=== PATIENT | male | born 1970 | race Caucasian/White ===

== ENCOUNTER 2016-07-02 20:17 | Inpatient (IN) ==
[2016-07-02] MEDS ORDERED: MORPHINE 2 MG/1 ML SYRINGE IV STA ×2 (20:48→21:45)
[2016-07-02] MEDS ORDERED: METOPROLOL TARTRATE 25 MG TABLET PO STA (20:48)
[2016-07-02] MEDS ORDERED: ONDANSETRON 4 MG/2 ML VIAL IV STA (20:48)
[2016-07-02] MEDS ORDERED: ASPIRIN 325 MG TABLET PO STA (20:48)
[2016-07-02] MEDS ORDERED: NITROGLYCERIN 2% OINT 1 INCH/GM PACK TOP STA (20:48)
[2016-07-02] MEDS ORDERED: METOPROLOL TARTRATE 5 MG/5 ML VIAL IV STA (20:50)
[2016-07-02 20:55] LABS: Basophils # 0.1 10*3/uL (0.0-0.2); Basophils % 0.8 % (0.0-0.8); Eosinophils # 0.4 10*3/uL (0.0-0.87); Eosinophils % 2.6 % (0.00-10.9); Hematocrit 45.7 VOL% (42.0-52.0); Hemoglobin 15.7 GM/DL (14.0-18.0); Immature Granulocytes % 0.9 %; Immature Granulocytes Absolute 0.13 #; Lymphocytes % 27.9 % (21.2-54.2); Mean Corpuscular HGB Conc 34.4 GM/DL (32-36); Mean Corpuscular Hemoglobin 31 PG (27-34); Mean Corpuscular Volume 89.6 FL (87-102); Mean Platelet Volume 9.1 FL (9.6-12.0); Monocytes # 1.3 10*3/uL (0.11-0.8); Monocytes % 8.8 % (1.7-12.7); Neutrophils # 8.5 10*3/uL (1.4-7.4); Platelet Count 307 10*3/uL (130-400); Red Cell Distribution Width 12.7 % (9.3-17.3); White Blood Count 14.5 10*3/uL (4.5-13.71)
[2016-07-02] MEDS ORDERED: NITROGLYCERIN 2% OINT 1 INCH/GM PACK TOP ONE (20:59)
[2016-07-02] MEDS ORDERED: ONDANSETRON 4 MG/2 ML VIAL ONE (20:59)
[2016-07-02] MEDS ORDERED: MORPHINE 2 MG/1 ML SYRINGE ONE ×2 (20:59→21:47)
[2016-07-02] MEDS ORDERED: ASPIRIN 325 MG TABLET ONE (20:59)
[2016-07-02] MEDS ORDERED: METOPROLOL TARTRATE 5 MG/5 ML VIAL IV ONE (20:59)
--- NOTE | 2016-07-02 21:00 | Emergency Department Note ---
ICher Kasabria, am scribing for, and in the presence of, Pierre López MD 20:54. Rene Denson Charles R, MD, personally performed the services described in this documentation, ascribed by Leon Kwon in my presence, and it is both accurate and complete . Arrival - Arrival Chief Complaint: Chest Pain Stated Complaint: CHEST PAIN/NITRO X3 ED Nursing Triage Note: PATIENT COMPLAINS OF LEFT SIDED CHEST PAIN THAT RADIATES DOWN LEFT ARM AND UP LEFT SIDE OF NECK. STATES THAT PAIN BEGAN AFTER JUDAISM THIS EVENING. PATIENT STATES THAT HE IS NAUSEATED UPON TRIAGE. HX OF 3 AR WITH 5 STENTS PLACED. LAST STENT PLACED IN March BY DR. ARNOLD. 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 Mode of Arrival: Wheelchair Limitations: No Limitations Source: Patient Time Seen by Provider: 07/02/16 20:40 - History of Present Illness HPI Narrative: This is a 45 y/o white male presenting to the ED with c/o left sided chest pain that radiates into his neck and down his left arm that onset 2 hours ago while at [employer] [facility]. He states he has had 3 AR within the past few years and his EKG is normal but his Troponin levels are always elevated when the chest pain onset. Pt takes Plavix and ASA daily. He had five stents placed in March [address] Arnold and his educational specialist is Dr. Simon. Pt states his pain level is 5/5. He is nauseated, diaphoretic, and mildly SOB but denies fever, chills, vomiting, diarrhea, abdominal pain, and cough. Pt has a PMHx of CAD, HTN , and AR. Onset (ago): hour(s) (3) Consistency: constant Severity: moderate Allergies/Adverse Reactions: Allergies Allergy/AdvReac Type Severity Reaction Status Date / Time No Known Allergies Allergy Verified 01/12/15 19:53 Home Medications: Home Medications Medication Instructions Recorded Confirmed Type Aspirin EC Tab 81 mg PO DAILY tablet 10/25/14 04/22/16 Rx Nitroglycerin Sl Tab [Nitrostat] 0.4 mg SL Q5M PRN #20 tablet 10/25/14 04/22/16 Rx Rosuvastatin Calcium [Crestor] 40 mg PO BEDTIME 03/24/16 04/22/16 History Valsartan/Hydrochlorothiazide 1 each PO QAM 03/25/16 04/22/16 History [Valsartan-Hctz 160-25 mg Tab] Clopidogrel [Plavix] 75 mg PO DAILY #30 tablet 03/26/16 04/22/16 Rx Albuterol Sulfate [Ventolin HFA] 2 puff INH Q6H PRN 04/22/16 04/22/16 History Pantoprazole Tab [Protonix Tab] 40 mg PO BEDTIME 04/22/16 04/22/16 History Clorazepate [Tranxene] 7.5 mg PO BID PRN #60 tablet 04/27/16 Rx Ibuprofen 400 mg PO Q6-8H PRN #30 tablet 04/27/16 Rx Isosorbide Mononitrate [Imdur] 60 mg PO BEDTIME #30 tablet 04/27/16 Rx Polyethylene Glycol Powder 17 gm PO DAILY powder 04/27/16 Rx [Miralax] amLODIPine [Norvasc] 5 mg PO DAILY #30 tablet 04/27/16 Rx Review of System - Review of System 12 point system: reviewed and no additional remarkable complaints except as stated - Review of System Constitutional: Present: diaphoresis. Absent: chills, fever Eyes: Absent: vision change Head/Ears/Nose/Throat: Absent: earache Respiratory: Absent: cough, respiratory distress, wheezing Cardiovascular: Present: chest pain (left sided ), dyspnea on exertion. Absent : syncope Gastrointestinal: Present: nausea. Absent: abdominal pain, vomiting, diarrhea Genitourinary male: Absent: dysuria Musculoskeletal: Present: arm pain (radiating left arm pain from chest pain ). Absent: back pain, leg pain, neck pain Skin: Absent: rash Neurological: Absent: headache, weakness, numbness, confusion, abnormal gait, vertigo Psychiatric: Absent: anxiety Endocrine: Absent: fatigue Hematological/Lymphatic: Absent: easy bleeding Allergic/Immunologic: Absent: facial swelling Medical,Surgical,& Family Hx - Medical History Cardio: History of: CAD, Hypertension, AR Neurology: No history of: Seizures Endocrine: History of: Dyslipidemia Musculoskeletal: History of: Musculoskeletal Problems (right and left shoulder problems) - Surgical History Cardiac Surgeries: Sugical HX of: Cardiac Catheterization (with stents APR 05 X5) Patient Denies: Carotid Endarterectomy Thoracic Surgeries: Patient denies;: Lobectomy HEENT Surgeries: Patient denies: Carotid Endarterectomy, Eye Surgery, Tonsilectomy & Adenoidectomy Orthopedic Surgeries: Surgical HX of;: Orthopedic Surgery (bilateral shoulder surgery. His left shoulder surgery now with) - Family History Family History: Reports;: Family Heart Disease (father at age 69 and had coronary stents) - Social History Smoking Status: Current every day smoker Frequency of Alcohol Use: None Type of Drug Use: None Exam Vital Signs: Vital Signs Temperature 98.3 F 07/02/16 20:26 Pulse Rate 118 H 07/02/16 20:26 Respiratory Rate 22 07/02/16 20:26 Blood Pressure 141/107 07/02/16 20:26 O2 Sat by Pulse Oximetry 94 L 07/02/16 20:26 - General General appearance: alert, in no apparent distress - Head Head exam: Present: atraumatic, normocephalic, normal inspection - Eye Eye exam: Present: normal appearance, PERRL, EOMI - ENT ENT exam: Present: normal exam, normal oropharynx, mucous membranes moist, TM's normal bilaterally, normal external ear exam - Neck Neck exam: Present: normal inspection, full ROM, trachea midline. Absent: tenderness - Chest Chest inspection: Present: symmetric chest wall rise, tenderness (left sided chest pain ) - Respiratory Respiratory exam: Present: normal lung sounds bilaterally, accessory muscle use , prolonged expiratory phase - Cardiovascular Cardiovascular exam: Present: normal rhythm, tachycardia, normal heart sounds. Absent: regular rate - Abdominal Exam Abdominal exam: Present: soft, normal bowel sounds. Absent: distention, tenderness, guarding - Extremities Exam Extremities exam: Present: normal inspection, full ROM, normal capillary refill. Absent: tenderness, pedal edema, calf tenderness - Back Exam Back exam: Present: normal inspection, full ROM. Absent: tenderness - Neurological Exam Neurological exam: Present: alert, oriented X3, CN II-XII intact, normal gait, reflexes normal - Psychiatric Psychiatric exam: Present: normal affect, normal mood - Skin Skin exam: Present: warm, intact, normal color, diaphoresis. Absent: dry Course - Consultations Consultation #1: Dr Harris will admit pt Time: 22:05 Results - Labs CBC & BMP: 07/02/16 20:41 07/02/16 20:52 Lab Results: I have reviewed the patients labs Disposition Clinical Impression: Unstable angina pectoris, CAD (coronary artery disease), Chest pain, Acute chest pain, Dyslipidemia, Hypertension Case discussed with: patient, patient's family Disposition: Still a Patient Condition: Stable Time of Disposition: 22:06
[2016-07-02 21:07] LABS: D-Dimer <= 0.5 MG/L FEU; PT Patient Result 10.2 SECS
--- NOTE | 2016-07-02 21:17 | XRay Report ---
XR chest 1V portable Indication: Chest pain Comparison: Chest x-ray dated April 22, 2016 Technique: Single frontal view of the chest Findings: Continued mild cardiomegaly. Chronic changes of the lungs without focal consolidation, pleural effusion, or pneumothorax. Osseous and surrounding soft tissue structures appear grossly unchanged. IMPRESSION: Mild cardiomegaly without elizabeth pulmonary edema. PROCEDURE INTERPRETED AT [facility] DEPARTMENT OF RADIOLOGY Final Report Signed by: Dr Dylan Reno
[2016-07-02 21:45] LABS: Alanine Aminotransferase 20 U/L (16-61); Albumin 3.9 G/DL (3.4-5.0); Alkaline Phosphatase 114 U/L (45-117); Aspartate Amino Transferase 17 U/L (0-37); Bilirubin,Total < 0.39 MG/DL (0.2-1.0); Blood Urea Nitrogen 10 MG/DL (7-18); Glucose 111 MG/DL (74-106); Magnesium 2.2 MG/DL (1.8-2.4); Osmolality,Calculated 278.4 MOS/KG (273-304); Potassium 3.7 MMOL/L (3.5-5.1); Sodium 140 MMOL/L (136-145); Total Protein 7.7 G/DL (6.4-8.3)
[2016-07-02] MEDS ORDERED: ENOXAPARIN 100 MG/ML SYRINGE SUBCUT STA (22:01)
[2016-07-02] MEDS ORDERED: ENOXAPARIN 100 MG/ML SYRINGE SUBCUT ONE (22:14)
[2016-07-02] MEDS ORDERED: MAGNESIUM SULF RIDER 2 GM in PREMIX 1 EACH IV PRN (22:59)
[2016-07-02] MEDS ORDERED: ONDANSETRON 4 MG/2 ML VIAL IV PRN (22:59)
[2016-07-02] MEDS ORDERED: MAGNESIUM SULF RIDER 4 GM in PREMIX 1 EACH IV PRN (22:59)
[2016-07-02] MEDS ORDERED: ALBUTEROL 2.5 MG/3 ML NEB RESP TX PRN (22:59)
[2016-07-02] MEDS ORDERED: SODIUM CHLORIDE 0.9% 1,000 ML IV SCH (22:59)
[2016-07-02] MEDS ORDERED: POTASSIUM CHLORIDE 20 MEQ TABLET PO PRN (22:59)
[2016-07-02] MEDS: CLORAZEPATE 7.5 MG TABLET PO PRN (23:13)
[2016-07-02] MEDS: NITROGLYCERIN SL 0.4 MG TABLET SL PRN ×3 (23:15→23:40)
[2016-07-02] MEDS: MORPHINE 2 MG/1 ML SYRINGE IV PRN (23:20)
[2016-07-02] MEDS: ENOXAPARIN 100 MG/ML SYRINGE SUBCUT SCH (23:30)
[2016-07-02] MEDS ORDERED: HYDROmorphone 2 MG/1 ML VIAL IV PRN (23:48)
[2016-07-02] MEDS ORDERED: HYDROmorphone 2 MG/1 ML VIAL ONE (23:50)
[2016-07-03] MEDS ORDERED: PANTOPRAZOLE 40 MG VIAL IV ONE (00:05)
[2016-07-03] MEDS ORDERED: ALUMINUM/MAGNES/SIMETH MAX STR 30 ML UDCUP PO PRN (00:08)
[2016-07-03] MEDS: NITROGLYCERIN DRIP 50 MG/250 ML BOTTLE IV SCH ×2 (00:11→22:54)
[2016-07-03] MEDS: NITROGLYCERIN 2% OINT 1 INCH/GM PACK TOP SCH ×4 (00:11→18:25)
[2016-07-03] MEDS ORDERED: MIDAZOLAM 2 MG/2 ML VIAL IV PRN (00:24)
[2016-07-03] MEDS: CLORAZEPATE 7.5 MG TABLET PO PRN ×2 (00:35→18:39)
[2016-07-03] MEDS: METOPROLOL TARTRATE 25 MG TABLET PO SCH ×2 (00:35→09:17)
[2016-07-03] MEDS: MIDAZOLAM 2 MG/2 ML VIAL IV PRN (01:35)
[2016-07-03] MEDS: MORPHINE 2 MG/1 ML SYRINGE IV PRN ×4 (03:08→20:23)
[2016-07-03 06:06] LABS: Basophils # 0.1 10*3/uL (0.0-0.2); Basophils % 0.8 % (0.0-0.8); Eosinophils # 0.4 10*3/uL (0.0-0.87); Eosinophils % 2.9 % (0.00-10.9); Hematocrit 42.3 VOL% (42.0-52.0); Hemoglobin 14.2 GM/DL (14.0-18.0); Immature Granulocytes % 0.9 %; Immature Granulocytes Absolute 0.13 #; Lymphocytes # 4.6 10*3/uL (1.4-4.0); Lymphocytes % 32.2 % (21.2-54.2); Mean Corpuscular HGB Conc 33.6 GM/DL (32-36); Mean Corpuscular Hemoglobin 31 PG (27-34); Mean Corpuscular Volume 91.8 FL (87-102); Mean Platelet Volume 9.6 FL (9.6-12.0); Monocytes # 1.1 10*3/uL (0.11-0.8); Monocytes % 7.7 % (1.7-12.7); Neutrophils # 7.9 10*3/uL (1.4-7.4); Neutrophils % 55.5 % (38.7-73.9); Platelet Count 322 10*3/uL (130-400); Red Blood Count 4.61 10*6/uL (3.8-5.5); Red Cell Distribution Width 12.8 % (9.3-17.3); White Blood Count 14.2 10*3/uL (4.5-13.71)
--- NOTE | 2016-07-03 06:29 | EKG Report ---
Stationary ECG Study [facility] Test Date: 07/02/2016 11:24:45 PM Pat Name: STEPHAN DIALLO Department: Room: 129 Gender: M Pilot: : 1970 Requested by: Raleigh Harris Order Number: [id number] Reading MD: JOAN PAEZ Intervals [place] Rate: 98 P: 48 NV: 162 QRS: 64 QRSD: 77 T: 62 QT: 325 QTc: 381 Interpretive Statements SINUS RHYTHM "HEART ALERT" Electronically Signed On 07-03-16 07:38:24 CONVENTIONAL UNDERWRITER by JOAN PAEZ [email or web address]
[2016-07-03 06:35] LABS: Albumin 3.5 G/DL (3.4-5.0); Bilirubin,Total 0.6 MG/DL (0.2-1.0); Calcium 8.3 MG/DL (8.5-10.1); Magnesium 2.2 MG/DL (1.8-2.4); Osmolality,Calculated 281.1 MOS/KG (273-304); Potassium 4.1 MMOL/L (3.5-5.1); Risk Ratio 3.88; Total Protein 6.8 G/DL (6.4-8.3); VLDL CHOLESTEROL 91.6 MG/DL
--- NOTE | 2016-07-03 07:32 | EKG Report ---
Stationary ECG Study [facility] Test Date: 07/03/2016 7:30:39 AM Pat Name: STEPHAN DIALLO Department: Room: 129 Gender: M Lettuce Cutter: DAVID : 1970 Requested by: Raleigh Harris Order Number: [id number] Reading MD: JOAN PAEZ Intervals [place] Rate: 68 P: 31 FL: 153 QRS: 55 QRSD: 85 T: 62 QT: 364 QTc: 382 Interpretive Statements SINUS RHYTHM Electronically Signed On 07-03-16 07:47:38 INSTITUTIONAL RESEARCH DIRECTOR by JOAN PAEZ [email or web address]
--- NOTE | 2016-07-03 07:41 | XRay Report ---
Exam: XR chest 1V Date: 07/02/2016 11:38 PM Comparison: 07/02/2016 Indication: Chest pain Technique: Portable sitting chest Findings: The heart remains minimally enlarged. No significant change in the appearance of the lungs with chronic scarring. Stable mediastinum and osseous structures. Impression: No acute cardiopulmonary pathology identified. PROCEDURE INTERPRETED AT [facility] DEPARTMENT OF RADIOLOGY Final Report Signed by: Dr. Dana Maya
--- NOTE | 2016-07-03 07:51 | XRay Report ---
Portable chest Date 07/03/2016] Clinical history: Shortness of breath Comparison: 07/02/2016 Technique: Portable AP sitting chest Findings: The heart is borderline in size. Progressive parenchymal findings in the right lower lung zone with very small right pleural effusion. The left lung is more stable appearance. Stable mediastinum and osseous structures. Impression: Progressive atelectasis/infiltration/the right lung base with very small right pleural effusion. PROCEDURE INTERPRETED AT [facility] DEPARTMENT OF RADIOLOGY Final Report Signed by: Dr. Dana Maya
--- NOTE | 2016-07-03 08:07 | Cardiology History & Physical ---
Assessment and Plan (1) Unstable angina Status: Acute Current Visit: Yes (2) CAD (coronary artery disease) Status: Chronic Assessment and plan: 45-year-old male, presenting with unstable angina, suspicious for Prinzmetal's. CAD, status post prior LAD and RCA PCI, smoking, depression/anxiety, smoking, FA PSA post cath. He is still in pain despite medical management. So far, presentation does not suggest extracardiac pain or PE. WBC elevated, without obvious signs of sepsis. -Discussed pathology, prognosis, risks and benefits of management. We will proceed with cardiac catheterization. -Continue aspirin and Plavix, was an early age. -Continue metoprolol. Start Cardizem 30 mg 3 times a day. If he has no significant epicardial disease, and this is truly Prinzmetal's, we'll discontinue the metoprolol and increase the Cardizem to the maximum tolerated dose. -Continue nitroglycerin. -Continue high-dose statin. -Cardiac rehabilitation consult, again discussed the importance of smoking cessation is to control his symptoms. -Keep the ICU. Current Visit: Yes (3) Dyslipidemia Status: Chronic Current Visit: Yes (4) Hypertension Status: Chronic Current Visit: Yes (5) Nausea & vomiting Status: Acute Current Visit: No (6) Depression Status: Chronic Current Visit: No (7) Tobacco abuse Status: Chronic Current Visit: No History of Present Illness Chief complaint: CP History of present illness: Mr. King is a 45 year old male with history of CAD, status post stenting of the LAD and RCA in 2014. He had recurrent chest pain since, and underwent redo cardiac catheterization, which showed stable CAD. Unfortunately, he keeps smoking. He also has lots of anxiety issues. 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 Last night, while he was at rest, developed retrosternal severe chest pain which lasted for hours and he came to the emergency room for evaluation. Nitroglycerin an GI cocktail provided only minimal relief and he was admitted to the ICU. He was started on heparin, aspirin and Plavix was continued, and NTG drip was started, which provided moderate relief. Initial EKG was normal and cardiac biomarkers are normal. Repeat EKG shows borderline ST elevation in inferior and apical leads. He is to having chest discomfort. Blood pressure and heart rate is well controlled. He denies leg swelling shortness of breath but has lots of anxiety issues. He had PSA due to a prior catheterization, which required thrombin injection. Home Medications Medication Instructions Recorded Confirmed Type Aspirin EC Tab 81 mg PO DAILY tablet 10/25/14 07/03/16 Rx Nitroglycerin Sl Tab [Nitrostat] 0.4 mg SL Q5M PRN #20 tablet 10/25/14 07/03/16 Rx Rosuvastatin Calcium [Crestor] 40 mg PO BEDTIME 03/24/16 07/03/16 History Valsartan/Hydrochlorothiazide 1 each PO QAM 03/25/16 07/03/16 History [Valsartan-Hctz 160-25 mg Tab] Clopidogrel [Plavix] 75 mg PO DAILY #30 tablet 03/26/16 07/03/16 Rx Pantoprazole Tab [Protonix Tab] 40 mg PO BEDTIME 04/22/16 07/03/16 History Clorazepate [Tranxene] 7.5 mg PO BID PRN #60 tablet 04/27/16 07/03/16 Rx Ibuprofen 400 mg PO Q6-8H PRN #30 tablet 04/27/16 07/03/16 Rx Isosorbide Mononitrate [Imdur] 60 mg PO BEDTIME #30 tablet 04/27/16 07/03/16 Rx amLODIPine [Norvasc] 5 mg PO DAILY #30 tablet 04/27/16 07/03/16 Rx Amitriptyline HCl 75 mg PO BEDTIME 07/03/16 07/03/16 History Citalopram [CeleXA] 20 mg PO DAILY 07/03/16 07/03/16 History Allergies Allergy/AdvReac Type Severity Reaction Status Date / Time No Known Allergies Allergy Verified 01/12/15 19:53 12 point system: reviewed and no additional remarkable complaints except as stated Medical,Surgical,& Family Hx - Medical History Cardio: History of: CAD, Hypertension, NM (x3) Neurology: No history of: Seizures Endocrine: History of: Dyslipidemia Musculoskeletal: History of: Musculoskeletal Problems (right and left shoulder problems) - Surgical History Cardiac Surgeries: Sugical HX of: Cardiac Catheterization (with stents APR 05. X5) Patient Denies: Carotid Endarterectomy Thoracic Surgeries: Patient denies;: Lobectomy HEENT Surgeries: Patient denies: Carotid Endarterectomy, Eye Surgery, Tonsilectomy & Adenoidectomy Orthopedic Surgeries: Surgical HX of;: Orthopedic Surgery (bilateral shoulder surgery. His left shoulder surgery now with) - Family History Family History: Reports;: Family Heart Disease (father at age 69 and had coronary stents) - Social History Smoking Status: Current every day smoker Frequency of Alcohol Use: None Type of Drug Use: None Cardiology Physical Exam - Constitutional Vitals: Vital Signs Temp Pulse Resp BP Pulse Ox 98.7 F 71 18 109/66 92 L 07/03/16 03:59 07/03/16 06:45 07/03/16 06:45 07/03/16 06:45 07/03/16 06:45 Intake and Output 07/02/16 07/03/16 07/03/16 23:59 07:59 15:59 Intake Total 10.5 / 10.5 Balance 10.5 / 10.5 Intake: IV 10.5 / 10.5 Nitroglycerin Drip 50 mg/ 10.5 / 10.5 250 ml50 mg In 250 ml @ 5 MCG/MIN 1.5 mls/hr IV TITRATE HUGO Rx#: [id number] Oral 0 / 0 Other: Weight 103.963 kg 103.873 kg Patient Weight 07/03/16 23:59 Weight 103.873 kg General appearance: mild distress, over weight - Head Head exam: Present: normal inspection - Eye Eye exam: Absent: conjunctival injection Pupils: Absent: constricted - ENT ENT exam: Present: normal exam - Neck Neck exam: Present: normal inspection - Respiratory Respiratory exam: Present: clear to auscultation bilaterally - Cardiovascular Cardiovascular exam: Present: regular rate and rhythm - GI/Abdominal GI/Abdominal exam: Present: normal bowel sounds - Extremities Exam Extremities exam: Present: normal inspection, normal capillary refill. Absent: edema - Back Exam Back exam: Present: normal inspection - Neurological Exam Neurological exam: Present: alert, oriented X3 - Psychiatric Psychiatric exam: Present: anxious - Skin Skin exam: Present: normal color, warm. Absent: cyanosis Result/EKG - Labs CBC & BMP: 07/03/16 04:07 07/03/16 04:07 Lab Results: I have reviewed the past 24 hour labs Labs: Laboratory Results - last 24 hr 07/02/16 07/03/16 07/03/16 23:25 04:07 04:07 WBC 14.2 H RBC 4.61 Hgb 14.2 Hct 42.3 MCV 91.8 MCH 31 MCHC 33.6 RDW 12.8 Plt Count 322 MPV 9.6 Neut % (Auto) 55.5 Lymph % (Auto) 32.2 [place] % (Auto) 7.7 Eos % (Auto) 2.9 Baso % (Auto) 0.8 Neut # (Auto) 7.9 H Lymph # (Auto) 4.6 H [place] # (Auto) 1.1 H Eos # (Auto) 0.4 Baso # (Auto) 0.1 Immature Gran % 0.9 Nucleated RBC % 0.0 Immature Gran # 0.13 Nucleated RBCs # 0.00 Sodium 142 Potassium 4.1 Chloride 106 Carbon Dioxide 27 Anion Gap 13.1 BUN 10 Creatinine 0.90 GFR Calculation 128 BUN/Creatinine Ratio 11.00 Glucose 90 Calculated Osmolality 281.1 Calcium 8.3 L Magnesium 2.2 Total Bilirubin 0.60 AST 18 ALT 21 Alkaline Phosphatase 105 Troponin I < 0.015 B-Natriuretic Peptide Total Protein 6.8 Albumin 3.5 Globulin 3.3 Albumin/Globulin Ratio 1.0 L Triglycerides 458 H Cholesterol 128 LDL Cholesterol 57.0 VLDL Cholesterol 91.6 HDL Cholesterol 33 L Heart Disease Risk Ratio 3.88 07/03/16 04:07 WBC RBC Hgb Hct MCV MCH MCHC RDW Plt Count MPV Neut % (Auto) Lymph % (Auto) [place] % (Auto) Eos % (Auto) Baso % (Auto) Neut # (Auto) Lymph # (Auto) [place] # (Auto) Eos # (Auto) Baso # (Auto) Immature Gran % Nucleated RBC % Immature Gran # Nucleated RBCs # Sodium Potassium Chloride Carbon Dioxide Anion Gap BUN Creatinine GFR Calculation BUN/Creatinine Ratio Glucose Calculated Osmolality Calcium Magnesium Total Bilirubin AST ALT Alkaline Phosphatase Troponin I B-Natriuretic Peptide 3 Total Protein Albumin Globulin Albumin/Globulin Ratio Triglycerides Cholesterol LDL Cholesterol VLDL Cholesterol HDL Cholesterol Heart Disease Risk Ratio - EKG EKG results: interpreted by me
[2016-07-03] MEDS ORDERED: LIDOCAINE 1% 20 ML VIAL ONE (08:40)
[2016-07-03] MEDS ORDERED: HEPARIN/NACL 0.9% 2 UNITS/ML 1,000 ML IV ONE (08:40)
--- NOTE | 2016-07-03 08:55 | Event Note ---
The patient presented with symptoms consistent with angina. I agree with Dr. Harris the cardiac catheterization would be the best way to assess him. I discussed the risks/alternatives/benefits with the patient who understands and wishes to proceed.
[2016-07-03] MEDS ORDERED: DIAZEPAM 10 MG/2 ML SYRINGE IV ONE (08:56)
[2016-07-03] MEDS ORDERED: diphenhydrAMINE 50 MG/1 ML VIAL IV ONE (08:57)
[2016-07-03] MEDS ORDERED: DILTIAZEM 30 MG TABLET PO SCH (09:00)
[2016-07-03] MEDS ORDERED: PANTOPRAZOLE 40 MG TABLET PO SCH (09:00)
[2016-07-03] MEDS ORDERED: amLODIPine 5 MG TABLET PO SCH (09:00)
[2016-07-03] MEDS: CITALOPRAM 20 MG TABLET PO SCH (09:17)
[2016-07-03] MEDS: CLOPIDOGREL 75 MG TABLET PO SCH (09:17)
[2016-07-03] MEDS: ASPIRIN EC 81 MG TABLET PO SCH (09:18)
[2016-07-03] MEDS: POLYETHYLENE GLYCOL POWDER 17 GM PACK PO SCH (09:18)
--- NOTE | 2016-07-03 09:19 | EKG Report ---
Stationary ECG Study [facility] Test Date: 07/02/2016 8:25:45 PM Pat Name: STEPHAN DIALLO Department: Room: 129 Gender: M Financial Services Agent: Artem : 1970 Requested by: Pierre Perez Order Number: [id number] Reading MD: MAVIS CONTEH Intervals [place] Rate: 112 P: 64 CT: 146 QRS: 71 QRSD: 90 T: 67 QT: 309 QTc: 375 Interpretive Statements SINUS TACHYCARDIA ABNORMAL RHYTHM ECG Electronically Signed On 07-03-16 12:13:42 SLATE ROOFER by MAVIS CONTEH [id number]
[2016-07-03] MEDS ORDERED: NITROGLYCERIN DRIP 50 MG/250 ML BOTTLE IV ONE (09:45)
[2016-07-03] MEDS ORDERED: VERAPAMIL 5 MG/2 ML VIAL ONE (09:45)
[2016-07-03] MEDS ORDERED: MIDAZOLAM 2 MG/2 ML VIAL ONE (09:49)
[2016-07-03] MEDS ORDERED: HYDROmorphone 2 MG/1 ML VIAL ONE (09:49)
[2016-07-03] MEDS ORDERED: ENOXAPARIN 60 MG/0.6 ML SYRINGE ONE (10:06)
[2016-07-03] MEDS ORDERED: SODIUM CHLORIDE 0.9% 1,000 ML IV SCH (10:30)
--- NOTE | 2016-07-03 10:31 | Cardiac Catheterization ---
Date of Procedure:: 07/03/16 Procedure: CLINICAL HISTORY: Please see the scanned history and physical. The patient has a known history of coronary artery disease with previous stenting and presented with symptoms concerning for angina. He is undergoing cardiac catheterization at this time for definitive coronary artery assessment and possible revascularization. PROCEDURES PERFORMED: 1. Right radial percutaneous arteriotomy 2. Left heart catheterization 3. Resting hemodynamics 4. Left ventriculography. 5. Coronary arteriography 6. Hemoband placement DESCRIPTION OF PROCEDURE: After obtaining informed consent, the patient was taken to the labor relations or personnel negotiator, prepped and draped in the usual sterile manner. We accessed the right radial artery using modified Seldinger technique in the usual fashion. We placed a 6-[place] slim sheath without difficulty. We then used a Tig catheter to engage the right coronary and left main coronary arteries to perform angiography in multiple orthogonal views. There were no problems or complications during the procedure. We then used an angled pigtail catheter to perform a left heart catheterization with left ventriculogram and pressure measurement in the usual fashion. After removing the catheter, we placed a HemoBand and removed the sheath without difficulty. There were no problems during the case. HEMODYNAMICS: Please see the accompanying data sheet. CORONARIES: The left main coronary artery is a moderate size vessel which bifurcates into the left anterior descending and left circumflex coronary arteries. The left main coronary artery is angiographically free of significant obstructive disease. The left circumflex coronary artery is a moderate size vessel which gives off 2 small to moderate sized obtuse marginal branches and a small to moderate size posterolateral branch. There are mild luminal irregularities in the circumflex system but no significant focal obstructive disease is seen. The left anterior descending is a moderate size vessel which courses over the anterolateral wall and just reaches the apex. It gives off a moderate to large diagonal branch in its mid segment. There are stents in the LAD which are widely patent. There are mild luminal irregularities in the left anterior descending coronary artery system but no focal obstructive disease is seen. There is some moderate disease in what appears to be septal branch. The right coronary artery is a large-caliber vessel which gives off the posterior descending artery and a posterolateral system. There are stents in the right coronary artery which are widely patent. There are mild to moderate diffuse luminal irregularities of up to 30-40% but no significant obstructive disease is seen. LEFT VENTRICULOGRAPHY: Left ventriculogram shows left ventricular ejection fraction of approximately 60-65% with normal regional wall motion. IMPRESSION: 1. I see no new/significant obstructive disease in the coronary arteries at this time. Previously placed stents are widely patent in the left anterior descending and right coronary arteries. 2. Normal left ventricular systolic function. PLAN: The patient was transferred back to the CCU for postprocedure monitoring and management. We will continue medical management and risk factor modification. Smoking cessation is going to be critical for his improvement. Anesthesia: minimal conscious sedation Surgeon / Physician: Rai Barreto Estimated blood loss: minimal Condition: stable Disposition: ICU/CCU - Medications / Follow-up
[2016-07-03] MEDS: VALSARTAN/HCTZ 80-12.5 MG TABLET PO SCH (11:26)
[2016-07-03] MEDS: DILTIAZEM 90 MG TABLET PO SCH ×2 (15:21→20:24)
[2016-07-03] MEDS ORDERED: ISOSORBIDE MONONITRATE 60 MG TABLET PO SCH ×2 (21:00)
[2016-07-03] MEDS ORDERED: AMITRIPTYLINE 75 MG TABLET PO SCH (21:00)
[2016-07-03] MEDS ORDERED: ROSUVASTATIN 20 MG TABLET PO SCH (21:00)
[2016-07-03] MEDS: ENOXAPARIN 100 MG/ML SYRINGE SUBCUT SCH (22:54)
[2016-07-04] MEDS: NITROGLYCERIN 2% OINT 1 INCH/GM PACK TOP SCH ×3 (01:13→12:15)
[2016-07-04 05:22] LABS: Basophils # 0.1 10*3/uL (0.0-0.2); Basophils % 0.8 % (0.0-0.8); Eosinophils # 0.3 10*3/uL (0.0-0.87); Eosinophils % 2.7 % (0.00-10.9); Hematocrit 43.9 VOL% (42.0-52.0); Hemoglobin 14.6 GM/DL (14.0-18.0); Immature Granulocytes % 0.9 %; Immature Granulocytes Absolute 0.09 #; Lymphocytes # 2.9 10*3/uL (1.4-4.0); Lymphocytes % 28.8 % (21.2-54.2); Mean Corpuscular HGB Conc 33.3 GM/DL (32-36); Mean Corpuscular Hemoglobin 31 PG (27-34); Mean Platelet Volume 9.1 FL (9.6-12.0); Monocytes # 0.9 10*3/uL (0.11-0.8); Monocytes % 9.1 % (1.7-12.7); Neutrophils # 5.9 10*3/uL (1.4-7.4); Neutrophils % 57.7 % (38.7-73.9); Platelet Count 300 10*3/uL (130-400); Red Blood Count 4.72 10*6/uL (3.8-5.5); Red Cell Distribution Width 12.6 % (9.3-17.3); White Blood Count 10.2 10*3/uL (4.5-13.71)
[2016-07-04 05:57] LABS: Calcium 8.8 MG/DL (8.5-10.1); Magnesium 2.3 MG/DL (1.8-2.4); Osmolality,Calculated 278.4 MOS/KG (273-304); Potassium 4.1 MMOL/L (3.5-5.1)
[2016-07-04] MEDS: CITALOPRAM 20 MG TABLET PO SCH (09:33)
[2016-07-04] MEDS: ASPIRIN EC 81 MG TABLET PO SCH (09:33)
[2016-07-04] MEDS: CLOPIDOGREL 75 MG TABLET PO SCH (09:33)
[2016-07-04] MEDS: VALSARTAN/HCTZ 80-12.5 MG TABLET PO SCH (09:33)
[2016-07-04] MEDS: MORPHINE 2 MG/1 ML SYRINGE IV PRN ×2 (09:34→13:51)
[2016-07-04] MEDS: DILTIAZEM 90 MG TABLET PO SCH ×2 (09:41→15:07)
[2016-07-04] MEDS: CLORAZEPATE 7.5 MG TABLET PO PRN (09:41)
[2016-07-04] MEDS: POLYETHYLENE GLYCOL POWDER 17 GM PACK PO SCH (09:41)
[2016-07-04] MEDS: MIDAZOLAM 2 MG/2 ML VIAL IV PRN (10:47)
--- NOTE | 2016-07-04 14:29 | Discharge Summary ---
Hospital Course - Hospital Course Hospital Course: Mr. King is a 45 year old male with history of CAD, status post stenting of the LAD and RCA in 2014. As into to the emergency Department [facility] anywhere 2016 after having recurrent chest pain concerning for angina. 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 He was taken to the cardiac catheterization where Dr. Barreto performed LHC with the following impression noted: IMPRESSION: 1. I see no new/significant obstructive disease in the coronary arteries at this time. Previously placed stents are widely patent in the left anterior descending and right coronary arteries. 2. Normal left ventricular systolic function. PLAN: The patient was transferred back to the CCU for postprocedure monitoring and management. We will continue medical management and risk factor modification. Smoking cessation is going to be critical for his improvement and this was thoroughly discussed on numerous occasions Betablockers discontinued in order to better treat his Prinzmetal angina. We will maximize anti-anginals and CCB. Will add magnesium as well. Consider Ranexa. I believe this was tried in the past and he could not afford to take. He will be given a one week F/U with Dr. Simon. - Time spent with patient Time with patient DS: Greater than 30 minutes Diagnosis - Discharge Diagnosis (1) Chest pain Status: Resolved (2) CAD (coronary artery disease) Status: Chronic (3) Dyslipidemia Status: Chronic (4) Hypertension Status: Chronic (5) Anxiety Status: Chronic (6) Depression Status: Chronic (7) Tobacco abuse Status: Chronic Specialty Discharge - Follow Up or Referrals Follow up with: Cyn Simon MD [Physician] - (1-2 weeks) Discharge Plan - Discharge Data Disposition: Disch To Home/Self Care Condition at Discharge: Stable Discharge Diet: heart healthy Activity: other (Post cath expectations) Hygiene: no restrictions Weight Bearing at Discharge: other (Post cath expectations) Driving: other (Post cath expectations) Contact your physician if you experience:: fever over 101, Difficulty voiding, Redness or swelling, Nausea/Vomiting, Shortness of breath, Bleeding, pain uncontrolled by pain medications - Discharge Medications New Diltiazem Tab [Cardizem Tab] 90 mg PO TID #90 tablet Isosorbide Mononitrate [Imdur] 120 mg PO BEDTIME #30 tablet Magnesium Oxide 400 mg PO BID #60 tablet Continue Aspirin EC Tab 81 mg PO DAILY tablet Nitroglycerin Sl Tab [Nitrostat] 0.4 mg SL Q5M PRN #20 tablet PRN Reason: Chest Pain Rosuvastatin Calcium [Crestor] 40 mg PO BEDTIME Valsartan/Hydrochlorothiazide [Valsartan-Hctz 160-25 mg Tab] 1 each PO QAM Clopidogrel [Plavix] 75 mg PO DAILY #30 tablet Pantoprazole Tab [Protonix Tab] 40 mg PO BEDTIME Clorazepate [Tranxene] 7.5 mg PO BID PRN #60 tablet PRN Reason: Anxiety Amitriptyline HCl 75 mg PO BEDTIME Citalopram [CeleXA] 20 mg PO DAILY Discontinued Ibuprofen 400 mg PO Q6-8H PRN #30 tablet PRN Reason: Pain Isosorbide Mononitrate [Imdur] 60 mg PO BEDTIME #30 tablet amLODIPine [Norvasc] 5 mg PO DAILY #30 tablet - Follow Up or Referral Follow Up: Cyn Simon MD [Physician] - (1-2 weeks) - Forms/Instructions Instructions: Coronary Artery Disease (GEN), Left Heart Catheterization (DC), Heart Healthy Diet (GEN), Cigarette Smoking and Your Health (GEN) Exam - Constitutional Vitals: Period Temp Pulse Resp BP Sys/Zhong Pulse Ox Last 24 Hr 97.4 F-98.7 F 65-90 13-25 88-144/44-90 90-96 Exam: General: Appears well with no apparent distress. Pleasant and cooperative. Appears comfortable. HEENT: PERRL, normocephalic, atraumatic. Mucous membranes moist. No jaundice noted. Conjunctiva moist and clear, sclerae anicteric Neck: No JVD/HJR, no thyromegaly or lymphadenopathy noted. No carotid bruit appreciated Cardiac: Regular rate and rhythm. No murmur rub or gallop. Lungs: Clear to auscultation without accessory muscle use to assist the respiratory pattern. Oxygen and use via nasal cannula Abdomen: Soft, bowel sounds normoactive. Nontender and nondistended. No abdominal bruit or thrill noted. No masses noted. Musculoskeletal: No fluid collection. Decreased range of motion is noted. Extremities: Right radial free of hematoma. No clubbing, cyanosis noted. No edema noted. Upper extremity pulses 2+. Lower extremity pulses 2+. Capillary refill less than 3 seconds. Skin: No unusual lesions or rashes. No skin breakdown appreciated. Neuro: Awake, alert and oriented 3. Moves all extremities well without hemiparesis or paralysis. No essential tremor is appreciated. Discharge Results Procedures and tests throughout hospitalization: Pending Orders 07/05/16 04:00 BMP w/ Mg [Basic Metabolic Panel w/Mg] IN AM CBC [Comp Blood Count Auto Diff] IN AM 07/06/16 04:00 BMP w/ Mg [Basic Metabolic Panel w/Mg] IN AM CBC [Comp Blood Count Auto Diff] IN AM Labs on day of discharge: Labs from last 24 hours 07/04/16 07/04/16 04:43 04:43 WBC 10.2 RBC 4.72 Hgb 14.6 Hct 43.9 MCV 93.0 MCH 31 MCHC 33.3 RDW 12.6 Plt Count 300 MPV 9.1 L Neut % (Auto) 57.7 Lymph % (Auto) 28.8 [place] % (Auto) 9.1 Eos % (Auto) 2.7 Baso % (Auto) 0.8 Neut # (Auto) 5.9 Lymph # (Auto) 2.9 [place] # (Auto) 0.9 H Eos # (Auto) 0.3 Baso # (Auto) 0.1 Immature Gran % 0.9 Nucleated RBC % 0.0 Immature Gran # 0.09 Nucleated RBCs # 0.00 Sodium 140 Potassium 4.1 Chloride 105 Carbon Dioxide 26 Anion Gap 13.1 BUN 12 Creatinine 0.90 GFR Calculation 128 BUN/Creatinine Ratio 13.00 Glucose 100 Calculated Osmolality 278.4 Calcium 8.8 Magnesium 2.3 - Imaging and Cardiology Cardiology Procedure: report reviewed by me Procedure: Chest x-ray: report reviewed by ga DS: Provider Date of admission: 07/02/16 22:09 Primary care physician: Charis Elmore MD Attending physician on admission: Raleigh Harris MD Consults: 07/03/16 08:12 Consult to Cardiac Rehabilitation [CONS] Routine Reason for Cardiac Rehabilitation: Risk Factor Modification Discharging clinician: Shelley Guerin NP Expected date of discharge: 07/04/16
[2016-07-04] MEDS ORDERED: PANTOPRAZOLE 40 MG TABLET PO SCH (14:30)
[2016-07-04] MEDS ORDERED: MAGNESIUM OXIDE 400 MG TABLET PO SCH (15:07)
[2016-07-04 15:08] VITALS: BP 117/78
== END 2016-07-04 16:38 | disposition home or self-care (01) | DRG 287 ==
LOC: N.ED 20:17 → N.EDINP 20:49 → N.TELEN 22:56 → N.CC 07-03 00:03
PROVIDERS: ADMIT Internal Medicine Clinical Cardiac Electrophysiology; ATTEND Internal Medicine Clinical Cardiac Electrophysiology
PROC: CLCCHCL (ICD-10-PCS; 2016-07-03 09:45)

== ENCOUNTER 2016-08-18 13:37 | Observation (INO) ==
[2016-08-18] MEDS ORDERED: NITROGLYCERIN 2% OINT 1 INCH/GM PACK TOP STA ×2 (14:52→20:51)
[2016-08-18] MEDS ORDERED: HYDROmorphone 2 MG/1 ML VIAL IV STA (14:52)
[2016-08-18] MEDS ORDERED: ASPIRIN 325 MG TABLET PO STA (14:52)
--- NOTE | 2016-08-18 15:16 | XRay Report ---
Portable chest Date: 08/18/2016 Clinical history: Chest pain Comparison: 07/03/2016 Technique: Portable AP sitting chest Findings: The heart is borderline in size. Reduced parenchymal and pleural findings at the right lung base. Stable mediastinum and osseous structures. Impression: Interval resolution of the pleural and parenchymal findings at the right lung base. No acute cardiopulmonary pathology identified. PROCEDURE INTERPRETED AT [facility] DEPARTMENT OF RADIOLOGY Final Report Signed by: Dr. Dana Maya
[2016-08-18] MEDS ORDERED: NITROGLYCERIN 2% OINT 1 INCH/GM PACK TOP ONE (15:21)
[2016-08-18] MEDS ORDERED: HYDROmorphone 2 MG/1 ML VIAL ONE (15:22)
[2016-08-18] MEDS ORDERED: ASPIRIN 325 MG TABLET ONE (15:22)
[2016-08-18] MEDS ORDERED: ONDANSETRON 4 MG/2 ML VIAL ONE (15:31)
[2016-08-18] MEDS ORDERED: ONDANSETRON 4 MG/2 ML VIAL IV STA (15:34)
[2016-08-18 15:41] LABS: Basophils # 0.1 10*3/uL (0.0-0.2); Basophils % 0.7 % (0.0-0.8); Eosinophils # 0.3 10*3/uL (0.0-0.87); Eosinophils % 1.5 % (0.00-10.9); Hematocrit 45.4 VOL% (42.0-52.0); Hemoglobin 15.8 GM/DL (14.0-18.0); Immature Granulocytes % 0.6 %; Immature Granulocytes Absolute 0.11 #; Lymphocytes # 4.2 10*3/uL (1.4-4.0); Lymphocytes % 23.1 % (21.2-54.2); Mean Corpuscular HGB Conc 34.8 GM/DL (32-36); Mean Corpuscular Hemoglobin 32 PG (27-34); Mean Corpuscular Volume 90.4 FL (87-102); Mean Platelet Volume 9.3 FL (9.6-12.0); Monocytes # 1.2 10*3/uL (0.11-0.8); Monocytes % 6.7 % (1.7-12.7); Neutrophils # 12.2 10*3/uL (1.4-7.4); Neutrophils % 67.4 % (38.7-73.9); Platelet Count 305 T/CUMM (130-400); Red Blood Count 5.02 MC/CUMM (3.8-5.5); Red Cell Distribution Width 12.9 % (9.3-17.3); White Blood Count 18.1 T/CUMM (4-12)
[2016-08-18 15:52] LABS: PT Patient Result 10.6 SECS; Partial Thromboplastin Time 33.8 SECS (0-40)
[2016-08-18 16:00] LABS: Calcium 8.8 MG/DL (8.5-10.1); Osmolality,Calculated 275.5 MOS/KG (273-304); Potassium 3.6 MMOL/L (3.5-5.1)
[2016-08-18] MEDS ORDERED: MORPHINE 2 MG/1 ML SYRINGE IV STA (16:56)
[2016-08-18] MEDS ORDERED: MORPHINE 2 MG/1 ML SYRINGE ONE (17:04)
[2016-08-18] MEDS ORDERED: MAGNESIUM SULF RIDER 4 GM in PREMIX 1 EACH IV PRN (20:51)
[2016-08-18] MEDS ORDERED: ONDANSETRON 4 MG/2 ML VIAL IV PRN (20:51)
[2016-08-18] MEDS ORDERED: MAGNESIUM SULF RIDER 2 GM in PREMIX 1 EACH IV PRN (20:51)
--- NOTE | 2016-08-18 20:55 | EKG Report ---
Stationary ECG Study [facility] ER Test Date: 08/18/2016 8:54:26 PM Pat Name: STEPHAN DIALLO Department: Room: Gender: M Agricultural Sciences Professor: TRACEY Sanabria : 1970 Requested by: Hiwot Johansen Order Number: [id number] Reading MD: LUIS SNYDER Intervals [place] Rate: 68 P: 36 DE: 160 QRS: 51 QRSD: 89 T: 59 QT: 383 QTc: 400 Interpretive Statements SINUS RHYTHM MINOR NON-SPECIFIC ST-T ABNORMALITIES Electronically Signed On 08-18-16 23:13:42 ROSS CARRIER DRIVER by LUIS SNYDER [email or web address]
[2016-08-18] MEDS: MORPHINE 2 MG/1 ML SYRINGE IV PRN (21:07)
[2016-08-19] MEDS: MORPHINE 2 MG/1 ML SYRINGE IV PRN ×2 (03:40→08:15)
--- NOTE | 2016-08-19 07:46 | EKG Report ---
Stationary ECG Study [facility] ER Test Date: 08/18/2016 1:45:16 PM Pat Name: STEPHAN DIALLO Department: Room: 266 Gender: M Medical Billing Coordinator: : 1970 Requested by: Hiwot Johansen Order Number: [id number] Reading MD: AILEEN CHA Intervals [place] Rate: 92 P: 70 [place]: 162 QRS: 72 QRSD: 84 T: 85 QT: 339 QTc: 388 Interpretive Statements SINUS RHYTHM Electronically Signed On 08-19-16 12:54:25 REGIONAL FACILITIES SPECIALIST by AILEEN CHA [email or web address]
[2016-08-19] MEDS: PANTOPRAZOLE 40 MG TABLET PO SCH (08:14)
[2016-08-19] MEDS ORDERED: NITROGLYCERIN SL 0.4 MG TABLET SL PRN (08:16)
--- NOTE | 2016-08-19 08:23 | EKG Report ---
Stationary ECG Study [facility] Test Date: 08/19/2016 8:23:08 AM Pat Name: STEHPAN DIALLO Department: Room: 266 Gender: M Color Artist: : 1970 Requested by: Castillo Rosen Order Number: [id number] Reading MD: AILEEN CHA Intervals [place] Rate: 74 P: 48 IN: 153 QRS: 56 QRSD: 85 T: 51 QT: 366 QTc: 393 Interpretive Statements SINUS RHYTHM Electronically Signed On 08-19-16 13:09:29 DRAWING TRACER by AILEEN CHA [email or web address]
--- NOTE | 2016-08-19 10:01 | Event Note ---
Patient attempted GXT portion of stress test. During stage II, at 7.1 METs, and heart rate of 1 22 bpm, patient stops treadmill due to shortness of breath. No chest pain noted. No arrhythmia noted. No ST changes noted. He was transitioned to Lexiscan protocol. He tolerated without complaints of chest pain, heaviness or tightness. Again, he was mildly short of breath. No EKG changes noted. Now, he is being sent to nuclear medicine for completion of final scan. Dr. Rosen to read, interpret and advised.
[2016-08-19] MEDS: VALSARTAN/HCTZ 80-12.5 MG TABLET PO SCH (11:02)
[2016-08-19] MEDS: CITALOPRAM 20 MG TABLET PO SCH (11:02)
[2016-08-19] MEDS: VERAPAMIL SR 240 MG TABLET PO SCH (11:02)
--- NOTE | 2016-08-19 11:02 | Cardiology History & Physical ---
I, Roro Obrien, SANJU, am scribing for, and in the presence of, Castillo Rosen MD 11:01. Assessment and Plan - Time spent with patient Time spent with patient: Greater than 30 minutes (1) Chest pain Status: Acute Assessment and plan: SEE PLAN OF CARE LISTED IN HPI. Current Visit: Yes (2) CAD (coronary artery disease) Status: Chronic Assessment and plan: SEE PLAN OF CARE LISTED IN HPI. He has a history of intracoronary stents with no objective evidence of any issue related to coronary ischemia. He's undergone stress testing which demonstrates no evidence of significant perfusion abnormality by nuclear study. I think is reasonable that the patient be discharged home to follow up with Dr. Simon as an outpatient. He recently had cardiac catheterization roughly 6 weeks ago which was negative for evidence of occlusive CAD.. Current Visit: No (3) Anxiety Status: Chronic Assessment and plan: SEE PLAN OF CARE LISTED IN HPI. Current Visit: No (4) Depression Status: Chronic Assessment and plan: SEE PLAN OF CARE LISTED IN HPI. Current Visit: No (5) Dyslipidemia Status: Chronic Assessment and plan: SEE PLAN OF CARE LISTED IN HPI. Current Visit: No (6) Hypertension Status: Chronic Assessment and plan: SEE PLAN OF CARE LISTED IN HPI. Current Visit: No (7) Tobacco abuse Status: Chronic Assessment and plan: SEE PLAN OF CARE LISTED IN HPI. Current Visit: No (8) Leukocytosis, unspecified Status: Acute Assessment and plan: This apparently has been evaluated in the past and follow-up will be confirmed as an outpatient. Current Visit: No History of Present Illness Chief complaint: chest pain History of present illness: Mr. King is a 45 year old male who is routinely followed by Dr. Simon. He has a history of coronary artery disease, status post stenting of the LAD and RCA in 2015. He has had recurrent chest pain since and has had 3 subsequent catheterizations since his stent placement which have revealed no new obstructive disease with widely patent stents. He also has a history of hyperlipidemia, hypertension, depression and anxiety. He continues to smoke half pack per day. He denies alcohol or drug use. He used to work in the [employer] industry. Yesterday afternoon while at rest he began to experience some left-sided chest wall pain which radiated into his left arm and shoulder. He reports this pain felt like a squeezing at first and then a sharp pain. He reports he also had a left sided neck pain, left jaw pain, and pain that felt like it ran up the side of his head. He reports this pain was a 10 out of 10 but then tells me it's not as bad as some pain he has previously had. This pain was accompanied by some shortness of breath and nausea. It is nonreproducible. He can identify no aggravating or alleviating factors. He tells me he took a nitroglycerin and about 20 minutes later had some relief of his pain but then the pain returned. He tells me he took for sublingual nitroglycerin prior to arrival to the emergency department. He states each time he took a nitroglycerin and the pain was relieved, he felt like it returned even worse than before. He reports his pain felt much better after receiving Dilaudid and morphine in the emergency room. His white blood cell counts on arrival is elevated at 18.1. He has no obvious signs of sepsis. He denies recent fever or chills, vomiting, diarrhea, constipation, melena, hematochezia, painful inspiration, palpitations, dizziness , lightheadedness, syncope, headaches, blurry vision. He reports prior to yesterday he has not had any episodes of chest pain or shortness of breath since his discharge on 07/04/2016. 3 sets of troponins have been drawn and are negative. His EKG is benign. He denies missing any dosages of medications. Assessment/Plan: 1. CHEST PAIN - Will keep NPO and plan for nuclear stress testing this morning. Pain is typical for angina, but he has undergone recent LHC which revealed no new disease and widely patent stents. 2. CORONARY ARTERY DISEASE - Stents placed to LAD and RCA in 2014. Continue Plavix, ASA, ARB, CCB, and nitrates. Beta blockers discontinued in the past in order to better treat his Prinzmetal angina. Ranexa has been considered in the past, but he has no insurance and cannot afford to take. 3. ANXIETY - Continue anti-anxiety medication. 4. DEPRESSION - Continue antidepressant. 5. HYPERLIPIDEMIA - Continue statin. 6. HYPERTENSION - Currently well controlled. Continue current medications and adjust as needed. 7. TOBACCO ABUSE - Discussed need for tobacco cessation. Patient reports he has cut back. Reiterated need for complete cessation. He states "I'm trying." Home Medications Medication Instructions Recorded Confirmed Type Aspirin EC Tab 81 mg PO DAILY tablet 10/25/14 08/18/16 Rx Nitroglycerin Sl Tab [Nitrostat] 0.4 mg SL Q5M PRN #20 tablet 10/25/14 08/18/16 Rx Rosuvastatin Calcium [Crestor] 40 mg PO BEDTIME 03/24/16 08/18/16 History Valsartan/Hydrochlorothiazide 1 each PO QAM 03/25/16 08/18/16 History [Valsartan-Hctz 160-25 mg Tab] Clopidogrel [Plavix] 75 mg PO DAILY #30 tablet 03/26/16 08/18/16 Rx Pantoprazole Tab [Protonix Tab] 40 mg PO BEDTIME 04/22/16 08/18/16 History Amitriptyline HCl 75 mg PO BEDTIME 07/03/16 08/18/16 History Citalopram [CeleXA] 20 mg PO QAM 07/03/16 08/18/16 History Isosorbide Mononitrate [Imdur] 120 mg PO BEDTIME #30 tablet 07/04/16 08/18/16 Rx Clorazepate [Tranxene] 7.5 mg PO BID 08/18/16 08/18/16 History Verapamil HCl [Verapamil ER Cap] 240 mg PO DAILY 08/18/16 08/18/16 History fluPHENAZine [Prolixin] 1 mg PO QOTHER DAY PRN 08/18/16 08/18/16 History Allergies Allergy/AdvReac Type Severity Reaction Status Date / Time No Known Allergies Allergy Verified 01/12/15 19:53 12 point system: reviewed and no additional remarkable complaints except as stated Medical,Surgical,& Family Hx - Medical History Cardio: History of: CAD, Hypertension, MD (x3) Neurology: No history of: Seizures Endocrine: History of: Diabetes Mellitus (NIDDM), Dyslipidemia Musculoskeletal: History of: Musculoskeletal Problems (right and left shoulder problems) - Surgical History Cardiac Surgeries: Sugical HX of: Cardiac Catheterization (with stents APR 05. X5) Patient Denies: Carotid Endarterectomy Thoracic Surgeries: Patient denies;: Lobectomy HEENT Surgeries: Patient denies: Carotid Endarterectomy, Eye Surgery, Tonsilectomy & Adenoidectomy Orthopedic Surgeries: Surgical HX of;: Orthopedic Surgery (bilateral shoulder surgery. His left shoulder surgery now with) - Family History Family History: Reports;: Family Heart Disease (father at age 69 and had coronary stents) - Social History Smoking Status: Current every day smoker Frequency of Alcohol Use: None Type of Drug Use: None Cardiology Physical Exam - Constitutional Vitals: Vital Signs Temp Pulse Resp BP Pulse Ox 98.5 F 77 18 111/55 94 L 08/19/16 04:00 08/19/16 04:00 08/19/16 04:00 08/19/16 04:00 08/19/16 04:00 Intake and Output 08/18/16 08/19/16 08/19/16 22:59 06:59 14:59 Intake Total 0 / 0 Output Total 425 / 425 Balance -425 / -425 Intake: Oral 0 / 0 Output: Urine 425 / 425 Other: Weight 226 lb 9 oz General appearance: no acute distress, over weight - Head Head exam: Present: normal inspection, normocephalic - Eye Eye exam: Absent: conjunctival injection, scleral icterus Pupils: Present: SHANNAN. Absent: dilated - ENT ENT exam: Present: normal exam, normal external ear exam - Neck Neck exam: Present: normal inspection. Absent: tenderness - Respiratory Respiratory exam: Present: decreased breath sounds - Cardiovascular Cardiovascular exam: Present: regular rate and rhythm. Absent: carotid bruit, diastolic murmur, systolic murmur - GI/Abdominal GI/Abdominal exam: Present: normal bowel sounds, soft. Absent: mass, tenderness - Extremities Exam Extremities exam: Present: normal inspection, other (peripheral pulses present and palpable bilaterally). Absent: calf tenderness, edema - Back Exam Back exam: Present: normal inspection. Absent: vertebral tenderness - Neurological Exam Neurological exam: Present: alert, oriented X3, other (grossly intact, no resting or essential tremor) - Psychiatric Psychiatric exam: Present: normal affect, normal mood - Skin Skin exam: Present: warm, dry. Absent: cyanosis Result/EKG - Labs CBC & BMP: 08/18/16 15:30 08/18/16 15:30 Lab Results: I have reviewed the past 24 hour labs Labs: Laboratory Results - last 24 hr 08/18/16 21:03 Troponin I < 0.015 - EKG EKG results: interpreted by me, sinus rhythm I, Castillo Rosen MD, personally performed the services described in this documentation, ascribed by Roro Obrien RN in my presence, and it is both accurate and complete .
[2016-08-19] MEDS: ASPIRIN EC 81 MG TABLET PO SCH (11:03)
[2016-08-19] MEDS: CLORAZEPATE 7.5 MG TABLET PO SCH ×2 (11:03→20:58)
[2016-08-19] MEDS: CLOPIDOGREL 75 MG TABLET PO SCH (11:03)
--- NOTE | 2016-08-19 15:55 | Event Note ---
Discussed the results of his stress test with Mr. Crum and his . They were both happy to hear that the stress test looked good. Patient has a history of mediastinal adenopathy identified on previous CT chest. In the past, he has had a mild leukocytosis which has been persistent. In April 2016, Dr. Bryan was consulted and did several rheumatologic studies which were all negative. He recommended repeating CT of chest in July 2016. We will order CT chest this evening and consider referral her consultation to Dr. Bryan pending results. Also, patient described right upper quadrant abdominal pain. He tells me Dr. Simon had ordered a gallbladder ultrasound several weeks ago but he never had this performed. We will keep him nothing by mouth after midnight tonight for gallbladder ultrasound in the morning.
[2016-08-19 16:59] LABS: Apearance,Urine CLEAR (Clear); Bilirubin,Urine Negative (Negative); Blood, Urine Negative (Negative); Glucose,Urine (UA) Negative (Negative); Ketones,Urine Negative (Negative); Nitrite,Urine Negative (Negative); Protein,Urine Negative; RBC,Urine <1 /HPF (0-4); Urine Color Straw (Yellow); Urine Specific Gravity 1.008 (1.001-1.035); Urine Urobilinogen < 2.0 EU/DL (0.2-1.0)
--- NOTE | 2016-08-19 17:04 | CT Report ---
Referring physician: Cyn Simon EXAM: CT chest with contrast DATE: August 19, 2016 COMPARISON: CT chest PE study April 26, 2016 and August 10, 2015 REASON: Chest pain, history of mediastinal adenopathy TECHNIQUE: Axial images of the chest were obtained after administration of 80 cc of Omnipaque 350 IV contrast. Coronal and sagittal reformatted images were also provided. Total DLP is 499.1 mGy*cm. FINDINGS: Vasculature/Heart: The thoracic aorta is normal in size without evidence of dissection. There is mild scattered calcified plaque at the arteries. There is density at the LAD coronary artery, which may be related to calcified plaque or a stent. There is mild cardiomegaly. No pericardial effusion is seen. The pulmonary arteries appear patent as visualized. Lymph nodes: There are again several prominent mediastinal lymph nodes. A right paratracheal lymph node on image 40 measures 1.7 cm in short axis diameter. This is stable compared to August 10, 2015 when considering slight differences in measuring technique. There are also a few mildly prominent hilar lymph nodes bilaterally. These lymph nodes appear stable, favoring a benign process. Follow-up to confirm at least two-year stability could be performed. No suspicious axillary adenopathy is identified. Lower neck: Unremarkable. Lungs: There is moderate emphysema. This emphysema is most prominent at the upper lung zones and is mainly in a centrilobular distribution. There are mild opacities within both lungs, mainly at the dependent aspects. This likely represents atelectasis and fibrosis/scarring given the persistence of the findings. A 0.4 cm noncalcified nodule is seen adjacent to the left major fissure on image 61. It is stable compared to August 10, 2015, suggesting a benign process. There is mild bronchial wall thickening bilaterally which can be seen in bronchitis. Bones: No acute osseous process is identified. Chest wall: Unremarkable. Upper abdomen: No acute process is seen within the upper abdomen. IMPRESSION: 1. There are again several enlarged mediastinal lymph nodes and mildly prominent bilateral hilar lymph nodes. This is stable compared to August 10, 2015, suggesting a benign process. Follow-up could be performed to confirm two-year stability. 2. Moderate emphysema 3. Mild cardiomegaly. 4. There are again mild opacities within both lungs, mainly within the dependent aspects. This is most consistent with atelectasis and likely scarring/fibrosis given the persistence of these findings. The CT exam was performed using one or more of the following dose reduction techniques: Automated exposure control and adjustment of the mA and/or kV according to patient size. PROCEDURE INTERPRETED AT [facility] DEPARTMENT OF RADIOLOGY Final Report Signed by: Dr. Jennifer Brenner
[2016-08-19] MEDS ORDERED: ROSUVASTATIN 20 MG TABLET PO SCH (21:00)
[2016-08-19] MEDS ORDERED: AMITRIPTYLINE 25 MG TABLET PO SCH (21:00)
[2016-08-19] MEDS ORDERED: ISOSORBIDE MONONITRATE 60 MG TABLET PO SCH (21:00)
[2016-08-20 04:55] LABS: Basophils # 0.1 10*3/uL (0.0-0.2); Basophils % 0.8 % (0.0-0.8); Eosinophils # 0.2 10*3/uL (0.0-0.87); Eosinophils % 2.4 % (0.00-10.9); Hematocrit 44.3 VOL% (42.0-52.0); Hemoglobin 15.1 GM/DL (14.0-18.0); Immature Granulocytes % 0.5 %; Immature Granulocytes Absolute 0.05 #; Lymphocytes # 3.4 10*3/uL (1.4-4.0); Mean Corpuscular HGB Conc 34.1 GM/DL (32-36); Mean Corpuscular Hemoglobin 31 PG (27-34); Mean Platelet Volume 9.4 FL (9.6-12.0); Monocytes # 0.8 10*3/uL (0.11-0.8); Monocytes % 8.8 % (1.7-12.7); Neutrophils # 4.9 10*3/uL (1.4-7.4); Neutrophils % 51.5 % (38.7-73.9); Platelet Count 283 T/CUMM (130-400); Red Blood Count 4.92 MC/CUMM (3.8-5.5); Red Cell Distribution Width 12.8 % (9.3-17.3); White Blood Count 9.5 T/CUMM (4-12)
[2016-08-20] MEDS ORDERED: REGADENOSON 0.4 MG/5 ML SYRINGE IV ONE (06:10)
--- NOTE | 2016-08-20 07:03 | Ultrasound Report ---
Exam: US gallbladder Date:08/20/2016 633 AM Indication: Right upper quadrant pain Comparison: 04/22/2016 Findings: Liver: 16.6 cm. No focal abnormalities are present. Gallbladder: Normal size and configuration without stones CBD: 4 mm Pancreas: Partially visualized Kidneys Right kidney: 10.9 x 4.5 x 5.9 cm. No hydronephrosis or perinephric fluid collections or focal mass Left kidney: Not evaluated Aorta IVC: IVC is not well seen. No obvious aneurysm on the submitted image. Aorta is not well demonstrated Spleen: Not evaluated Impression: 1. 1. Normal right upper quadrant sonogram Ultrasound images were stored and captured PROCEDURE INTERPRETED AT [facility] DEPARTMENT OF RADIOLOGY Final Report Signed by: Dr. Carloz Summers
--- NOTE | 2016-08-20 08:09 | Discharge Summary ---
Hospital Course - Hospital Course Hospital Course: Mr. King is a 45 year old male who is routinely followed by Dr. Simon. History of coronary artery disease, status post stenting of the LAD and RCA in 2014. He has had recurrent chest pain since and has had 3 subsequent catheterizations since his stent placement which have revealed no new obstructive disease with widely patent stents. He also has a history of hyperlipidemia, hypertension, depression and anxiety. He continues to smoke half pack per day. He denies alcohol or drug use. 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 The day prior to admission, he began to experience some left-sided chest wall pain which radiated into his left arm and shoulder. He underwent nuclear stress test which revealed no evidence of reversible ischemia. He also underwent CT of chest for a prior history of abnormal CT chest. In the past, he had experienced mediastinal adenopathy and he was to undergo repeat CT chest in July 2016. For this reason, he stated additional night and underwent CT last evening. CT chest is unchanged. Recommended follow-up for repeat CT chest to years. He also had been scheduled for gallbladder ultrasound outpatient. He did not get the appointment, he did not call to arrange the appointment and therefore he missed the appointment. Therefore, he underwent gallbladder ultrasound this morning which revealed no evidence of abnormality. He is not taking a PPI. We will add Prilosec daily to his medication regimen. I stressed the importance of adhering to a medication regimen including Prilosec. He tells me he will be establishing himself with Dr. Flores for primary care needs. He does not know if this is Dr. Lloyd or Dr. James Flores. He currently has appointment to see Dr. Simon tomorrow. I will cancel this point and have him follow with her in approximately 6 weeks. Having felt he met maximal medical therapy, patient is being discharged home in stable condition. Avoiding beta blockers due to history of depression. - Time spent with patient Time with patient DS: Greater than 30 minutes Time spent discussing smoking cessation with patient: 3 to 10 minutes Diagnosis - Discharge Diagnosis (1) Hypertension Status: Chronic (2) Tobacco abuse Status: Chronic (3) Coronary artery disease Status: Chronic (4) Chest pain Status: Resolved (5) Dyslipidemia Status: Chronic (6) Depression Status: Chronic (7) Anxiety Status: Chronic Specialty Discharge - Follow Up or Referrals Follow up with: Cyn Simon MD [Physician] - (6-8 weeks.) Discharge Plan - Discharge Data Disposition: Disch To Home/Self Care Condition at Discharge: Stable Discharge Diet: heart healthy Activity: resume usual activities as tolerated Hygiene: no restrictions Weight Bearing at Discharge: full weight bearing Driving: no restrictions Contact your physician if you experience:: fever over 101, Difficulty voiding, Redness or swelling, Nausea/Vomiting, Shortness of breath, Bleeding, pain uncontrolled by pain medications - Discharge Medications Continue Aspirin EC Tab 81 mg PO DAILY tablet Nitroglycerin Sl Tab [Nitrostat] 0.4 mg SL Q5M PRN #20 tablet PRN Reason: Chest Pain Rosuvastatin Calcium [Crestor] 40 mg PO BEDTIME Valsartan/Hydrochlorothiazide [Valsartan-Hctz 160-25 mg Tab] 1 each PO QAM Clopidogrel [Plavix] 75 mg PO DAILY #30 tablet Amitriptyline HCl 75 mg PO BEDTIME Citalopram [CeleXA] 20 mg PO QAM Isosorbide Mononitrate [Imdur] 120 mg PO BEDTIME #30 tablet fluPHENAZine [Prolixin] 1 mg PO QOTHER DAY PRN PRN Reason: Anxiety Verapamil HCl [Verapamil ER Cap] 240 mg PO DAILY Pantoprazole Tab [Protonix Tab] 40 mg PO BEDTIME #30 caplet Clorazepate [Tranxene] 7.5 mg PO BID - Follow Up or Referral - Forms/Instructions Additional Discharge Instructions: Please cancel patient's appointment with Dr. Simon tomorrow. Please reschedule for 6 - 8 weeks. Exam - Constitutional Vitals: Period Temp Pulse Resp BP Sys/Zhong Pulse Ox Last 24 Hr 96.7 F-98.2 F 81-88 14-20 120-133/56-77 90-95 Exam: General: Appears well with no apparent distress. Pleasant and cooperative. Appears comfortable. HEENT: PERRL, normocephalic, atraumatic. Mucous membranes moist. No jaundice noted. Conjunctiva moist and clear, sclerae anicteric Neck: No JVD/HJR, no thyromegaly or lymphadenopathy noted. No carotid bruit appreciated Cardiac: Regular rate and rhythm. No murmur rub or gallop. Lungs: Clear to auscultation without accessory muscle use to assist the respiratory pattern. Not requiring oxygen. Abdomen: Soft, bowel sounds normoactive. Nontender and nondistended. No abdominal bruit or thrill noted. No masses noted. Musculoskeletal: No fluid collection. Decreased range of motion is noted. Extremities: No clubbing, cyanosis noted. No edema noted. Upper extremity pulses 2+. Lower extremity pulses 2+. Capillary refill less than 3 seconds. Skin: No unusual lesions or rashes. No skin breakdown appreciated. Neuro: Awake, alert and oriented 3. Moves all extremities well without hemiparesis or paralysis. No essential tremor is appreciated. Discharge Results Procedures and tests throughout hospitalization: Pending Orders 08/19/16 07:59 NM radha perf SPECT rest or str Routine 08/19/16 16:58 Blood Culture Routine Labs on day of discharge: Labs from last 24 hours 08/20/16 08/19/16 04:12 Unknown WBC 9.5 D RBC 4.92 Hgb 15.1 Hct 44.3 MCV 90.0 MCH 31 MCHC 34.1 RDW 12.8 Plt Count 283 MPV 9.4 L Neut % (Auto) 51.5 Lymph % (Auto) 36.0 Taylor % (Auto) 8.8 Eos % (Auto) 2.4 Baso % (Auto) 0.8 Neut # (Auto) 4.9 Lymph # (Auto) 3.4 Taylor # (Auto) 0.8 Eos # (Auto) 0.2 Baso # (Auto) 0.1 Immature Gran % 0.5 Nucleated RBC % 0.0 Immature Gran # 0.05 Nucleated RBCs # 0.00 Urine Color Straw Urine Appearance Clear Urine pH 7.0 Ur Specific [place] 1.008 Urine Protein Negative Urine Glucose (UA) Negative Urine Ketones Negative Urine Blood Negative Urine Nitrate Negative Urine Bilirubin Negative Urine Urobilinogen < 2.0 H Urine Leukocytes Negative Urine RBC <1 Ur Culture Indicated? Not indicated - Imaging and Cardiology Cardiology Procedure: report reviewed by me Procedure: Chest x-ray: report reviewed by me, CT - chest: report reviewed by me DS: Provider Date of admission: 08/18/16 17:54 Primary care physician: Charis Elmore MD Attending physician on admission: Cyn Simon, Discharging clinician: Shelley Guerin NP Expected date of discharge: 08/20/16
[2016-08-20 08:31] VITALS: BP 112/69
[2016-08-20] MEDS: CITALOPRAM 20 MG TABLET PO SCH (10:55)
[2016-08-20] MEDS: ASPIRIN EC 81 MG TABLET PO SCH (10:55)
[2016-08-20] MEDS: CLOPIDOGREL 75 MG TABLET PO SCH (10:55)
[2016-08-20] MEDS: CLORAZEPATE 7.5 MG TABLET PO SCH (10:55)
[2016-08-20] MEDS: VALSARTAN/HCTZ 80-12.5 MG TABLET PO SCH (10:55)
[2016-08-20] MEDS: PANTOPRAZOLE 40 MG TABLET PO SCH (10:55)
[2016-08-20] MEDS: VERAPAMIL SR 240 MG TABLET PO SCH (10:55)
--- NOTE | 2016-08-20 14:29 | Nuclear Medicine Report ---
DATE: 08/20/2016 PROCEDURE: Exercise Cardiolite scan which was transitioned to Lexiscan protocol. There were no EKG changes or symptoms consistent with ischemia noted during exercise. At peak exerc ise, the patient was given 30 mCi of technetium complex to Cardiolite. He underwent radionuclide sc anning and this was compared to a rest scan obtained prior to exercise after a 10 mCi dose of techne tium complex to Cardiolite. Comparing stress and rest imaging there appears to be homogenous uptake of radiotracer through all m yocardial segments. No good evidence to suggest significant ischemia or scar can be noted from this perfusion study. Wall motion study demonstrates normal left ventricular systolic wall motion. Gated ejection fractio n is in the 66% range. CONCLUSIONS: 1. GATED EJECTION FRACTION 66%. 2. PERFUSION STUDY WITHOUT GOOD EVIDENCE TO SUGGEST SIGNIFICANT ISCHEMIA OR SCAR. 3. WALL MOTION STUDY WITH NORMAL LEFT VENTRICULAR SYSTOLIC WALL MOTION. Procedure performed and interpreted at [facility] Department of Radiology.
--- NOTE | 2016-09-07 20:12 | Emergency Department Note ---
IColleen Brittany, am scribing for, and in the presence of, Hiwot Johansen MD 14:56. Eleno Denson Leanne, MD, personally performed the services described in this documentation, ascribed by Ellen Macias in my presence, and it is both accurate and complete 553 . Arrival <Carloz Burton - Last Filed: 08/18/16 17:51> - Arrival ED Nursing Triage Note: Pt states that he started having some chest pain with raditaion to left arm, jaw and neck. Pt states that that he had stents x 5 - last stent was 04/06. Pt states that he he is also having nausea and SOB Mode of Arrival: Ambulatory Limitations: No Limitations Source: Patient, Family - History of Present Illness Onset (ago): hour(s) (Started at 1300) Consistency: intermittent Severity: moderate, similar to previous episodes Severity scale (1-10): 10 Quality: stabbing <Hiwot Johansen - Last Filed: 09/07/16 20:12> - Arrival Chief Complaint: Chest Pain Stated Complaint: CHEST PAIN - History of Present Illness HPI Narrative: This is a 45 y/o white male,who presents to the ED with c/o CP which started at 1300 today. He describes the pain as a stabbing pain which comes and goes and will last 10 minutes. He states the pain goes up his neck, into his jaw and head , and down his left arm. He rates the pain as a 10 out of 10. He has had nausea and dyspnea with the chest pain. He denies any diaphoresis, GIBSON or dizziness. He states he has taken Nitro x4, which have not helped. He states the pain feels like it did before he had his heart cath. Pt has no other complaints/pain in the ED at this time. Pt has a PMHx of CAD, AK, HTN, NIDDM, dyslipidemia, and bilateral shoulder problems. Pt has had a cardiac cath with 5 stents and bilateral shoulder surgery. Pt has a family medical Hx of heart disease. Pt is a current every day smoker, but denies the use of alcohol and street drugs. ( Ellen Macias) This is a 45 y/o white male,who presents to the ED with c/o CP which started at 1300 today. He describes the pain as a stabbing pain which comes and goes and will last 10 minutes. He states the pain goes up his neck, into his jaw and head , and down his left arm. He rates the pain as a 10 out of 10. He has had nausea and dyspnea with the chest pain. He denies any diaphoresis, GIBSON or dizziness. He states he has taken Nitro x4, which have not helped. He states the pain feels like it did before he had his heart cath. Pt has no other complaints/pain in the ED at this time. Pt has a PMHx of CAD, AK, HTN, NIDDM, dyslipidemia, and bilateral shoulder problems. Pt has had a cardiac cath with 5 stents and bilateral shoulder surgery. Pt has a family medical Hx of heart disease. Pt is a current every day smoker, but denies the use of alcohol and street drugs. ( Hiwot Johansen) Allergies/Adverse Reactions: Allergies Allergy/AdvReac Type Severity Reaction Status Date / Time No Known Allergies Allergy Verified 08/31/16 20:21 Home Medications: Home Medications Medication Instructions Recorded Confirmed Type Aspirin EC Tab 81 mg PO DAILY tablet 10/25/14 08/31/16 Rx Nitroglycerin Sl Tab [Nitrostat] 0.4 mg SL Q5M PRN #20 tablet 10/25/14 08/31/16 Rx Rosuvastatin Calcium [Crestor] 40 mg PO BEDTIME 03/24/16 08/31/16 History Valsartan/Hydrochlorothiazide 1 each PO QAM 03/25/16 08/31/16 History [Valsartan-Hctz 160-25 mg Tab] Clopidogrel [Plavix] 75 mg PO DAILY #30 tablet 03/26/16 08/31/16 Rx Amitriptyline HCl 75 mg PO BEDTIME 07/03/16 08/31/16 History Citalopram [CeleXA] 20 mg PO QAM 07/03/16 08/31/16 History Isosorbide Mononitrate [Imdur] 120 mg PO BEDTIME #30 tablet 07/04/16 08/31/16 Rx Clorazepate [Tranxene] 7.5 mg PO BID 08/18/16 08/31/16 History Verapamil HCl [Verapamil ER Cap] 240 mg PO DAILY 08/18/16 08/31/16 History fluPHENAZine [Prolixin] 1 mg PO QOTHER DAY PRN 08/18/16 08/31/16 History Pantoprazole Tab [Protonix Tab] 40 mg PO BEDTIME #30 caplet 08/20/16 08/31/16 Rx metFORMIN [Glucophage] 500 mg PO DAILY 08/31/16 08/31/16 History Review of System - Review of System 12 point system: reviewed and no additional remarkable complaints except as stated - Review of System Constitutional: Absent: diaphoresis Cardiovascular: Present: chest pain (Chest pain goes into the neck, jaw, head, and down the left arm), dyspnea on exertion Gastrointestinal: Present: nausea. Absent: vomiting <EstelamerrillloriHiwot - Last Filed: 09/07/16 20:12> Medical,Surgical,& Family Hx - Medical History Cardio: History of: CAD, Hypertension, AK (x3) Neurology: No history of: Seizures Endocrine: History of: Diabetes Mellitus (NIDDM), Dyslipidemia Musculoskeletal: History of: Musculoskeletal Problems (right and left shoulder problems) - Surgical History Cardiac Surgeries: Sugical HX of: Cardiac Catheterization (with stents APR 05. X5) Patient Denies: Carotid Endarterectomy Thoracic Surgeries: Patient denies;: Lobectomy HEENT Surgeries: Patient denies: Carotid Endarterectomy, Eye Surgery, Tonsilectomy & Adenoidectomy Orthopedic Surgeries: Surgical HX of;: Orthopedic Surgery (bilateral shoulder surgery. His left shoulder surgery now with) - Family History Family History: Reports;: Family Heart Disease (father at age 69 and had coronary stents) - Social History Smoking Status: Current every day smoker Frequency of Alcohol Use: None Type of Drug Use: None <Hiwot Johansen - Last Filed: 09/07/16 20:12> Exam - General General appearance: alert, in no apparent distress - Head Head exam: Present: atraumatic, normocephalic, normal inspection - Eye Eye exam: Present: normal appearance, PERRL, EOMI. Absent: nystagmus - ENT ENT exam: Present: normal exam, normal oropharynx, mucous membranes moist - Neck Neck exam: Present: normal inspection, full ROM, trachea midline. Absent: tenderness, meningismus, lymphadenopathy, thyromegaly - Chest Chest inspection: Present: normal inspection, symmetric chest wall rise. Absent : tenderness, rash, abscess - Respiratory Respiratory exam: Present: normal lung sounds bilaterally. Absent: prolonged expiratory phase, rales, respiratory distress, rhonchi, stridor, wheezes - Cardiovascular Cardiovascular exam: Present: regular rate, normal rhythm, normal heart sounds. Absent: murmur, rubs, gallop, clicks - Abdominal Exam Abdominal exam: Present: soft, normal bowel sounds. Absent: distention, tenderness, guarding, rebound, rigidity - Extremities Exam Extremities exam: Present: normal inspection, full ROM, normal capillary refill. Absent: tenderness, pedal edema, joint swelling, calf tenderness - Back Exam Back exam: Present: normal inspection, full ROM. Absent: tenderness, muscle spasm, rashes - Neurological Exam Neurological exam: Present: alert, oriented X3, CN II-XII intact. Absent: motor sensory deficit - Psychiatric Psychiatric exam: Present: normal affect, normal mood. Absent: depressed, agitated, anxious, manic - Skin Skin exam: Present: warm, dry, intact, normal color. Absent: rash, cyanosis, diaphoresis, erythema, pallor, mottled <Hiwot Johansen - Last Filed: 09/07/16 20:12> Vital Signs: Vital Signs Temperature 97.4 F L 08/20/16 08:00 Pulse Rate 86 08/20/16 08:00 Respiratory Rate 18 08/20/16 08:00 Blood Pressure 112/69 08/20/16 08:00 O2 Sat by Pulse Oximetry 93 L 08/20/16 08:00 Course - Reevaluation(s) Time: 17:51 <Carloz Burton - Last Filed: 08/18/16 17:51> <Hiwot Johansen - Last Filed: 09/07/16 20:12> - Reevaluation(s) Reevaluation #1: Patient has remained stable in the ER. His pain was initially relieved with Dilaudid, however, and began to recur. I gave him 4 morphine and he has improved again. I have discussed the patient with Dr. Rosen and will admit him for serial enzymes and further evaluation. (Carloz Burton) Results - Labs CBC & BMP: 08/18/16 15:30 08/18/16 15:30 Lab Results: I have reviewed the patients labs - EKG EKG results: interpreted by ERMD, WNL, sinus rhythm, normal axis, normal QRS, normal ST/T <Carloz Burton - Last Filed: 08/18/16 17:51> - Labs CBC & BMP: 08/20/16 04:12 08/18/16 15:30 - EKG EKG results: interpreted by ERMD, sinus rhythm, no acute changes - Diagnostic Findings Procedure: Chest x-ray: report reviewed by me (Interval resolution of the pleural and parenchymal findings albert the right lung base. No acute cardiopulmonary pathology is identified. ) <Hiwot Johansen - Last Filed: 09/07/16 20:12> - Labs Labs: Laboratory Tests 08/18/16 08/18/16 08/18/16 15:30 15:30 15:30 INR 1.0 Magnesium 2.0 Troponin I B-Natriuretic Peptide 4 08/18/16 15:30 INR Magnesium Troponin I < 0.015 B-Natriuretic Peptide (Carloz Burton) Disposition Case discussed with: patient, patient's family Time of Disposition: 17:53 <Carloz Burton - Last Filed: 08/18/16 17:51> <Hiwot Johansen - Last Filed: 09/07/16 20:12> Clinical Impression: Chest pain Disposition: Still a Patient Condition: Stable New Prescriptions: Rx's Medication Instructions Recorded Pantoprazole Tab [Protonix Tab] 40 mg PO BEDTIME #30 caplet 08/20/16
== END 2016-08-20 11:20 | disposition home or self-care (01) ==
LOC: N.ED 13:37 → N.EDINP 13:37 → N.TELES 08-19 01:52
PROVIDERS: ADMIT Internal Medicine Cardiovascular Disease; ATTEND Internal Medicine Cardiovascular Disease

== ENCOUNTER 2016-09-11 17:49 | Inpatient (IN) ==
[2016-09-11] MEDS ORDERED: SODIUM CHLORIDE 0.9% 500 ML IV STA (18:12)
[2016-09-11] MEDS ORDERED: MORPHINE 2 MG/1 ML SYRINGE IV STA (18:12)
[2016-09-11] MEDS ORDERED: ASPIRIN 325 MG TABLET PO STA (18:12)
[2016-09-11] MEDS ORDERED: ONDANSETRON 4 MG/2 ML VIAL IV STA (18:12)
[2016-09-11] MEDS ORDERED: NITROGLYCERIN 2% OINT 1 INCH/GM PACK TOP STA (18:12)
[2016-09-11] MEDS ORDERED: ENOXAPARIN 100 MG/ML SYRINGE SUBCUT STA (18:12)
[2016-09-11] MEDS ORDERED: MORPHINE 2 MG/1 ML SYRINGE ONE (18:19)
[2016-09-11] MEDS ORDERED: ASPIRIN 325 MG TABLET ONE (18:19)
[2016-09-11] MEDS ORDERED: ONDANSETRON 4 MG/2 ML VIAL ONE (18:19)
[2016-09-11] MEDS ORDERED: ENOXAPARIN 120 MG/0.8 ML SYRINGE SUBCUT ONE (18:19)
[2016-09-11] MEDS ORDERED: NITROGLYCERIN 2% OINT 1 INCH/GM PACK TOP ONE (18:19)
--- NOTE | 2016-09-11 18:20 | Emergency Department Note ---
Ramon Denson Meredith, am scribing for, and in the presence of, Dany Sinha MD 18:06. Bharath Denson Robert M, MD, personally performed the services described in this documentation, ascribed by Claudette Navarro in my presence, and it is both accurate and complete 820 . Arrival - Arrival Chief Complaint: Chest Pain Stated Complaint: chest pains ED Nursing Triage Note: PT C/O MIDSTERNAL CHEST PAIN RADIATING UP LEFT SIDE OF NECK AND DOWN LEFT ARM. ONSET X2 HOURS AGO. PT SENT FROM DR SIMON'S OFFICE. PT WAS ADMITTED HERE FOR 23 HOUR OBS LAST WEEK WITH SERIEL TROPONINS. 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 Mode of Arrival: Ambulatory Limitations: No Limitations Source: Patient, Old Records Reviewed, RN Notes Reviewed Time Seen by Provider: 09/11/16 18:05 - History of Present Illness HPI Narrative: Pt is a 45 y/o white male reporting to the ED with c/o midsternal chest pain which radiates to the left side of his neck and down the left arm. His pain onset 3 hours ago. Pt was sent from Dr. Simon's oiffice. He was admitted here for 23 hours OBS last week with seriel troponins. He had 3 SL NTG prior to arrival. Pt has a history of CAD, HTN, LA, HLD, NIDDM, and COPD. He has has 5 stents placed. Onset (ago): hour(s) Consistency: constant Allergies/Adverse Reactions: Allergies Allergy/AdvReac Type Severity Reaction Status Date / Time No Known Allergies Allergy Verified 09/11/16 17:55 Home Medications: Home Medications Medication Instructions Recorded Confirmed Type Aspirin EC Tab 81 mg PO DAILY tablet 10/25/14 09/11/16 Rx Nitroglycerin Sl Tab [Nitrostat] 0.4 mg SL Q5M PRN #20 tablet 10/25/14 09/11/16 Rx Rosuvastatin Calcium [Crestor] 40 mg PO BEDTIME 03/24/16 09/11/16 History Valsartan/Hydrochlorothiazide 1 each PO QAM 03/25/16 09/11/16 History [Valsartan-Hctz 160-25 mg Tab] Clopidogrel [Plavix] 75 mg PO DAILY #30 tablet 03/26/16 09/11/16 Rx Amitriptyline HCl 75 mg PO BEDTIME 07/03/16 09/11/16 History Citalopram [CeleXA] 20 mg PO QAM 07/03/16 09/11/16 History Isosorbide Mononitrate [Imdur] 120 mg PO BEDTIME #30 tablet 07/04/16 09/11/16 Rx Clorazepate [Tranxene] 7.5 mg PO BID 08/18/16 09/11/16 History Verapamil HCl [Verapamil ER Cap] 240 mg PO DAILY 08/18/16 09/11/16 History fluPHENAZine [Prolixin] 1 mg PO BID 08/18/16 09/11/16 History Pantoprazole Tab [Protonix Tab] 40 mg PO BEDTIME #30 caplet 08/20/16 09/11/16 Rx metFORMIN [Glucophage] 500 mg PO DAILY 08/31/16 09/11/16 History Review of System - Review of System 12 point system: reviewed and no additional remarkable complaints except as stated - Review of System Cardiovascular: Present: as per HPI, chest pain Musculoskeletal: Present: as per HPI, arm pain (left arm radiating from chest), neck pain (left-sided radiating from chest) Medical,Surgical,& Family Hx - Medical History Cardio: History of: CAD, Hypertension, [place] (x3) Neurology: No history of: Seizures Endocrine: History of: Diabetes Mellitus (NIDDM), Dyslipidemia Respiratory: History of: COPD Musculoskeletal: History of: Musculoskeletal Problems (right and left shoulder problems) - Surgical History Cardiac Surgeries: Sugical HX of: Cardiac Catheterization (with stents APR 05. X5) Patient Denies: Carotid Endarterectomy Thoracic Surgeries: Patient denies;: Lobectomy HEENT Surgeries: Patient denies: Carotid Endarterectomy, Eye Surgery, Tonsilectomy & Adenoidectomy Orthopedic Surgeries: Surgical HX of;: Orthopedic Surgery (bilateral shoulder surgery. His left shoulder surgery now with) - Family History Family History: Reports;: Family Heart Disease (father at age 69 and had coronary stents) - Social History Smoking Status: Current every day smoker Frequency of Alcohol Use: None Type of Drug Use: None Exam Vital Signs: Vital Signs Temperature 98.6 F 09/11/16 17:50 Pulse Rate 93 H 09/11/16 18:45 Respiratory Rate 09/11/16 18:45 Blood Pressure 145/73 09/11/16 18:45 O2 Sat by Pulse Oximetry 96 09/11/16 18:45 - General General appearance: alert, anxious, obese - Head Head exam: Present: atraumatic, normocephalic - Eye Eye exam: Present: normal appearance, PERRL, EOMI - ENT ENT exam: Present: mucous membranes moist, normal external ear exam - Neck Neck exam: Present: full ROM, trachea midline. Absent: tenderness, meningismus , lymphadenopathy, thyromegaly - Chest Chest inspection: Present: symmetric chest wall rise. Absent: tenderness, rash - Respiratory Respiratory exam: Present: normal lung sounds bilaterally. Absent: respiratory distress - Cardiovascular Cardiovascular exam: Present: regular rate, normal rhythm, normal heart sounds. Absent: murmur, rubs, gallop - Abdominal Exam Abdominal exam: Present: soft, normal bowel sounds. Absent: distention, tenderness - Extremities Exam Extremities exam: Present: full ROM, normal capillary refill. Absent: tenderness, pedal edema - Back Exam Back exam: Present: full ROM. Absent: tenderness - Neurological Exam Neurological exam: Present: alert, oriented X3, CN II-XII intact. Absent: motor sensory deficit - Psychiatric Psychiatric exam: Present: anxious - Skin Skin exam: Present: warm, intact Course - Consultations Consultation #1: Dr. Beckie Nye will evaluate and admit the patient. We both agree that this is likely not cardiac. He requests GI consult. Time: 19:15 Results - Labs CBC & BMP: 09/11/16 18:05 09/11/16 18:05 Lab Results: I have reviewed the patients labs Labs: Laboratory Tests 09/11/16 18:05 WBC 16.9 H RBC 4.94 Hgb 15.6 Hct 44.7 Plt Count 300 MPV 9.3 L Neut # (Auto) 10.4 H Lymph # (Auto) 4.6 H Coos # (Auto) 1.3 H Lab Results WBC 16.9 T/CUMM (4-12) H 09/11/16 18:05 RBC 4.94 MC/CUMM (3.8-5.5) 09/11/16 18:05 Hgb 15.6 GM/DL (14.0-18.0) 09/11/16 18:05 Hct 44.7 VOL% (42.0-52.0) 09/11/16 18:05 MCV 90.5 FL (87-102) 09/11/16 18:05 MCH 32 PG (27-34) 09/11/16 18:05 MCHC 34.9 GM/DL (32-36) 09/11/16 18:05 RDW 13.2 % (9.3-17.3) 09/11/16 18:05 Plt Count 300 T/CUMM (130-400) 09/11/16 18:05 MPV 9.3 FL (9.6-12.0) L 09/11/16 18:05 Neut % (Auto) 61.7 % (38.7-73.9) 09/11/16 18:05 Lymph % (Auto) 27.1 % (21.2-54.2) 09/11/16 18:05 Coos % (Auto) 7.7 % (1.7-12.7) 09/11/16 18:05 Eos % (Auto) 2.2 % (0.00-10.9) 09/11/16 18:05 Baso % (Auto) 0.7 % (0.0-0.8) 09/11/16 18:05 Neut # (Auto) 10.4 10*3/uL (1.4-7.4) H 09/11/16 18:05 Lymph # (Auto) 4.6 10*3/uL (1.4-4.0) H 09/11/16 18:05 [place] # (Auto) 1.3 10*3/uL (0.11-0.8) H 09/11/16 18:05 Eos # (Auto) 0.4 10*3/uL (0.0-0.87) 09/11/16 18:05 Baso # (Auto) 0.1 10*3/uL (0.0-0.2) 09/11/16 18:05 Immature Gran % 0.6 % 09/11/16 18:05 Nucleated RBC % 0.0 /100WBC 09/11/16 18:05 Immature Gran # 0.10 # 09/11/16 18:05 Nucleated RBCs # 0.00 10*3/uL 09/11/16 18:05 Sodium 139 MMOL/L (136-145) 09/11/16 18:05 Potassium 3.9 MMOL/L (3.5-5.1) 09/11/16 18:05 Chloride 102 MMOL/L (98-107) 09/11/16 18:05 Carbon Dioxide 26 MMOL/L (21-32) 09/11/16 18:05 Anion Gap 14.9 MMOL/L (5.0-15.0) 09/11/16 18:05 BUN 11 MG/DL (7-18) 09/11/16 18:05 Creatinine 1.00 MG/DL (0.70-1.30) 09/11/16 18:05 GFR Calculation 116 ML/MIN 09/11/16 18:05 BUN/Creatinine Ratio 11.00 RATIO (6.00-20.00) 09/11/16 18:05 Glucose 107 MG/DL (74-106) H 09/11/16 18:05 Calculated Osmolality 275.5 MOS/KG (273-304) 09/11/16 18:05 Calcium 8.7 MG/DL (8.5-10.1) 09/11/16 18:05 Magnesium 2.1 MG/DL (1.8-2.4) 09/11/16 18:05 Total Bilirubin 0.40 MG/DL (0.2-1.0) 09/11/16 18:05 AST 34 U/L (0-37) 09/11/16 18:05 ALT 30 U/L (16-61) 09/11/16 18:05 Alkaline Phosphatase 102 U/L (45-117) 09/11/16 18:05 Troponin I < 0.015 NG/ML (0.00-0.045) 09/11/16 18:05 B-Natriuretic Peptide 8 PG/ML (2-100) 09/11/16 18:05 Total Protein 7.6 G/DL (6.4-8.3) 09/11/16 18:05 Albumin 4.4 G/DL (3.4-5.0) 09/11/16 18:05 Globulin 3.2 G/DL (2.3-3.5) 09/11/16 18:05 Albumin/Globulin Ratio 1.3 RATIO (1.1-2.2) 09/11/16 18:05 Lipase 190.0 U/L (73-393) 09/11/16 18:05 - EKG EKG results: interpreted by FUAD COYLE, sinus rhythm, normal axis, normal QRS, not changed from: (31 August 2016) - Diagnostic Findings Procedure: Chest x-ray: image reviewed by me (Stable chest) Disposition Clinical Impression: Acute chest pain, Anxiety, CAD (coronary artery disease), Hypertension, Dyslipidemia Case discussed with: patient, patient's family Disposition: Still a Patient Condition: Stable Time of Disposition: 19:09
[2016-09-11 18:26] LABS: Basophils # 0.1 10*3/uL (0.0-0.2); Basophils % 0.7 % (0.0-0.8); Eosinophils # 0.4 10*3/uL (0.0-0.87); Eosinophils % 2.2 % (0.00-10.9); Hematocrit 44.7 VOL% (42.0-52.0); Hemoglobin 15.6 GM/DL (14.0-18.0); Immature Granulocytes % 0.6 %; Lymphocytes # 4.6 10*3/uL (1.4-4.0); Lymphocytes % 27.1 % (21.2-54.2); Mean Corpuscular HGB Conc 34.9 GM/DL (32-36); Mean Corpuscular Hemoglobin 32 PG (27-34); Mean Corpuscular Volume 90.5 FL (87-102); Mean Platelet Volume 9.3 FL (9.6-12.0); Monocytes # 1.3 10*3/uL (0.11-0.8); Monocytes % 7.7 % (1.7-12.7); Neutrophils # 10.4 10*3/uL (1.4-7.4); Neutrophils % 61.7 % (38.7-73.9); Platelet Count 300 T/CUMM (130-400); Red Blood Count 4.94 MC/CUMM (3.8-5.5); Red Cell Distribution Width 13.2 % (9.3-17.3); White Blood Count 16.9 T/CUMM (4-12)
[2016-09-11 18:29] LABS: PT Patient Result 10.4 SECS
[2016-09-11 18:44] LABS: Albumin 4.4 G/DL (3.4-5.0); Bilirubin,Total 0.4 MG/DL (0.2-1.0); Calcium 8.7 MG/DL (8.5-10.1); Magnesium 2.1 MG/DL (1.8-2.4); Osmolality,Calculated 275.5 MOS/KG (273-304); Potassium 3.9 MMOL/L (3.5-5.1); Total Protein 7.6 G/DL (6.4-8.3)
[2016-09-11] MEDS ORDERED: HYDROmorphone 2 MG/1 ML VIAL IV STA (19:06)
[2016-09-11] MEDS ORDERED: HYDROmorphone 2 MG/1 ML VIAL ONE (19:06)
[2016-09-11] MEDS ORDERED: MAGNESIUM SULF RIDER 4 GM in PREMIX 1 EACH IV PRN (19:15)
[2016-09-11] MEDS ORDERED: diphenhydrAMINE CAP 25 MG CAPSULE PO PRN (19:15)
[2016-09-11] MEDS ORDERED: MAGNESIUM SULF RIDER 2 GM in PREMIX 1 EACH IV PRN (19:15)
[2016-09-11] MEDS ORDERED: DOCUSATE SODIUM 100 MG CAPSULE PO PRN (19:15)
[2016-09-11] MEDS ORDERED: guaiFENesin/DM ER 600-30 MG TABLET PO PRN (19:15)
[2016-09-11] MEDS ORDERED: POTASSIUM CHLORIDE 20 MEQ TABLET PO PRN (19:15)
--- NOTE | 2016-09-11 20:04 | XRay Report ---
XR chest 1V portable Indication: Chest pain Comparison: Chest x-ray dated August 31, 2016 Technique: Single frontal view of the chest Findings: Cardiomediastinal silhouette is stable in configuration. Chronic change of the lungs without focal consolidation, pleural effusion, or pneumothorax. Osseous and surrounding soft tissue structures appear grossly unchanged. IMPRESSION: No acute cardiopulmonary process demonstrated. PROCEDURE INTERPRETED AT [facility] DEPARTMENT OF RADIOLOGY Final Report Signed by: Dr Dylan Reno
[2016-09-11 21:17] LABS: Troponin I Only < 0.015 NG/ML (0.00-0.045)
[2016-09-11] MEDS ORDERED: ZOLPIDEM 5 MG TABLET PO PRN (23:18)
[2016-09-11] MEDS ORDERED: MAGNESIUM HYDROXIDE SUSP 30 ML UDCUP PO PRN (23:18)
[2016-09-11] MEDS ORDERED: ALUM/MAG/SIMETH/LIDO VISC 1:1 30 ML BOTTLE PO PRN (23:25)
[2016-09-11] MEDS: PANTOPRAZOLE 40 MG TABLET PO SCH (23:40)
[2016-09-12] MEDS: ZALEPLON 5 MG CAPSULE PO PRN ×2 (00:37→20:50)
--- NOTE | 2016-09-12 05:49 | EKG Report ---
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
[2016-09-12] MEDS ORDERED: NITROGLYCERIN SL 0.4 MG TABLET SL PRN (06:12)
--- NOTE | 2016-09-12 06:40 | EKG Report ---
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
--- NOTE | 2016-09-12 07:18 | Cardiology History & Physical ---
<Roro Obrien E - Last Filed: 09/12/16 07:16> Assessment and Plan - Time spent with patient Time spent with patient: Greater than 30 minutes (Due to assessment, plan, and documentation) Time spent discussing smoking cessation with patient: 3 to 10 minutes ( Reiterated his need to completely stop smoking. Patient reports "I am trying.") (1) Chest pain Status: Acute Assessment and plan: He has had 3 sets of negative cardiac biomarkers. His EKG shows normal sinus rhythm with no acute changes. He has previously been instructed to follow-up with a GI doctor but has not done this. We have placed a consult to Dr. Olivera with GI and will appreciate his input. Current Visit: Yes (2) CAD (coronary artery disease) Status: Chronic Assessment and plan: He has a history of intracoronary stents with no objective evidence of any issue related to coronary ischemia. He's undergone stress testing which demonstrates no evidence of significant perfusion abnormality by nuclear study. He recently had cardiac catheterization 07/03/16 which was negative for evidence of occlusive CAD. Current Visit: Yes (3) Anxiety Status: Chronic Assessment and plan: Continue anti-anxiety medication. Current Visit: Yes (4) Dyslipidemia Status: Chronic Assessment and plan: Continue statin. Current Visit: Yes (5) Hypertension Status: Chronic Assessment and plan: Currently well controlled. Will continue home medications, monitor, and adjust as needed. Current Visit: Yes (6) Leukocytosis, unspecified Status: Acute Assessment and plan: This is recurrent. On his admission August 31, 2016 he had a white count of 16.6 , prior to that during his admission in July he had an elevated white count of 18.1. Each time he has had no signs of sepsis. We will continue to monitor. Current Visit: Yes (7) Depression Status: Chronic Assessment and plan: Continue antidepressant. Current Visit: No (8) Tobacco abuse Status: Chronic Assessment and plan: Patient has been educated on the harmful effects of tobacco abuse. He currently smokes 8 cigarettes per day and reports he has significantly cut down from what he used to smoke. He was encouraged to work towards a goal of complete cessation. Current Visit: Yes History of Present Illness Chief complaint: Chest pain History of present illness: Mr. King is a 45 year old male who is routinely followed by Dr. Simon. He has a history of coronary artery disease, status post stenting of the LAD and RCA in 2014. He has had recurrent chest pain since and has had 3 subsequent catheterizations since his stent placement which have revealed no new obstructive disease with widely patent stents in the left anterior descending and right coronary arteries. Last heart catheterization was July 03, 2016. He also has a history of hyperlipidemia, hypertension, depression, anxiety, abnormal chest CT with enlarged lymph nodes (follow-up was done July 2015 and this was stable). He continues to smoke 8 cigarettes per day. He denies alcohol or drug use. He used to work in the [employer] industry. He was sent from Dr. Simon's office yesterday afternoon after experiencing excruciating chest pain in the waiting room. According to the patient, he experienced midsternal chest pressure and squeezing which radiated into the left arm and left neck which he states is different from his previous pain. This time he reports he feels more pressure. He rates his pain as a 10 out of 10. It was not precipitated by exertion. It was mildly relieved by sublingual nitroglycerin but did not completely go away. It was associated with shortness of breath and nausea. He denies associated dizziness, lightheadedness, syncope , palpitations. It was relieved after administration of Dilaudid and morphine in the emergency room. He reports he has had 2 episodes of chest pain since his last visit to the hospital but neither episode was as severe as yesterday' s. Each episode of chest pain has occurred at rest. During his normal activity at home he denies exertional chest pain or shortness of breath. Since his last visit in the emergency room on September 01, 2016 he has been referred to GI but has not gone to the appointment. He has been hospitalized 3 times since June with complaints of chest pain. On August 11, 2016 he underwent exercise Cardiolite scan which was transitioned to the Lexiscan protocol. He was found to have a gated ejection fraction of 66%, no good evidence to suggest significant ischemia or scar, normal left ventricular systolic wall motion. Prior to the last admission he had been scheduled for an outpatient gallbladder ultrasound but did not go to the appointment therefore this was done in the hospital on August 20, 2016. Gallbladder ultrasound revealed a normal right upper quadrant. His white blood cell count on admission is elevated at 16.9. He has no obvious signs of sepsis. He denies any recent fever or chills. We will continue to monitor. During his admission on August 19, 2016 he also had an elevated white count at 18.1 with no obvious signs of sepsis. Dr. Thayer to follow with further recommendations. Home Medications Medication Instructions Recorded Confirmed Type Aspirin EC Tab 81 mg PO DAILY tablet 10/25/14 09/11/16 Rx Nitroglycerin Sl Tab [Nitrostat] 0.4 mg SL Q5M PRN #20 tablet 10/25/14 09/11/16 Rx Rosuvastatin Calcium [Crestor] 40 mg PO BEDTIME 03/24/16 09/11/16 History Valsartan/Hydrochlorothiazide 1 each PO QAM 03/25/16 09/11/16 History [Valsartan-Hctz 160-25 mg Tab] Clopidogrel [Plavix] 75 mg PO DAILY #30 tablet 03/26/16 09/11/16 Rx Amitriptyline HCl 75 mg PO BEDTIME 07/03/16 09/11/16 History Citalopram [CeleXA] 20 mg PO QAM 07/03/16 09/11/16 History Isosorbide Mononitrate [Imdur] 120 mg PO BEDTIME #30 tablet 07/04/16 09/11/16 Rx Clorazepate [Tranxene] 7.5 mg PO BID 08/18/16 09/11/16 History Verapamil HCl [Verapamil ER Cap] 240 mg PO DAILY 08/18/16 09/11/16 History fluPHENAZine [Prolixin] 1 mg PO BID 08/18/16 09/11/16 History Pantoprazole Tab [Protonix Tab] 40 mg PO BEDTIME #30 caplet 08/20/16 09/11/16 Rx metFORMIN [Glucophage] 500 mg PO DAILY 08/31/16 09/11/16 History Allergies Allergy/AdvReac Type Severity Reaction Status Date / Time No Known Allergies Allergy Verified 09/11/16 17:55 Review of systems: - Constitutional: Present: As per HPI. Absent: anorexia, chills, daytime sleepiness, excessive sweating, fever(s), frequent falls, headache(s), increased appetite, lethargy, malaise, night sweats, stops breathing during sleep, weakness, weight gain, weight loss, fatigue. - EENT Eyes: Present: As per HPI. Absent: blurry vision, diplopia, loss of vision Ears: Present: As per HPI. Absent: decreased hearing, ear discharge, ear pain Nose, mouth and throat: Present: As per HPI. Absent: dysphagia, epistaxis, headache(s), hoarseness, lip swelling, nasal congestion, neck mass, neck pain, sinus pressure, sore throat, throat swelling, tongue swelling, vertigo - Cardiovascular: Present: chest pain at rest, dyspnea, radiating jaw, neck or arm pain, as per HPI. Absent: chest pain with activity, dyspnea on exertion, edema, claudication, diaphoresis, lightheadedness, orthopnea, palpitations, PND - Respiratory: Present: dyspnea, as per HPI. Absent: dyspnea on exertion, cough , hemoptysis, wheezing, snoring, pain on inspiration - Gastrointestinal: Present: nausea, As per HPI. Absent: abdominal pain, bloating, change in bowel habits, constipation, diarrhea, heartburn, hematemesis , hematochezia, loose stools, melena,vomiting - Genitourinary: Present: As per HPI. Absent: difficulty urinating, dysuria, flank pain, hematuria, nocturia, urinary frequency, urinary incontinence - Musculoskeletal: Present: As per HPI. Absent: arthralgias, back pain, joint swelling, limited range of motion, muscle cramps, muscle weakness, myalgias - Neurological: Present: As per HPI. Absent: abnormal gait, abnormal speech, behavioral changes, confusion, convulsions, disequilibrium, dizziness, focal weakness, frequent falls, headache(s), memory loss, numbness, paresthesias, radicular pain, syncope, tremor(s) - Psychiatric: Present: history of depression, As per HPI. Absent: anxiety, confusion, panic attacks - Endocrine: Present: As per HPI. Absent: cold intolerance, fatigue, heat intolerance, polydipsia, polyphagia - Hematologic/Lymphatic: Present:easy bruising, As per HPI. Absent: easy bleeding, lymphadenopathy Medical,Surgical,& Family Hx - Medical History Cardio: History of: CAD, Hypertension, [place] (x3) Psychological: History of: Anxiety Disorders, Depression Neurology: No history of: Brain Aneurysm, Cerebral Hemorrhage, Cerebrovascular Accident , Cerebral Palsy, Dementia, Migraine, Multiple Sclerosis, Parkinson's Disease, Peripheral Neuropathy, Seizures, TIA, Vertigo, Neurologocal Cancer Endocrine: History of: Diabetes Mellitus (NIDDM), Dyslipidemia Respiratory: History of: COPD Musculoskeletal: History of: Musculoskeletal Problems (right and left shoulder problems) - Surgical History Cardiac Surgeries: Sugical HX of: Cardiac Catheterization (with stents APR 05. X5) Patient Denies: Carotid Endarterectomy Thoracic Surgeries: Patient denies;: Organ Transplant, Lobectomy Neurologic Surgeries: Patient denies: Brain Aneurysm, Cerebral Hemorrhage, Neurologic Surgery HEENT Surgeries: Patient denies: Carotid Endarterectomy, Eye Surgery, Tonsilectomy & Adenoidectomy Orthopedic Surgeries: Surgical HX of;: Orthopedic Surgery (bilateral shoulder surgery. His left shoulder surgery now with) - Family History Family History: Reports;: Family Heart Disease (father at age 69 and had coronary stents), Family Hypertension (father) - Social History Smoking Status: Current every day smoker (Currently smokes 8 cigarettes per day) Have you smoked in the last 12 months: Yes Time spent discussing smoking cessation with patient: 3 to 10 minutes (Patient has been encouraged to completely stop smoking.) Frequency of Alcohol Use: None Type of Drug Use: None Marital Status: Lives With:: Spouse Functional capacity: independent ambulation Cardiology Physical Exam - Constitutional Vitals: Vital Signs Temp Pulse Resp BP Pulse Ox 97.4 F L 76 18 120/69 90 L 09/12/16 04:00 09/12/16 04:00 09/12/16 05:50 09/12/16 04:00 09/12/16 04:00 Intake and Output 09/11/16 09/12/16 09/12/16 22:59 06:59 14:59 Intake Total 200 / 200 Balance 200 / 200 Intake: Oral 200 / 200 Other: # Voids 2 Weight 233 lb 6.4 oz 233 lb Exam: General: Present: Appears Well, No Apparent Distress. Pleasant and cooperative. Appears comfortable. HEENT: Present: PERRL, Normocephaly, atraumatic. Mucus Membranes Moist. No jaundice noted. Conjunctiva moist and clear, sclerae anicteric Neck: Present: Supple Neck, Midline Trachea, No Masses, No Bruit Cardiac: Present: Regular Rate and Rhythm, No Murmur Lungs: Present: Clear to auscultation bilaterally, no wheeze, rhonchi, rales. Neuro: Present: Awake, alert, and oriented x3. Moves all extremities well without hemiparesis or paralysis. Grossly Intact. Absent: Resting Tremor, Essential Tremor Abdomen: Present: Soft, Active Bowel Sounds, No Masses, Non-Tender, nondistended. No abdominal bruit or thrill noted. Skin: Present: Clear. Absent: Rash, No skin breakdown. Musculoskeletal: Present: No Fluid Collection, No Pain, Normal Range of Motion Extremities: Present: Normal Gait, No Clubbing, No Cyanosis, Upper Extr. Pulses 2+, Lower Extr. Pulses 2+, No edema. Capillary refill less than 3 seconds. Result/EKG - Labs CBC & BMP: 09/11/16 18:05 09/11/16 18:05 Lab Results: I have reviewed the past 24 hour labs Labs: Laboratory Results - last 24 hr 09/11/16 09/12/16 20:40 05:37 Total Creatine Kinase 235 203 CK-MB (CK-2) < 1.0 < 1.0 Troponin I < 0.015 0.020 - EKG EKG results: interpreted by me, sinus rhythm <Damián Thayer - Last Filed: 09/12/16 19:28> Assessment and Plan - Time spent with patient Time spent with patient: Greater than 30 minutes (1) Acute chest pain Status: Acute Current Visit: Yes (2) Drug-seeking behavior Problem details: The patient was requesting narcotics to help with his pain. I am referring him to the pain doctor Status: Acute Current Visit: Yes (3) Chest pain Status: Acute Current Visit: Yes (4) Leukocytosis, unspecified Status: Acute Current Visit: Yes (5) Anxiety Status: Chronic Current Visit: Yes (6) CAD (coronary artery disease) Status: Chronic Current Visit: Yes (7) Dyslipidemia Status: Chronic Current Visit: Yes (8) Hypertension Status: Chronic Current Visit: Yes (9) Tobacco abuse Status: Chronic Current Visit: Yes (10) Anxiety Status: Chronic Current Visit: No (11) Depression Status: Chronic Current Visit: No History of Present Illness History of present illness: Mr. King is a 45 year old male Cardiology Physical Exam - Constitutional Vitals: Vital Signs Temp Pulse Resp BP Pulse Ox 98.2 F 75 14 124/71 94 L 09/12/16 16:00 09/12/16 16:00 09/12/16 16:00 09/12/16 16:00 09/12/16 16:00 Intake and Output 09/12/16 09/12/16 09/12/16 07:59 15:59 23:59 Intake Total 240 / 240 Output Total 450 / 450 425 / 425 Balance -210 / -210 -425 / -425 Intake: Oral 240 / 240 Output: Urine 450 / 450 425 / 425 Other: Voiding Method Urinal Urinal # Voids 2 Weight 105.687 kg Patient Weight 09/12/16 23:59 Weight 105.687 kg Result/EKG - Labs CBC & BMP: 09/11/16 18:05 09/11/16 18:05 Labs: Laboratory Results - last 24 hr 09/11/16 09/12/16 09/12/16 20:40 05:37 11:53 POC Glucose 69 L Total Creatine Kinase 235 203 CK-MB (CK-2) < 1.0 < 1.0 Troponin I < 0.015 0.020 Urine Opiates Screen Ur Barbiturates Screen Ur Phencyclidine Scrn U Amphetamine/Methamph U Benzodiazepines Scrn U Cocaine Metab Screen U Cannabinoids Screen 09/12/16 09/12/16 09/12/16 12:30 12:37 Unknown POC Glucose 97 Total Creatine Kinase 169 CK-MB (CK-2) < 1.0 Troponin I < 0.015 Urine Opiates Screen Positive H Ur Barbiturates Screen Negative Ur Phencyclidine Scrn Negative U Amphetamine/Methamph Negative U Benzodiazepines Scrn Positive H U Cocaine Metab Screen Negative U Cannabinoids Screen Negative
[2016-09-12] MEDS ORDERED: PANTOPRAZOLE 40 MG TABLET PO SCH ×2 (09:00→21:00)
[2016-09-12] MEDS ORDERED: HYOSCYAMINE 0.125 MG TABLET PO SCH (09:30)
--- NOTE | 2016-09-12 09:38 | Gastrointestinal Consult Note ---
Assessment and Plan (1) Chest pain Status: Resolved Assessment and plan: 09/09-sudden onset chest pain with radiation to arm and neck, shortness of breath and nausea. Multiple recent hospitalizations as well as cardiac workups with last stent placement in March 2016. On Plavix. Negative cardiac enzymes with normal EKG. Discussed with Dr. Olivera and will proceed with diagnostic only EGD this morning to further evaluate source of chest pain. Plan an addendum to follow by Dr. Olivera Current Visit: No Qualifiers: Chest pain type: unspecified Qualified Code(s): R07.9 - Chest pain, unspecified History of Present Illness Chief complaint: Chest pain History of present illness: Mr. King is a 45 year old male who presented to the ER with onset of chest pain. Patient states he was sitting in the waiting room at Dr. Simon's office on yesterday when he had a sudden onset of chest pain. Patient states the pain was severe in nature, radiated to his left arm and neck, and was associated with shortness of breath and nausea. States this chest pain was different than the ones he has had in the past. Patient has a significant history for coronary artery disease with stents in 2014 as well as a recent stent placed to the LAD in March 2016. Patient has been on Plavix and this is being continued. This is the patient's fifth hospitalization since March for chest pain as well as several ER visits. Patient states the pain is not precipitated by any known factors. He was placed on Protonix in April and states he has been taking this regularly. Denies any GERD symptoms. Denies dysphagia, nausea, vomiting, or recent weight loss. Denies melena or hematochezia however states he does not check his stools. Denies regular NSAID use. States he has never had endoscopy done in the past. His cardiac workup is negative thus far which includes normal EKG and negative cardiac enzymes 3. He is also noted to have had a repeat heart catheterization in June as well as a recent Lexiscan with EF of 66%. He had a gallbladder ultrasound on August 20 which was normal. He continues to have chest pain this morning however has refused the GI cocktail at present. He was seen in April of this past year for GI consult and at that time stools were negative for occult blood. Patient was discharged the day following the consult and no further workup was done at that time. Home Medications Medication Instructions Recorded Confirmed Type Aspirin EC Tab 81 mg PO DAILY tablet 10/25/14 09/11/16 Rx Nitroglycerin Sl Tab [Nitrostat] 0.4 mg SL Q5M PRN #20 tablet 10/25/14 09/11/16 Rx Rosuvastatin Calcium [Crestor] 40 mg PO BEDTIME 03/24/16 09/11/16 History Valsartan/Hydrochlorothiazide 1 each PO QAM 03/25/16 09/11/16 History [Valsartan-Hctz 160-25 mg Tab] Clopidogrel [Plavix] 75 mg PO DAILY #30 tablet 03/26/16 09/11/16 Rx Amitriptyline HCl 75 mg PO BEDTIME 07/03/16 09/11/16 History Citalopram [CeleXA] 20 mg PO QAM 07/03/16 09/11/16 History Isosorbide Mononitrate [Imdur] 120 mg PO BEDTIME #30 tablet 07/04/16 09/11/16 Rx Clorazepate [Tranxene] 7.5 mg PO BID 08/18/16 09/11/16 History Verapamil HCl [Verapamil ER Cap] 240 mg PO DAILY 08/18/16 09/11/16 History fluPHENAZine [Prolixin] 1 mg PO BID 08/18/16 09/11/16 History Pantoprazole Tab [Protonix Tab] 40 mg PO BEDTIME #30 caplet 08/20/16 09/11/16 Rx metFORMIN [Glucophage] 500 mg PO DAILY 08/31/16 09/11/16 History Allergies Allergy/AdvReac Type Severity Reaction Status Date / Time No Known Allergies Allergy Verified 09/11/16 17:55 Medical,Surgical,& Family Hx - Medical History Cardio: History of: CAD, Hypertension, [place] (x3) Psychological: History of: Anxiety Disorders, Depression Neurology: No history of: Brain Aneurysm, Cerebral Hemorrhage, Cerebrovascular Accident , Cerebral Palsy, Dementia, Migraine, Multiple Sclerosis, Parkinson's Disease, Peripheral Neuropathy, Seizures, TIA, Vertigo, Neurologocal Cancer Endocrine: History of: Diabetes Mellitus (NIDDM), Dyslipidemia Respiratory: History of: COPD Musculoskeletal: History of: Musculoskeletal Problems (right and left shoulder problems) - Surgical History Cardiac Surgeries: Sugical HX of: Cardiac Catheterization (with stents APR 05. X5) Patient Denies: Carotid Endarterectomy Thoracic Surgeries: Patient denies;: Organ Transplant, Lobectomy Neurologic Surgeries: Patient denies: Brain Aneurysm, Cerebral Hemorrhage, Neurologic Surgery HEENT Surgeries: Patient denies: Carotid Endarterectomy, Eye Surgery, Tonsilectomy & Adenoidectomy Orthopedic Surgeries: Surgical HX of;: Orthopedic Surgery (bilateral shoulder surgery. His left shoulder surgery now with) - Family History Family History: Reports;: Family Heart Disease (father at age 69 and had coronary stents), Family Hypertension (father) - Social History Smoking Status: Current every day smoker (Currently smokes 8 cigarettes per day) Frequency of Alcohol Use: None Type of Drug Use: None 12 point system: reviewed and no additional remarkable complaints except as stated - Constitutional Constitutional: Present: as per HPI - EENT Eyes: Present: as per HPI Ears: Present: as per HPI Nose, mouth and throat: Present: as per HPI - Cardiovascular Cardiovascular: Present: as per HPI, chest pain at rest, dyspnea - Respiratory Respiratory: Present: as per HPI - Gastrointestinal Gastrointestinal: Present: as per HPI - Genitourinary Genitourinary: Present: as per HPI - Musculoskeletal Musculoskeletal: Present: as per HPI - Neurological Neurological: Present: as per HPI - Psychiatric Psychiatric: Present: as per HPI - Endocrine Endocrine: Present: as per HPI - Hematologic/Lymphatic Hematologic/Lymphatic: Present: as per HPI Exam - Constitutional Vitals: Period Temp Pulse Resp BP Sys/Zhong Pulse Ox Last 24 Hr 97.4 F-98.6 F 75-88 16-20 111-140/62-83 90-98 General appearance: normal weight, no acute distress - Head Head exam: Present: normal inspection, normocephalic - Eye Eye exam: Present: other (lids and conjunctivae unremarkable). Absent: scleral icterus - ENT ENT exam: Present: normal exam, normal oropharynx - Neck Neck exam: Present: normal inspection - Respiratory Respiratory exam: Present: clear to auscultation bilaterally. Absent: rales, rhonchi, wheezes - Cardiovascular Cardiovascular exam: Present: regular rate and rhythm. Absent: diastolic murmur , JVD, systolic murmur - GI/Abdominal GI/Abdominal exam: Present: normal bowel sounds, soft. Absent: ascites, distended, mass, organomegaly, tenderness - Extremities Exam Extremities exam: Present: normal inspection, full ROM - Back Exam Back exam: Present: normal inspection - Neurological Exam Neurological exam: Present: alert, oriented X3 - Psychiatric Psychiatric exam: Present: normal affect, normal mood - Skin Skin exam: Present: normal color, warm, dry Results - Labs CBC & BMP: 09/11/16 18:05 09/11/16 18:05 Lab Results: I have reviewed the past 24 hour labs
[2016-09-12] MEDS: ASPIRIN EC 81 MG TABLET PO SCH ×2 (10:39→12:53)
[2016-09-12] MEDS: VERAPAMIL SR 240 MG TABLET PO SCH ×2 (10:39→12:54)
[2016-09-12] MEDS: CITALOPRAM 20 MG TABLET PO SCH ×2 (10:40→12:54)
[2016-09-12] MEDS: CLOPIDOGREL 75 MG TABLET PO SCH ×2 (10:40→12:54)
[2016-09-12] MEDS: PANTOPRAZOLE 40 MG TABLET PO SCH ×2 (10:40→20:49)
[2016-09-12] MEDS: CLORAZEPATE 7.5 MG TABLET PO SCH ×3 (10:40→20:50)
[2016-09-12] MEDS: VALSARTAN/HCTZ 80-12.5 MG TABLET PO SCH ×2 (10:40→12:53)
[2016-09-12] MEDS: metFORMIN 500 MG TABLET PO SCH (10:40)
[2016-09-12] MEDS ORDERED: DEXTROSE 50% 25 GM/50 ML VIAL IV ONE ×2 (11:54→11:58)
[2016-09-12] MEDS ORDERED: ROPIVACAINE 0.5% 30 ML VIAL NERVEBLOCK ONE (11:55)
--- NOTE | 2016-09-12 11:55 | History and Physical Update ---
History and Physical Update - History and Physical H&P was reviewed, the patient examined and there: are no changes in the patients condition since last H&P was completed.
[2016-09-12] MEDS ORDERED: PROPOFOL 200 MG/20 ML VIAL IV ONE (11:56)
[2016-09-12] MEDS ORDERED: TRIAMCINOLONE ACETONIDE 40 MG/1 ML VIAL IM ONE (11:56)
--- NOTE | 2016-09-12 12:10 | Operative Note ---
Date of procedure: 09/12/16 Pre-op diagnosis: Recurrent noncardiac chest pain Procedure: Procedure: Esophagogastroduodenoscopy with biopsies gastric ulcers Brief clinical abstract: Patient is a 45-year-old male who is had recurrent episodes of noncardiac chest pain over the last 6 months. He is currently admitted with this. Indication for procedure: Recurrent noncardiac chest pain, nausea Endoscopic findings:[After informed consent was obtained, the patient was placed in the left lateral decubitus position. The gastroscope was inserted in the upper esophagus under direct vision with no resistance encountered. Esophageal mucosa appeared normal with squamocolumnar junction sharply demarcated at the diaphragmatic indentation. The endoscope was advanced in the stomach which was carefully examined including retroflexed view of the cardia and fundus. There were 3 ulcers in the prepyloric gastric antrum, each approximately 5 mm diameter. Multiple biopsies were obtained from the margin and base of these for pathologic examination. The pyloric channel, duodenal bulb, second and third portion of the duodenum appeared normal. The endoscope was removed and patient appeared to tolerate the procedure well. Impression: Gastric antral ulcers-? Nonsteroidal or H. pylori related. Recommendations: Twice daily PPI therapy for now. Ask about nonsteroidal use and have discontinue if taking. F Anesthesia: MAC Surgeon / Physician: Carloz Olivera Estimated blood loss: minimal Specimens: other (Gastric ulcers) Condition: stable Disposition: post procedure unit Results - Labs CBC & BMP: 09/11/16 18:05 09/11/16 18:05 Discharge Plan - Discharge Medications No Action Aspirin EC Tab 81 mg PO DAILY tablet Nitroglycerin Sl Tab [Nitrostat] 0.4 mg SL Q5M PRN #20 tablet PRN Reason: Chest Pain Rosuvastatin Calcium [Crestor] 40 mg PO BEDTIME Valsartan/Hydrochlorothiazide [Valsartan-Hctz 160-25 mg Tab] 1 each PO QAM Clopidogrel [Plavix] 75 mg PO DAILY #30 tablet Amitriptyline HCl 75 mg PO BEDTIME Citalopram [CeleXA] 20 mg PO QAM Isosorbide Mononitrate [Imdur] 120 mg PO BEDTIME #30 tablet fluPHENAZine [Prolixin] 1 mg PO BID Verapamil HCl [Verapamil ER Cap] 240 mg PO DAILY Pantoprazole Tab [Protonix Tab] 40 mg PO BEDTIME #30 caplet metFORMIN [Glucophage] 500 mg PO DAILY Clorazepate [Tranxene] 7.5 mg PO BID - Follow Up or Referral - Forms/Instructions
[2016-09-12] MEDS ORDERED: ROPIVACAINE 0.5% 30 ML VIAL ONE (12:27)
[2016-09-12] MEDS ORDERED: methylPREDNISolone ACETATE 40 MG/1 ML VIAL ONE (12:29)
[2016-09-12] MEDS ORDERED: TRIAMCINOLONE ACETONIDE 40 MG/1 ML VIAL ONE (12:31)
--- NOTE | 2016-09-12 12:52 | EKG Report ---
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
--- NOTE | 2016-09-12 13:13 | Pain Management Consult Note ---
Assessment and Plan (1) Chest pain Problem details: Left anterior chest wall pain Status: Resolved Assessment and plan: 09/12/2016. The patient has atypical left chest wall pain that radiates to the left neck and left arm. Throbbing aching discomfort. He has had episodes of this in the past. Cleared by cardiology. On exam he has some moderate tenderness left chest wall, left-sided neck pain, motor exam intact in the upper extremities. Part of the pain I think is radiating from the cervical spine, part of it is chest wall pain with intercostal neuralgia. He also has an element of costochondritis. We will proceed with intercostal nerve block\ costochondral block. Agree with avoiding opioids in this patient. These note the patient is a patient of Dr. Oglesby should follow-up with Dr. Oglesby in clinic if necessary. y Current Visit: No Qualifiers: Chest pain type: intercostal pain Qualified Code(s): R07.82 - Intercostal pain History of Present Illness History of present illness: Mr. King is a 45 year old male with several day history of left chest wall pain that radiates to left arm and left neck. He has had episodes of this in the past. He describes as a severe aching throbbing discomfort. The pain is constant. Home Medications Medication Instructions Recorded Confirmed Type Aspirin EC Tab 81 mg PO DAILY tablet 10/25/14 09/11/16 Rx Nitroglycerin Sl Tab [Nitrostat] 0.4 mg SL Q5M PRN #20 tablet 10/25/14 09/11/16 Rx Rosuvastatin Calcium [Crestor] 40 mg PO BEDTIME 03/24/16 09/11/16 History Valsartan/Hydrochlorothiazide 1 each PO QAM 03/25/16 09/11/16 History [Valsartan-Hctz 160-25 mg Tab] Clopidogrel [Plavix] 75 mg PO DAILY #30 tablet 03/26/16 09/11/16 Rx Amitriptyline HCl 75 mg PO BEDTIME 07/03/16 09/11/16 History Citalopram [CeleXA] 20 mg PO QAM 07/03/16 09/11/16 History Isosorbide Mononitrate [Imdur] 120 mg PO BEDTIME #30 tablet 07/04/16 09/11/16 Rx Clorazepate [Tranxene] 7.5 mg PO BID 08/18/16 09/11/16 History Verapamil HCl [Verapamil ER Cap] 240 mg PO DAILY 08/18/16 09/11/16 History fluPHENAZine [Prolixin] 1 mg PO BID 08/18/16 09/11/16 History Pantoprazole Tab [Protonix Tab] 40 mg PO BEDTIME #30 caplet 08/20/16 09/11/16 Rx metFORMIN [Glucophage] 500 mg PO DAILY 08/31/16 09/11/16 History Allergies Allergy/AdvReac Type Severity Reaction Status Date / Time No Known Allergies Allergy Verified 09/11/16 17:55 Medical,Surgical,& Family Hx - Medical History Cardio: History of: CAD, Hypertension, [place] (x3) Psychological: History of: Anxiety Disorders, Depression Neurology: No history of: Brain Aneurysm, Cerebral Hemorrhage, Cerebrovascular Accident , Cerebral Palsy, Dementia, Migraine, Multiple Sclerosis, Parkinson's Disease, Peripheral Neuropathy, Seizures, TIA, Vertigo, Neurologocal Cancer Endocrine: History of: Diabetes Mellitus (NIDDM), Dyslipidemia Respiratory: History of: COPD Musculoskeletal: History of: Musculoskeletal Problems (right and left shoulder problems) - Surgical History Cardiac Surgeries: Sugical HX of: Cardiac Catheterization (with stents APR 05. X5) Patient Denies: Carotid Endarterectomy Thoracic Surgeries: Patient denies;: Organ Transplant, Lobectomy Neurologic Surgeries: Patient denies: Brain Aneurysm, Cerebral Hemorrhage, Neurologic Surgery HEENT Surgeries: Patient denies: Carotid Endarterectomy, Eye Surgery, Tonsilectomy & Adenoidectomy Orthopedic Surgeries: Surgical HX of;: Orthopedic Surgery (bilateral shoulder surgery. His left shoulder surgery now with) - Family History Family History: Reports;: Family Heart Disease (father at age 69 and had coronary stents), Family Hypertension (father) - Social History Smoking Status: Current every day smoker (Currently smokes 8 cigarettes per day) Frequency of Alcohol Use: None Type of Drug Use: None - Constitutional Constitutional: Present: excessive sweating - Gastrointestinal Gastrointestinal: Present: bloating, constipation, cramping Exam - Constitutional Vitals: Period Temp Pulse Resp BP Sys/Zhong Pulse Ox Last 24 Hr 97.4 F-98.6 F 75-88 16-20 111-155/62-85 90-98 General appearance: over weight - Eye Eye exam: Present: EOMI - Neck Neck exam: Present: normal inspection, other (Left-sided tenderness) - Respiratory Respiratory exam: Present: chest wall tenderness (On the left) - Cardiovascular Cardiovascular exam: Present: RRR - GI/Abdominal GI/Abdominal exam: Present: normal bowel sounds - Neurological Exam Neurological exam: Present: alert, oriented X3, other (Anxious appearing) Speech: Present: normal Results - Labs CBC & BMP: 09/11/16 18:05 09/11/16 18:05
--- NOTE | 2016-09-12 13:18 | Operative Note ---
Date of procedure: 09/12/16 Pre-op diagnosis: Costochondritis Post-op diagnosis: same Procedure: Preop diagnosis: #1 costochondritis, #2 intercostal neuralgia, #3 atypical chest pain, #4 left neck pain. Postop diagnosis: Same Procedure: Intercostal nerve block and costochondral block at the left levels T3 -T4-T5 and T6 anteriorly. Anesthesia: Local Complications: None Findings: The patient tolerated the procedure well with significant pain relief. History of present illness: Please see separate note. Also the patient is an patient of Dr. Oglesby. He has atypical left chest wall pain. This is intercostal neuralgia\costochondritis with an element of left neck pain. Will offer him intercostal nerve blocks today. Procedure note: The risk benefits and indications of the procedure were explained to the patient, including the option to do nothing else, he understood these and wished to proceed. The patient was placed in the supine position, left anterior chest wall was prepped with alcohol allowed to dry. Using a 25-gauge 1/2 inch needle, the intercostal nerves and costochondral joints were anesthetized anteriorly on the left. Each site that I injected including T3-T4-T5 and T6 received 4 cc of 0.5% ropivacaine +5 mg of Kenalog. Tolerated the procedure well and reported excellent pain relief. Anesthesia: local Surgeon / Physician: Stephane Mcneill Estimated blood loss: none Specimens: none sent Condition: stable Disposition: floor Results - Labs CBC & BMP: 09/11/16 18:05 09/11/16 18:05 Discharge Plan - Discharge Data Condition at Discharge: Stable - Discharge Medications No Action Aspirin EC Tab 81 mg PO DAILY tablet Nitroglycerin Sl Tab [Nitrostat] 0.4 mg SL Q5M PRN #20 tablet PRN Reason: Chest Pain Rosuvastatin Calcium [Crestor] 40 mg PO BEDTIME Valsartan/Hydrochlorothiazide [Valsartan-Hctz 160-25 mg Tab] 1 each PO QAM Clopidogrel [Plavix] 75 mg PO DAILY #30 tablet Amitriptyline HCl 75 mg PO BEDTIME Citalopram [CeleXA] 20 mg PO QAM Isosorbide Mononitrate [Imdur] 120 mg PO BEDTIME #30 tablet fluPHENAZine [Prolixin] 1 mg PO BID Verapamil HCl [Verapamil ER Cap] 240 mg PO DAILY Pantoprazole Tab [Protonix Tab] 40 mg PO BEDTIME #30 caplet metFORMIN [Glucophage] 500 mg PO DAILY Clorazepate [Tranxene] 7.5 mg PO BID - Follow Up or Referral - Forms/Instructions Instructions: Acute Coronary Syndrome
[2016-09-12 13:25] LABS: Troponin I Only < 0.015 NG/ML (0.00-0.045)
[2016-09-12 13:49] LABS: Barbiturates Screen,Urine Negative (Negative); Benzodiazepines Screen,Urine Positive (Negative); Cannabinoid Screen,Urine Negative (Negative); Opiate Screen,Urine Positive (Negative); Phencyclidine Screen,Urine Negative (Negative)
[2016-09-12] MEDS: HYOSCYAMINE 0.125 MG TABLET SL SCH (20:49)
[2016-09-12] MEDS ORDERED: AMITRIPTYLINE 75 MG TABLET PO SCH (21:00)
[2016-09-12] MEDS ORDERED: ISOSORBIDE MONONITRATE 60 MG TABLET PO SCH (21:00)
[2016-09-12] MEDS ORDERED: ROSUVASTATIN 20 MG TABLET PO SCH (21:00)
[2016-09-13 04:57] LABS: Basophils # 0.1 10*3/uL (0.0-0.2); Basophils % 0.4 % (0.0-0.8); Eosinophils % 0.2 % (0.00-10.9); Hematocrit 44.7 VOL% (42.0-52.0); Hemoglobin 15.3 GM/DL (14.0-18.0); Immature Granulocytes % 0.7 %; Immature Granulocytes Absolute 0.09 #; Lymphocytes % 15.7 % (21.2-54.2); Mean Corpuscular HGB Conc 34.2 GM/DL (32-36); Mean Corpuscular Hemoglobin 31 PG (27-34); Mean Corpuscular Volume 89.8 FL (87-102); Mean Platelet Volume 9.6 FL (9.6-12.0); Monocytes # 0.7 10*3/uL (0.11-0.8); Monocytes % 5.7 % (1.7-12.7); Neutrophils % 77.3 % (38.7-73.9); Platelet Count 303 T/CUMM (130-400); Red Blood Count 4.98 MC/CUMM (3.8-5.5); Red Cell Distribution Width 13.1 % (9.3-17.3); White Blood Count 12.9 T/CUMM (4-12)
[2016-09-13 05:30] LABS: Calcium 9.3 MG/DL (8.5-10.1); Magnesium 2.5 MG/DL (1.8-2.4); Osmolality,Calculated 282.3 MOS/KG (273-304); Potassium 4.3 MMOL/L (3.5-5.1)
[2016-09-13] MEDS: ASPIRIN EC 81 MG TABLET PO SCH (09:38)
[2016-09-13] MEDS: CLOPIDOGREL 75 MG TABLET PO SCH (09:38)
[2016-09-13] MEDS: CITALOPRAM 20 MG TABLET PO SCH (09:38)
[2016-09-13] MEDS: PANTOPRAZOLE 40 MG TABLET PO SCH (09:38)
[2016-09-13] MEDS: VERAPAMIL SR 240 MG TABLET PO SCH (09:39)
[2016-09-13] MEDS: metFORMIN 500 MG TABLET PO SCH (09:39)
[2016-09-13] MEDS: CLORAZEPATE 7.5 MG TABLET PO SCH (09:39)
[2016-09-13] MEDS: HYOSCYAMINE 0.125 MG TABLET SL SCH (09:40)
[2016-09-13] MEDS: VALSARTAN/HCTZ 80-12.5 MG TABLET PO SCH (09:40)
[2016-09-13 12:12] VITALS: BP 142/81
--- NOTE | 2016-09-13 13:41 | Discharge Summary ---
Hospital Course - Hospital Course Hospital Course: The patient was admitted for ongoing 8/10 chest pain but no EKG changes. After many hours of pain his enzymes remain negative. It was was it was apparent this is not CAD/ACS. Per the nurse practitioner, the patient had 3 caths in the last 6 months. He also had some treadmills. The thought of this possibly muscle skeletal was considered. Dr. Clay was consulted. He did trigger point injection of an intercostal nerve block of the left rib area.. It dramatically help the pain. It is 90% better. He can live with it. Also, Dr. Olivera did an E scope. He was found to have an ulcer, possibly due to NSAIDs.. I discussed with the patient about avoiding NSAIDs and he plans to try to do so. Dr. Olivera increased his Protonix to twice daily, so we will continue it. I giving a trial of hyoscyamine for possible esophageal spasm, but he seemed to be better with the injection of Dr. Mcneill, so I will not give it to him long-term, as there may be a significant expense for it. it could be retried later if needed particularly since his pain is better. He had been taking some NSAIDs for his pain. Biopsies were taken. A report is to be called to the patient if they are positive for Helicobacter. He is up and about and doing well and ready to be discharged to home. Diagnosis - Discharge Diagnosis (1) Acute chest pain Status: Acute (2) Chest pain Status: Acute (3) Leukocytosis, unspecified Status: Acute (4) Anxiety Status: Chronic (5) CAD (coronary artery disease) Status: Chronic (6) Dyslipidemia Status: Chronic (7) Hypertension Status: Chronic (8) Tobacco abuse Status: Chronic (9) Anxiety Status: Chronic (10) Depression Status: Chronic (11) Drug-seeking behavior Status: Acute (12) Intercostal myalgia Status: Acute (13) Gastric ulcer Status: Acute Specialty Discharge - Follow Up or Referrals Follow up with: Cyn Simon MD [Physician] - (His is scheduled , some time about October 14, 2016, per the patient.) Stephane Mcneill MD [Physician] - (As needed) Carloz Olivera MD [Physician] - (As needed) Discharge Plan - Discharge Data Disposition: Disch To Home/Self Care Condition at Discharge: Stable Discharge Diet: heart healthy, low fat, low cholesterol Activity: no lifting (over 10 pounds or straining of the upper body for the next 2 weeks--to allow the upper body/chest wall where the pain was coming from to heal.. ), other Hygiene: no restrictions Weight Bearing at Discharge: full weight bearing Driving: not for (5 days-to allow to minimize upper body strain) - Discharge Medications New Pantoprazole Tab [Protonix Tab] 40 mg PO BID #60 tablet Continue Aspirin EC Tab 81 mg PO DAILY tablet Nitroglycerin Sl Tab [Nitrostat] 0.4 mg SL Q5M PRN #20 tablet PRN Reason: Chest Pain Rosuvastatin Calcium [Crestor] 40 mg PO BEDTIME Valsartan/Hydrochlorothiazide [Valsartan-Hctz 160-25 mg Tab] 1 each PO QAM Clopidogrel [Plavix] 75 mg PO DAILY #30 tablet Amitriptyline HCl 75 mg PO BEDTIME Citalopram [CeleXA] 20 mg PO QAM Isosorbide Mononitrate [Imdur] 120 mg PO BEDTIME #30 tablet fluPHENAZine [Prolixin] 1 mg PO BID Verapamil HCl [Verapamil ER Cap] 240 mg PO DAILY Pantoprazole Tab [Protonix Tab] 40 mg PO BEDTIME #30 caplet metFORMIN [Glucophage] 500 mg PO DAILY Clorazepate [Tranxene] 7.5 mg PO BID - Follow Up or Referral - Forms/Instructions Instructions: Acute Coronary Syndrome Exam - Constitutional Vitals: Period Temp Pulse Resp BP Sys/Zhong Pulse Ox Last 24 Hr 96.9 F-98.6 F 75-90 14-20 113-142/65-82 91-95 Exam: HEENT: Pupils equal, reactive to light and accommodation Neck: NoJVD or bruit Lungs clear to auscultation Heart: Regular rhythm rate with normal S1 and S2. Apical S4 Abdomen: No hepatosplenomegaly Spine/extremities: No clubbing, cyanosis, or edema Neuro: Nonfocal Psych: No depression or anxiety No chest wall pain. Discharge Results Labs on day of discharge: Labs from last 24 hours 09/13/16 09/13/16 09/12/16 03:58 03:58 Unknown WBC 12.9 H RBC 4.98 Hgb 15.3 Hct 44.7 MCV 89.8 MCH 31 MCHC 34.2 RDW 13.1 Plt Count 303 MPV 9.6 Neut % (Auto) 77.3 H Lymph % (Auto) 15.7 L Garrard % (Auto) 5.7 Eos % (Auto) 0.2 Baso % (Auto) 0.4 Neut # (Auto) 10.0 H Lymph # (Auto) 2.0 Garrard # (Auto) 0.7 Eos # (Auto) 0.0 Baso # (Auto) 0.1 Immature Gran % 0.7 Nucleated RBC % 0.0 Immature Gran # 0.09 Nucleated RBCs # 0.00 Sodium 141 Potassium 4.3 Chloride 105 Carbon Dioxide 26 Anion Gap 14.3 BUN 14 Creatinine 0.90 GFR Calculation 130 BUN/Creatinine Ratio 15.00 Glucose 108 H Calculated Osmolality 282.3 Calcium 9.3 Magnesium 2.5 H Urine Opiates Screen Positive H Ur Barbiturates Screen Negative Ur Phencyclidine Scrn Negative U Amphetamine/Methamph Negative U Benzodiazepines Scrn Positive H U Cocaine Metab Screen Negative U Cannabinoids Screen Negative DS: Provider Date of admission: 09/11/16 19:15 Primary care physician: Charis Elmore MD Attending physician on admission: Beckie Leone DO Consults: 09/11/16 19:53 Consult to Pharmacy [CONS] Routine Reason for Pharmacy Consult: Adjust Meds Renal Funct 09/12/16 11:05 Consult to Physician [CONS] Routine Comment: recurrent noncardiac chest pain, pt wants narcotic Consulting Provider: Stephane Mcneill Consult to Specialist Group: Pain Management Person Notified: DONNIE Date Notified: 09/12/16 Time Notified: 11:15 Consult Notification Comment: Discharging clinician: Damián Thayer MD
--- NOTE | 2016-09-15 11:24 | Pathology Report from [facility] ---
ACCESSION # : [id number] PATIENT NAME : Behzad Diallo ORDERING DR : AYAZ BRAR MD CLINICAL HX: Chest pain POST-OP DX: Same SPECIMEN INFO: Gastric biopsy GROSS DESCRIPTION: The specimen is received in formalin labeled with the patient 's name Behzad Diallo consists of two back tissue fragments measuring 0.5 x 0.4 cm collectively. Submitted in one cassette. DIAGNOSIS FOR BEHZAD DIALLO: STOMACH BIOPSY: Chronic gastritis. No evidence of malignancy. Special stain for H.pylori like organisms is negative. SERVICE DATE: 09/12/2016 REPORT DATE: 09/15/2016 PATHOLOGIST: Chris Henriquez III, M.D. MTDD
== END 2016-09-13 14:45 | disposition home or self-care (01) | DRG 313 ==
LOC: N.ED 17:49 → N.EDINP 19:15 → N.TELEN 20:03
PROVIDERS: ADMIT Internal Medicine Cardiovascular Disease; ATTEND Internal Medicine Cardiovascular Disease

== ENCOUNTER 2016-11-02 18:46 | Inpatient (IN) ==
[2016-11-02] MEDS ORDERED: MORPHINE 2 MG/1 ML SYRINGE IV STA (19:08)
[2016-11-02] MEDS ORDERED: NITROGLYCERIN SL 0.4 MG TABLET SL PRN ×2 (19:08→22:11)
[2016-11-02] MEDS ORDERED: METOPROLOL TARTRATE 25 MG TABLET PO STA (19:08)
[2016-11-02] MEDS ORDERED: ASPIRIN 325 MG TABLET PO STA (19:08)
[2016-11-02] MEDS ORDERED: ALUM/MAG/SIMETH/LIDO VISC 1:1 30 ML BOTTLE PO STA (19:08)
[2016-11-02] MEDS ORDERED: ONDANSETRON 4 MG/2 ML VIAL IV STA (19:08)
[2016-11-02] MEDS ORDERED: ONDANSETRON 4 MG/2 ML VIAL ONE (19:26)
[2016-11-02] MEDS ORDERED: METOPROLOL TARTRATE 25 MG TABLET ONE (19:26)
[2016-11-02] MEDS ORDERED: MORPHINE 2 MG/1 ML SYRINGE ONE (19:26)
[2016-11-02] MEDS ORDERED: ALUM/MAG/SIMETH/LIDO VISC 1:1 30 ML BOTTLE PO ONE (19:27)
[2016-11-02] MEDS ORDERED: NITROGLYCERIN SL 0.4 MG TABLET SL ONE (19:27)
[2016-11-02 19:29] LABS: Basophils # 0.1 10*3/uL (0.0-0.2); Basophils % 0.8 % (0.0-0.8); Eosinophils # 0.2 10*3/uL (0.0-0.87); Eosinophils % 1.3 % (0.00-10.9); Hemoglobin 15.1 GM/DL (14.0-18.0); Immature Granulocytes % 0.5 %; Immature Granulocytes Absolute 0.06 #; Lymphocytes # 3.4 10*3/uL (1.4-4.0); Mean Corpuscular HGB Conc 35.1 GM/DL (32-36); Mean Corpuscular Hemoglobin 32 PG (27-34); Mean Corpuscular Volume 90.5 FL (87-102); Mean Platelet Volume 9.1 FL (9.6-12.0); Monocytes # 0.9 10*3/uL (0.11-0.8); Monocytes % 6.5 % (1.7-12.7); Neutrophils # 8.4 10*3/uL (1.4-7.4); Neutrophils % 64.9 % (38.7-73.9); Platelet Count 276 T/CUMM (130-400); Red Blood Count 4.75 MC/CUMM (3.8-5.5); Red Cell Distribution Width 13.2 % (9.3-17.3)
[2016-11-02 19:39] LABS: PT Patient Result 10.4 SECS
--- NOTE | 2016-11-02 19:40 | Emergency Department Note ---
Kevan Denson Brooke, am scribing for, and in the presence of, Pierre López MD 19 :14. Rene Denson Charles R, MD, personally performed the services described in this documentation, ascribed by Lucrecia Mathur in my presence, and it is both accurate and complete [id number] . Arrival - Arrival Chief Complaint: Chest Pain ED Nursing Triage Note: Pt arrrives via ems from home with complaints of chest pain that started today at 1200. States that pain worsened throughout day. Complains of some nausea and sob with pain. Pt also complains of headache at time of triage. Pt states that pain is 6/10 at time of triage and that pain was radiating to left shoulder earlier. Mode of Arrival: Stretcher Limitations: No Limitations Source: Patient, RN Notes Reviewed Time Seen by Provider: 11/02/16 19:05 - History of Present Illness HPI Narrative: Patient is a 46 year old male who was brought into the ED by EMS with c/o chest pain that started around 1200 today. Patient says the pain is located on the left side of his chest. The pain radiates into his left shoulder, left side of neck, and through to his back. He says the pain is intermittent and that he was "just sitting" when the pain started. He did take a Nitro and says it helped relieve the pain some. Patient says the pain is not worsened with movement but "holding my breath" makes the pain better. Patient also complains of shortness of breath and nausea. 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 He had five stents placed in 2014. 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 Simon. He also has PMHx of HTN , CAD, anxiety, depression, NIDDM, dyslipidemia, COPD, and bilateral shoulder problems. Onset (ago): hour(s) (7) Allergies/Adverse Reactions: Allergies Allergy/AdvReac Type Severity Reaction Status Date / Time No Known Allergies Allergy Verified 09/11/16 17:55 Home Medications: Home Medications Medication Instructions Recorded Confirmed Type Aspirin EC Tab 81 mg PO DAILY tablet 10/25/14 11/02/16 Rx Nitroglycerin Sl Tab [Nitrostat] 0.4 mg SL Q5M PRN #20 tablet 10/25/14 11/02/16 Rx Rosuvastatin Calcium [Crestor] 40 mg PO BEDTIME 03/24/16 11/02/16 History Valsartan/Hydrochlorothiazide 1 each PO QAM 03/25/16 11/02/16 History [Valsartan-Hctz 160-25 mg Tab] Clopidogrel [Plavix] 75 mg PO DAILY #30 tablet 03/26/16 11/02/16 Rx Amitriptyline HCl 75 mg PO BEDTIME 07/03/16 11/02/16 History Citalopram [CeleXA] 20 mg PO QAM 07/03/16 11/02/16 History Isosorbide Mononitrate [Imdur] 120 mg PO BEDTIME #30 tablet 07/04/16 11/02/16 Rx Clorazepate [Tranxene] 7.5 mg PO BID 08/18/16 11/02/16 History Verapamil HCl [Verapamil ER Cap] 240 mg PO DAILY 08/18/16 11/02/16 History fluPHENAZine [Prolixin] 1 mg PO BID 08/18/16 11/02/16 History metFORMIN [Glucophage] 500 mg PO DAILY 08/31/16 11/02/16 History Pantoprazole Tab [Protonix Tab] 40 mg PO BID #60 tablet 09/13/16 11/02/16 Rx Review of System - Review of System 12 point system: reviewed and no additional remarkable complaints except as stated - Review of System Constitutional: Absent: fever Respiratory: Present: other (Shortness of breath). Absent: respiratory distress Cardiovascular: Present: chest pain (left side) Gastrointestinal: Present: nausea Musculoskeletal: Present: back pain (radiating through from chest), neck pain ( left side radiating from chest), other (left shoulder pain radiating from chest) Skin: Absent: rash Medical,Surgical,& Family Hx - Medical History Cardio: History of: CAD, Hypertension, [place] (x3) Psychological: History of: Anxiety Disorders, Depression Neurology: No history of: Brain Aneurysm, Cerebral Hemorrhage, Cerebrovascular Accident , Cerebral Palsy, Dementia, Migraine, Multiple Sclerosis, Parkinson's Disease, Peripheral Neuropathy, Seizures, TIA, Vertigo, Neurologocal Cancer Endocrine: History of: Diabetes Mellitus (NIDDM), Dyslipidemia Respiratory: History of: COPD Musculoskeletal: History of: Musculoskeletal Problems (right and left shoulder problems) - Surgical History Cardiac Surgeries: Sugical HX of: Cardiac Catheterization (with stents APR 05. X5) Patient Denies: Carotid Endarterectomy Thoracic Surgeries: Patient denies;: Organ Transplant, Lobectomy Neurologic Surgeries: Patient denies: Brain Aneurysm, Cerebral Hemorrhage, Neurologic Surgery HEENT Surgeries: Patient denies: Carotid Endarterectomy, Eye Surgery, Tonsilectomy & Adenoidectomy Orthopedic Surgeries: Surgical HX of;: Orthopedic Surgery (bilateral shoulder surgery. His left shoulder surgery now with) - Family History Family History: Reports;: Family Heart Disease (father at age 69 and had coronary stents), Family Hypertension (father) - Social History Smoking Status: Current every day smoker Frequency of Alcohol Use: None Type of Drug Use: None Exam Vital Signs: Vital Signs Temperature 98.0 F 11/02/16 18:46 Pulse Rate 91 H 11/02/16 18:46 Respiratory Rate 18 11/02/16 19:05 Blood Pressure 118/93 11/02/16 18:46 O2 Sat by Pulse Oximetry 97 11/02/16 18:46 - General General appearance: alert, in no apparent distress, anxious - Head Head exam: Present: atraumatic, normocephalic - Eye Eye exam: Present: normal appearance, PERRL, EOMI - ENT ENT exam: Present: normal exam - Neck Neck exam: Present: normal inspection - Chest Chest inspection: Present: normal inspection, symmetric chest wall rise - Respiratory Respiratory exam: Present: normal lung sounds bilaterally - Cardiovascular Cardiovascular exam: Present: regular rate, normal rhythm, normal heart sounds - Abdominal Exam Abdominal exam: Present: soft. Absent: distention, tenderness - Extremities Exam Extremities exam: Present: normal inspection - Back Exam Back exam: Present: normal inspection - Neurological Exam Neurological exam: Present: alert, oriented X3 - Psychiatric Psychiatric exam: Present: normal affect, normal mood - Skin Skin exam: Present: warm, dry, intact, normal color Course - Consultations Consultation #1: Dr. Kaba will admit patient Time: 20:35 Results - Labs CBC & BMP: 11/02/16 19:26 11/02/16 19:26 Lab Results: I have reviewed the patients labs Labs: Laboratory Tests 11/02/16 19:26 WBC 13.0 H MPV 9.1 L Neut # (Auto) 8.4 H [place] # (Auto) 0.9 H Laboratory Tests 11/02/16 19:26 INR 1.0 PT Patient/Control Mix 10.4 Laboratory Tests 11/02/16 19:26 Albumin/Globulin Ratio 1.0 L - Diagnostic Findings Procedure: Chest x-ray: report reviewed by me (No acute cardiopulmonary disease. ) Critical Care Time Critical Care Time: Yes Total Critical Care Time: 60 Disposition Clinical Impression: Anxiety, Unstable angina pectoris, CAD (coronary artery disease), Chest pain Case discussed with: patient, patient's family Disposition: Still a Patient Condition: Stable Time of Disposition: 20:35
--- NOTE | 2016-11-02 19:54 | XRay Report ---
XR chest 1V portable Indication: Chest pain Comparison: 11 September 2016 Findings: The heart and mediastinum are normal in size and configuration. The pulmonary vascularity is normal in caliber. No lung infiltrates, effusions, pneumothorax or other abnormality is demonstrated. Impression: No acute no acute cardiopulmonary disease. PROCEDURE INTERPRETED AT [facility] DEPARTMENT OF RADIOLOGY Final Report Signed by: Dr. King Vega
[2016-11-02 20:10] LABS: Alanine Aminotransferase 19 U/L (16-61); Albumin 3.8 G/DL (3.4-5.0); Alkaline Phosphatase 95 U/L (45-117); Aspartate Amino Transferase 13 U/L (0-37); Bilirubin,Total < 0.39 MG/DL (0.2-1.0); Blood Urea Nitrogen 10 MG/DL (7-18); Calcium 8.6 MG/DL (8.5-10.1); Glucose 102 MG/DL (74-106); Osmolality,Calculated 275.5 MOS/KG (273-304); Potassium 3.5 MMOL/L (3.5-5.1); Sodium 139 MMOL/L (136-145); Total Protein 7.3 G/DL (6.4-8.3)
[2016-11-02 20:18] LABS: Magnesium 2.2 MG/DL (1.8-2.4)
[2016-11-02 21:23] LABS: Apearance,Urine CLEAR (Clear); Bilirubin,Urine Negative (Negative); Blood, Urine Negative (Negative); Glucose,Urine (UA) Negative (Negative); Ketones,Urine Negative (Negative); Mucus,Urine Occasional /LPF (Occasional); Nitrite,Urine Negative (Negative); Protein,Urine Negative; RBC,Urine 1 /HPF (0-4); Urine Color Yellow (Yellow); Urine Specific Gravity 1.014 (1.001-1.035); Urine Urobilinogen < 2.0 EU/DL (0.2-1.0); WBC,Urine <1 /HPF (0-6)
[2016-11-02 21:31] LABS: Barbiturates Screen,Urine Negative (Negative); Benzodiazepines Screen,Urine Negative (Negative); Cannabinoid Screen,Urine Negative (Negative); Opiate Screen,Urine Positive (Negative); Phencyclidine Screen,Urine Negative (Negative)
[2016-11-02] MEDS ORDERED: AMITRIPTYLINE 50 MG TABLET PO SCH (22:11)
[2016-11-02] MEDS ORDERED: DEXTROSE 50% 25 GM/50 ML VIAL IV PRN (22:11)
[2016-11-02] MEDS ORDERED: POTASSIUM CHLORIDE 20 MEQ TABLET PO PRN (22:11)
[2016-11-02] MEDS ORDERED: MAGNESIUM SULF RIDER 4 GM in PREMIX 1 EACH IV PRN (22:11)
[2016-11-02] MEDS ORDERED: GLUCAGON 1 MG VIAL IM PRN (22:11)
[2016-11-02] MEDS ORDERED: ISOSORBIDE MONONITRATE 60 MG TABLET PO SCH (22:11)
[2016-11-02] MEDS ORDERED: ROSUVASTATIN 20 MG TABLET PO SCH (22:11)
[2016-11-02] MEDS ORDERED: MORPHINE 2 MG/1 ML SYRINGE IV PRN (22:11)
[2016-11-02] MEDS ORDERED: ONDANSETRON 4 MG/2 ML VIAL IV PRN (22:11)
[2016-11-02] MEDS ORDERED: MAGNESIUM SULF RIDER 2 GM in PREMIX 1 EACH IV PRN (22:11)
[2016-11-02] MEDS: PANTOPRAZOLE 40 MG TABLET PO SCH (23:22)
[2016-11-02] MEDS: CLORAZEPATE 7.5 MG TABLET PO SCH (23:23)
[2016-11-02] MEDS: ENOXAPARIN 100 MG/ML SYRINGE SUBCUT SCH (23:29)
[2016-11-02] MEDS: SODIUM CHLORIDE 0.9% 1,000 ML IV SCH (23:33)
[2016-11-02] MEDS: INSULIN REGULAR 100 UNIT/ML SUBCUT SCH (23:38)
[2016-11-03] MEDS: NITROGLYCERIN 2% OINT 1 INCH/GM PACK TOP SCH ×3 (00:48→13:24)
[2016-11-03 01:19] LABS: Basophils # 0.1 10*3/uL (0.0-0.2); Basophils % 0.8 % (0.0-0.8); Eosinophils # 0.2 10*3/uL (0.0-0.87); Eosinophils % 1.4 % (0.00-10.9); Hematocrit 42.3 VOL% (42.0-52.0); Hemoglobin 14.6 GM/DL (14.0-18.0); Immature Granulocytes % 0.8 %; Immature Granulocytes Absolute 0.09 #; Lymphocytes # 3.9 10*3/uL (1.4-4.0); Lymphocytes % 32.6 % (21.2-54.2); Mean Corpuscular HGB Conc 34.5 GM/DL (32-36); Mean Corpuscular Hemoglobin 32 PG (27-34); Mean Corpuscular Volume 91.2 FL (87-102); Mean Platelet Volume 9.1 FL (9.6-12.0); Monocytes # 0.9 10*3/uL (0.11-0.8); Monocytes % 7.4 % (1.7-12.7); Neutrophils # 6.8 10*3/uL (1.4-7.4); Platelet Count 285 T/CUMM (130-400); Red Blood Count 4.64 MC/CUMM (3.8-5.5); Red Cell Distribution Width 13.3 % (9.3-17.3); White Blood Count 11.8 T/CUMM (4-12)
[2016-11-03 01:57] LABS: Alanine Aminotransferase 24 U/L (16-61); Albumin 3.6 G/DL (3.4-5.0); Alkaline Phosphatase 89 U/L (45-117); Aspartate Amino Transferase 16 U/L (0-37); Bilirubin,Total < 0.39 MG/DL (0.2-1.0); Blood Urea Nitrogen 11 MG/DL (7-18); Calcium 8.6 MG/DL (8.5-10.1); Cholesterol 121 MG/DL (50-200); Glucose 132 MG/DL (74-106); HDL Cholesterol 34 MG/DL (40-60); Magnesium 2.3 MG/DL (1.8-2.4); Osmolality,Calculated 277.5 MOS/KG (273-304); Potassium 3.4 MMOL/L (3.5-5.1); Risk Ratio 3.56; Sodium 139 MMOL/L (136-145); Total Protein 6.6 G/DL (6.4-8.3); Triglycerides 507 MG/DL (2-150); VLDL CHOLESTEROL 101.4 MG/DL
--- NOTE | 2016-11-03 07:26 | EKG Report ---
Stationary ECG Study [facility] ER Test Date: 11/02/2016 6:56:12 PM Pat Name: STEPHAN DIALLO Department: Room: 280 Gender: M Qa Reviewer: CORNELIA : 1970 Requested by: Pierre Perez Order Number: [id number] Reading MD: BRIGIDO SANTO Intervals [place] Rate: 82 P: 50 NC: 152 QRS: 61 QRSD: 82 T: 57 QT: 342 QTc: 381 Interpretive Statements SINUS RHYTHM Electronically Signed On 11-03-16 16:52:08 CDT by BRIGIDO SANTO [email or web address]
--- NOTE | 2016-11-03 07:36 | EKG Report ---
Stationary ECG Study [facility] Test Date: 11/02/2016 11:19:13 PM Pat Name: STEPHAN DIALLO Department: Room: 280 Gender: M Benefits Coordinator: : 1970 Requested by: Pierre Perez Order Number: [id number] Reading MD: BRIGIDO SANTO Intervals [place] Rate: 65 P: 57 CO: 175 QRS: 63 QRSD: 85 T: 64 QT: 383 QTc: 394 Interpretive Statements SINUS RHYTHM Electronically Signed On 11-03-16 16:55:38 CDT by BRIGIDO SANTO [email or web address]
--- NOTE | 2016-11-03 07:37 | EKG Report ---
Stationary ECG Study [facility] Test Date: 11/03/2016 3:15:25 AM Pat Name: STEPHAN DIALLO Department: Room: 280 Gender: M Block Splitter Operator: : 1970 Requested by: Pierre Perez Order Number: [id number] Kasey MD: BIRGIDO SANTO Intervals [place] Rate: 65 P: 55 [place]: 163 QRS: 64 QRSD: 83 T: 64 QT: 402 QTc: 414 Interpretive Statements SINUS RHYTHM WITH SINUS ARRHYTHMIA Electronically Signed On 11-03-16 16:57:03 CDT by BRIGIDO SANTO [email or web address]
--- NOTE | 2016-11-03 08:56 | XRay Report ---
Portable chest Date: 11/03/2016 Clinical history: Shortness of breath Comparison: 11/02/2016 Technique: Portable AP sitting chest Findings: The heart is borderline in size with coronary artery calcifications/stents. Chronic scarring in the lungs is minimal atelectasis at the lung bases. Stable mediastinum and osseous structures. Impression: Chronic scarring in the lungs with minimal atelectasis at the lung bases. Coronary artery calcifications/stents. PROCEDURE INTERPRETED AT [facility] DEPARTMENT OF RADIOLOGY Final Report Signed by: Dr. Dana Maya
[2016-11-03] MEDS ORDERED: PANTOPRAZOLE 40 MG TABLET PO SCH (09:00)
[2016-11-03] MEDS ORDERED: ASPIRIN EC 81 MG TABLET PO SCH (09:00)
[2016-11-03] MEDS ORDERED: metFORMIN 500 MG TABLET PO SCH (09:00)
--- NOTE | 2016-11-03 09:29 | Cardiology History & Physical ---
Assessment and Plan - Time spent with patient Time spent with patient: Greater than 30 minutes (due to assessment, plan, and documentation) Time spent discussing smoking cessation with patient: 3 to 10 minutes (1) Chest pain Status: Acute Assessment and plan: SEE PLAN OF CARE LISTED BELOW. Current Visit: Yes (2) CAD (coronary artery disease) Status: Chronic Assessment and plan: SEE PLAN OF CARE LISTED BELOW. Current Visit: Yes (3) Anxiety Status: Chronic Assessment and plan: SEE PLAN OF CARE LISTED BELOW. Current Visit: Yes (4) Dyslipidemia Status: Chronic Assessment and plan: SEE PLAN OF CARE LISTED BELOW. Current Visit: No (5) Leukocytosis, unspecified Status: Chronic Assessment and plan: SEE PLAN OF CARE LISTED BELOW. Current Visit: No (6) Depression Status: Chronic Assessment and plan: SEE PLAN OF CARE LISTED BELOW. Current Visit: No (7) Tobacco abuse Status: Chronic Assessment and plan: SEE PLAN OF CARE LISTED BELOW. Current Visit: No (8) Drug-seeking behavior Problem details: The patient was requesting narcotics to help with his pain. I am referring him to the pain doctor Status: Chronic Assessment and plan: SEE PLAN OF CARE LISTED BELOW. Current Visit: No (9) Intercostal myalgia Status: Acute Assessment and plan: SEE PLAN OF CARE LISTED BELOW. Current Visit: No (10) Gastric ulcer Status: Acute Assessment and plan: SEE PLAN OF CARE LISTED BELOW. Current Visit: No History of Present Illness Chief complaint: chest pain History of present illness: PRODUCT GRADER: DR. SIMON Mr. King is a 46 year old male who is routinely followed by Dr. Simon. He has a history of coronary artery disease, status post stenting of the LAD and RCA in 2014. He has had recurrent chest pain since and has had 3 subsequent catheterizations since his stent placement which have revealed no new obstructive disease with widely patent stents in the left anterior descending and right coronary arteries. Last heart catheterization was July 03, 2016. He also has a history of hyperlipidemia, hypertension, depression, anxiety, abnormal chest CT with enlarged lymph nodes (follow-up was done July 2015 and this was stable). He continues to smoke 10 cigarettes per day, 2 more than he previously reportedly smoked. He denies alcohol or drug use. 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 He presented to the emergency room yesterday evening with complaints of chest pain. He reports since his previous admission approximately 6 weeks ago, he had been in his usual state of health until yesterday. At approximately 1200, he reports he developed chest discomfort of 10/10 intensity. He describes it as being the same as his previous pain, only "twice as bad." He previously has described this pain as a pressure and squeezing sensation which started in his mid chest and radiated into his left arm, left neck, and now reports it wrapped around to his back. It was not precipitated by exertion. He took a sublingual nitroglycerin and had some mild relief of his symptoms. He tells me he has not had recurrent pain since being admitted. He had associated symptoms of nausea, shortness of breath, and diaphoresis. He denies recent fever, chills, painful inspiration, dizziness, lightheadedness, syncope, palpitations, or bilateral lower extremity edema. He also complains of blurry vision and a headache. He has been hospitalized 4 times since June with complaints of chest pain. The most recent admission was from 09/12/16-09/13/16 during which he was seen by GI and Pain treatment. He was given a trigger point injection of an intercostal nerve block of the left rib area which dramatically helped his pain. He also underwent an EGD and was found to have an ulcer thought to be due to NSAIDS and his Protonix was increased to BID. On August 11, 2016 he underwent exercise Cardiolite scan which was transitioned to the Lexiscan protocol. He was found to have a gated ejection fraction of 66%, no good evidence to suggest significant ischemia or scar, normal left ventricular systolic wall motion. He has also been followed by Dr. Garcia, psychiatrist for help in managing his psych issues; he has been given medicines to "calm his nerves" but his reports "these do not stop his pain from occurring." Dr. Rosen to follow with further plan and addendum. ASSESSMENT/PLAN: 1. Chest pain - Patient has had 3 sets of negative troponins and no acute EKG changes. 2. Coronary artery disease - He has a history of intracoronary stents with no objective evidence of any issue related to coronary ischemia. He's undergone stress testing which demonstrates no evidence of significant perfusion abnormality by nuclear study. He recently had cardiac catheterization 07/03/16 which was negative for evidence of occlusive CAD. 3. Anxiety - Continue anti-anxiety medication. 4. Dyslipidemia - Continue statin. Triglycerides 507. Patient admits to eating lots of fried foods and not exercising frequently. I have encouraged him to change his lifestyle and to avoid fried foots and get 30 minutes of moderate intensity activity 5 days per week without skipping 2 days in a row. 5. Leukocytosis - This is recurrent. On his admission August 31, 2016 he had a white count of 16.6, prior to that during his admission in July he had an elevated white count of 18.1. Each time he has had no signs of sepsis. We will continue to monitor. 6. Depression - Continue antidepressant. 7. Tobacco abuse - Patient has been educated on the harmful effects of tobacco abuse. He currently smokes 10 cigarettes per day, 2 more than he previously reportedly smoked, and reports he has significantly cut down from what he used to smoke. He was encouraged to work towards a goal of complete cessation. 8. Drug-seeking behavior - Patient's pain is typically only relieved by narcotics. During previous admission, he had an angry outburst where he cursed the nurses upon learning his morphine had been discontinued. He now returns with complaints of similar pain, "only worse." 9. Intercostal myalgia - He was seen approximately 6 weeks ago during hospitalization and received injection for this. He was instructed by Dr. Mcneill to follow up with Dr. Oglesby but Mr. King tells me he never followed up. 10. Gastric ulcer - Found during previous admission by Dr. Olivera. Continue Protonix BID. Home Medications Medication Instructions Recorded Confirmed Type Aspirin EC Tab 81 mg PO DAILY tablet 10/25/14 11/02/16 Rx Nitroglycerin Sl Tab [Nitrostat] 0.4 mg SL Q5M PRN #20 tablet 10/25/14 11/02/16 Rx Rosuvastatin Calcium [Crestor] 40 mg PO BEDTIME 03/24/16 11/02/16 History Valsartan/Hydrochlorothiazide 1 each PO QAM 03/25/16 11/02/16 History [Valsartan-Hctz 160-25 mg Tab] Clopidogrel [Plavix] 75 mg PO DAILY #30 tablet 03/26/16 11/02/16 Rx Amitriptyline HCl 75 mg PO BEDTIME 07/03/16 11/02/16 History Citalopram [CeleXA] 20 mg PO QAM 07/03/16 11/02/16 History Isosorbide Mononitrate [Imdur] 120 mg PO BEDTIME #30 tablet 07/04/16 11/02/16 Rx Clorazepate [Tranxene] 7.5 mg PO BID 08/18/16 11/02/16 History Verapamil HCl [Verapamil ER Cap] 240 mg PO DAILY 08/18/16 11/02/16 History fluPHENAZine [Prolixin] 1 mg PO BID 08/18/16 11/02/16 History metFORMIN [Glucophage] 500 mg PO DAILY 08/31/16 11/02/16 History Pantoprazole Tab [Protonix Tab] 40 mg PO BID #60 tablet 09/13/16 11/02/16 Rx Allergies Allergy/AdvReac Type Severity Reaction Status Date / Time No Known Allergies Allergy Verified 09/11/16 17:55 Review of systems: - Constitutional: Present: As per HPI. Absent: anorexia, chills, daytime sleepiness, excessive sweating, fever(s), frequent falls, headache(s), increased appetite, lethargy, malaise, night sweats, stops breathing during sleep, weakness, weight gain, weight loss, fatigue. - EENT Eyes: Present: blurry vision, As per HPI. Absent: diplopia, loss of vision Ears: Present: As per HPI. Absent: decreased hearing, ear discharge, ear pain Nose, mouth and throat: Present: As per HPI. Absent: dysphagia, epistaxis, headache(s), hoarseness, lip swelling, nasal congestion, neck mass, neck pain, sinus pressure, sore throat, throat swelling, tongue swelling, vertigo - Cardiovascular: Present: chest pain at rest, dyspnea, radiating jaw, neck or arm pain, as per HPI. Absent: chest pain with activity, dyspnea on exertion, edema, claudication, diaphoresis, lightheadedness, orthopnea, palpitations, PND - Respiratory: Present: dyspnea, as per HPI. Absent: dyspnea on exertion, cough , hemoptysis, wheezing, snoring, pain on inspiration - Gastrointestinal: Present: nausea, As per HPI. Absent: abdominal pain, bloating, change in bowel habits, constipation, diarrhea, heartburn, hematemesis , hematochezia, loose stools, melena, vomiting - Genitourinary: Present: As per HPI. Absent: difficulty urinating, dysuria, flank pain, hematuria, nocturia, urinary frequency, urinary incontinence - Musculoskeletal: Present: back pain, As per HPI. Absent: arthralgias, joint swelling, limited range of motion, muscle cramps, muscle weakness, myalgias - Neurological: Present: headache(s), As per HPI. Absent: abnormal gait, abnormal speech, behavioral changes, confusion, convulsions, disequilibrium, dizziness, focal weakness, frequent falls, memory loss, numbness, paresthesias, radicular pain, syncope, tremor(s) - Psychiatric: Present: history of depression, anxiety, As per HPI. Absent: confusion, panic attacks - Endocrine: Present: As per HPI. Absent: cold intolerance, fatigue, heat intolerance, polydipsia, polyphagia - Hematologic/Lymphatic: Present:easy bruising, As per HPI. Absent: easy bleeding, lymphadenopathy Medical,Surgical,& Family Hx - Medical History Cardio: History of: CAD, Hypertension, [place] (x3) Psychological: History of: Anxiety Disorders, Depression Neurology: No history of: Brain Aneurysm, Cerebral Hemorrhage, Cerebrovascular Accident , Cerebral Palsy, Dementia, Migraine, Multiple Sclerosis, Parkinson's Disease, Peripheral Neuropathy, Seizures, TIA, Vertigo, Neurologocal Cancer Endocrine: History of: Diabetes Mellitus (NIDDM), Dyslipidemia Respiratory: History of: COPD Musculoskeletal: History of: Musculoskeletal Problems (right and left shoulder problems) - Surgical History Cardiac Surgeries: Sugical HX of: Cardiac Catheterization (with stents MAR 15. X5) Patient Denies: Carotid Endarterectomy Thoracic Surgeries: Patient denies;: Organ Transplant, Lobectomy Neurologic Surgeries: Patient denies: Brain Aneurysm, Cerebral Hemorrhage, Neurologic Surgery HEENT Surgeries: Patient denies: Carotid Endarterectomy, Eye Surgery, Tonsilectomy & Adenoidectomy Orthopedic Surgeries: Surgical HX of;: Orthopedic Surgery (bilateral shoulder surgery. His left shoulder surgery now with) - Family History Family History: Reports;: Family Heart Disease (father at age 69 and had coronary stents), Family Hypertension (father) - Social History Smoking Status: Current every day smoker Frequency of Alcohol Use: None Type of Drug Use: None Marital Status: Lives With:: Spouse Functional capacity: independent ambulation Cardiology Physical Exam - Constitutional Vitals: Vital Signs Temp Pulse Resp BP Pulse Ox 97.9 F 80 16 121/71 94 L 11/03/16 08:00 11/03/16 08:00 11/03/16 08:00 11/03/16 08:00 11/03/16 04:00 Intake and Output 11/02/16 11/03/16 11/03/16 22:59 06:59 14:59 Output Total 400 / 400 Balance -400 / -400 Output: Urine 400 / 400 Other: Weight 230 lb Exam: General: Present: Appears Well, No Apparent Distress. Pleasant and cooperative. Appears comfortable. HEENT: Present: PERRL, Normocephaly, atraumatic. Mucus Membranes Moist. No jaundice noted. Conjunctiva moist and clear, sclerae anicteric Neck: Present: Supple Neck, Midline Trachea, No Masses, No Bruit Cardiac: Present: Regular Rate and Rhythm, No Murmur Lungs: Present: Clear to auscultation bilaterally, no wheeze, rhonchi, rales. Neuro: Present: Awake, alert, and oriented x3. Moves all extremities well without hemiparesis or paralysis. Grossly Intact. Absent: Resting Tremor, Essential Tremor Abdomen: Present: Soft, Active Bowel Sounds, No Masses, Non-Tender, nondistended. No abdominal bruit or thrill noted. Skin: Present: Clear. Absent: Rash, No skin breakdown. Musculoskeletal: Present: No Fluid Collection, No Pain, Normal Range of Motion Extremities: Present: Normal Gait, No Clubbing, No Cyanosis, Upper Extr. Pulses 2+, Lower Extr. Pulses 2+, No edema. Capillary refill less than 3 seconds. Result/EKG - Labs CBC & BMP: 11/03/16 01:08 11/03/16 01:08 Lab Results: I have reviewed the past 24 hour labs Labs: Laboratory Results - last 24 hr 11/02/16 11/03/16 11/03/16 22:03 01:08 01:08 WBC 11.8 RBC 4.64 Hgb 14.6 Hct 42.3 MCV 91.2 MCH 32 MCHC 34.5 RDW 13.3 Plt Count 285 MPV 9.1 L Neut % (Auto) 57.0 Lymph % (Auto) 32.6 [place] % (Auto) 7.4 Eos % (Auto) 1.4 Baso % (Auto) 0.8 Neut # (Auto) 6.8 Lymph # (Auto) 3.9 [place] # (Auto) 0.9 H Eos # (Auto) 0.2 Baso # (Auto) 0.1 Immature Gran % 0.8 Nucleated RBC % 0.0 Immature Gran # 0.09 Nucleated RBCs # 0.00 Sodium Potassium Chloride Carbon Dioxide Anion Gap BUN Creatinine GFR Calculation BUN/Creatinine Ratio Glucose Calculated Osmolality Calcium Magnesium Total Bilirubin AST ALT Alkaline Phosphatase Troponin I < 0.015 0.017 B-Natriuretic Peptide Total Protein Albumin Globulin Albumin/Globulin Ratio Triglycerides Cholesterol LDL Cholesterol VLDL Cholesterol HDL Cholesterol Heart Disease Risk Ratio 11/03/16 11/03/16 01:08 01:08 WBC RBC Hgb Hct MCV MCH MCHC RDW Plt Count MPV Neut % (Auto) Lymph % (Auto) [place] % (Auto) Eos % (Auto) Baso % (Auto) Neut # (Auto) Lymph # (Auto) [place] # (Auto) Eos # (Auto) Baso # (Auto) Immature Gran % Nucleated RBC % Immature Gran # Nucleated RBCs # Sodium 139 Potassium 3.4 L Chloride 105 Carbon Dioxide 27 Anion Gap 10.4 BUN 11 Creatinine 0.90 GFR Calculation 129 BUN/Creatinine Ratio 12.00 Glucose 132 H Calculated Osmolality 277.5 Calcium 8.6 Magnesium 2.3 Total Bilirubin < 0.39 AST 16 ALT 24 Alkaline Phosphatase 89 Troponin I B-Natriuretic Peptide 21 Total Protein 6.6 Albumin 3.6 Globulin 3.0 Albumin/Globulin Ratio 1.2 Triglycerides 507 H Cholesterol 121 LDL Cholesterol 48.0 VLDL Cholesterol 101.4 HDL Cholesterol 34 L Heart Disease Risk Ratio 3.56 - EKG EKG results: interpreted by me, sinus rhythm
[2016-11-03] MEDS: INSULIN REGULAR 100 UNIT/ML SUBCUT SCH ×2 (10:29→13:24)
[2016-11-03] MEDS: VERAPAMIL SR 240 MG TABLET PO SCH ×2 (10:30→13:27)
[2016-11-03] MEDS: VALSARTAN/HCTZ 80-12.5 MG TABLET PO SCH ×2 (10:30→13:27)
[2016-11-03] MEDS: CITALOPRAM 20 MG TABLET PO SCH ×2 (10:30→13:27)
[2016-11-03] MEDS: ASPIRIN EC 325 MG TABLET PO SCH ×2 (10:30→13:27)
[2016-11-03] MEDS: PANTOPRAZOLE 40 MG TABLET PO SCH ×3 (10:31→13:33)
[2016-11-03] MEDS: CLOPIDOGREL 75 MG TABLET PO SCH ×2 (10:31→13:28)
[2016-11-03] MEDS: CLORAZEPATE 7.5 MG TABLET PO SCH ×2 (10:31→13:26)
[2016-11-03] MEDS: ENOXAPARIN 100 MG/ML SYRINGE SUBCUT SCH (10:42)
--- NOTE | 2016-11-03 12:08 | Discharge Summary ---
Hospital Course - Hospital Course Hospital Course: [facility]: DR. SIMON Mr. King is a 46 year old male who is routinely followed by Dr. Simon. He presented to the emergency room yesterday afternoon with chest pain. He has been hospitalized 4 times since June with complaints of chest pain. The most recent admission was from 09/12/16-09/13/16 during which he was seen by GI and Pain treatment. He was given a trigger point injection of an intercostal nerve block of the left rib area which dramatically helped his pain. He also underwent an EGD and was found to have an ulcer thought to be due to NSAIDS and his Protonix was increased to BID. He has a history of coronary artery disease, status post stenting of the LAD and RCA in 2014. He has had recurrent chest pain since and has had 3 subsequent catheterizations since his stent placement which have revealed no new obstructive disease with widely patent stents in the left anterior descending and right coronary arteries. Last heart catheterization was July 03, 2016. He also has a history of hyperlipidemia, hypertension, depression, anxiety, abnormal chest CT with enlarged lymph nodes (follow-up was done July 2015 and this was stable). Exercise cardiolits stress testing on revealed a gated ejection fraction of 66% and no good evidence to suggest significant ischemia or scar. This admission, he reports his pain is "twice as bad" as it was previously with only "mild" relief of symptoms with nitroglycerin. He had relief of symptoms upon receiving morphine in the emergency room and has had no recurrent pain since. He has had 3 sets of negative troponins and no acute EKG changes. His chest x-ray is unremarkable. His vital signs have been stable. H&H is stable. Potassium was 3.4 on admission , he has been on the replacement protocol. Triglycerides were 507 this admission. Patient has been counseled on necessary lifestyle changes including avoiding fatty/fried foods, exercising with at least 30 minutes of moderate intensity activity 5 days per week not skipping more than 2 days in a row, and harmful effects of tobacco use. At this time, he is eligible for discharge. He will need to follow up with Dr. Oglesby within 2 weeks or at the first available appointment. He needs to be scheduled for an outpatient stress test at the first available appointment with follow up with Dr. Simon within 1-2 weeks after stress test (or first available appointment). Diagnosis - Discharge Diagnosis (1) Chest pain Status: Acute (2) CAD (coronary artery disease) Status: Chronic (3) Anxiety Status: Chronic (4) Dyslipidemia Status: Chronic (5) Leukocytosis, unspecified Status: Chronic (6) Depression Status: Chronic (7) Tobacco abuse Status: Chronic (8) Drug-seeking behavior Status: Chronic (9) Intercostal myalgia Status: Acute (10) Gastric ulcer Status: Acute Specialty Discharge - Follow Up or Referrals Follow up with: Noe Oglesby MD [Physician] - (Follow up with Dr. Oglesby at first available appointment. ) Cyn Simon MD [Physician] - (Please schedule for outpatient stress test at first available appointment to follow up with Dr. Simon 1-2 weeks after stress test (or first available appointment). ) Discharge Plan - Discharge Data Disposition: Disch To Home/Self Care Condition at Discharge: Stable Discharge Diet: diabetic diet, heart healthy Activity: resume usual activities as tolerated, increase activity as tolerated Hygiene: no restrictions Weight Bearing at Discharge: full weight bearing Contact your physician if you experience:: fever over 101, Difficulty voiding, Redness or swelling, Nausea/Vomiting, Shortness of breath, Bleeding, pain uncontrolled by pain medications - Discharge Medications Continue Aspirin EC Tab 81 mg PO DAILY tablet Nitroglycerin Sl Tab [Nitrostat] 0.4 mg SL Q5M PRN #20 tablet PRN Reason: Chest Pain Rosuvastatin Calcium [Crestor] 40 mg PO BEDTIME Valsartan/Hydrochlorothiazide [Valsartan-Hctz 160-25 mg Tab] 1 each PO QAM Clopidogrel [Plavix] 75 mg PO DAILY #30 tablet Amitriptyline HCl 75 mg PO BEDTIME Citalopram [CeleXA] 20 mg PO QAM Isosorbide Mononitrate [Imdur] 120 mg PO BEDTIME #30 tablet fluPHENAZine [Prolixin] 1 mg PO BID Verapamil HCl [Verapamil ER Cap] 240 mg PO DAILY metFORMIN [Glucophage] 500 mg PO DAILY Pantoprazole Tab [Protonix Tab] 40 mg PO BID #60 tablet Clorazepate [Tranxene] 7.5 mg PO BID - Follow Up or Referral Follow Up: Cyn Simon MD [Physician] - (Please schedule for outpatient stress test at first available appointment to follow up with Dr. Simon 1-2 weeks after stress test (or first available appointment). ) Noe Oglesby MD [Physician] - (Follow up with Dr. Oglesby at first available appointment. ) - Forms/Instructions Exam - Constitutional Vitals: Period Temp Pulse Resp BP Sys/Zhong Pulse Ox Last 24 Hr 96.0 F-97.9 F 65-80 14-20 119-132/67-89 94-98 Exam: General: Present: Appears Well, No Apparent Distress. Pleasant and cooperative. Appears comfortable. HEENT: Present: PERRL, Normocephaly, atraumatic. Mucus Membranes Moist. No jaundice noted. Conjunctiva moist and clear, sclerae anicteric Neck: Present: Supple Neck, Midline Trachea, No Masses, No Bruit Cardiac: Present: Regular Rate and Rhythm, No Murmur Lungs: Present: Clear to auscultation bilaterally, no wheeze, rhonchi, rales. Neuro: Present: Awake, alert, and oriented x3. Moves all extremities well without hemiparesis or paralysis. Grossly Intact. Absent: Resting Tremor, Essential Tremor Abdomen: Present: Soft, Active Bowel Sounds, No Masses, Non-Tender, nondistended. No abdominal bruit or thrill noted. Skin: Present: Clear. Absent: Rash, No skin breakdown. Musculoskeletal: Present: No Fluid Collection, No Pain, Normal Range of Motion Extremities: Present: Normal Gait, No Clubbing, No Cyanosis, Upper Extr. Pulses 2+, Lower Extr. Pulses 2+, No edema. Capillary refill less than 3 seconds. Discharge Results Labs on day of discharge: Labs from last 24 hours 11/03/16 11/03/16 11/03/16 01:08 01:08 01:08 WBC 11.8 RBC 4.64 Hgb 14.6 Hct 42.3 MCV 91.2 MCH 32 MCHC 34.5 RDW 13.3 Plt Count 285 MPV 9.1 L Neut % (Auto) 57.0 Lymph % (Auto) 32.6 [place] % (Auto) 7.4 Eos % (Auto) 1.4 Baso % (Auto) 0.8 Neut # (Auto) 6.8 Lymph # (Auto) 3.9 [place] # (Auto) 0.9 H Eos # (Auto) 0.2 Baso # (Auto) 0.1 Immature Gran % 0.8 Nucleated RBC % 0.0 Immature Gran # 0.09 Nucleated RBCs # 0.00 Sodium 139 Potassium 3.4 L Chloride 105 Carbon Dioxide 27 Anion Gap 10.4 BUN 11 Creatinine 0.90 GFR Calculation 129 BUN/Creatinine Ratio 12.00 Glucose 132 H Calculated Osmolality 277.5 Calcium 8.6 Magnesium 2.3 Total Bilirubin < 0.39 AST 16 ALT 24 Alkaline Phosphatase 89 Troponin I B-Natriuretic Peptide 21 Total Protein 6.6 Albumin 3.6 Globulin 3.0 Albumin/Globulin Ratio 1.2 Triglycerides 507 H Cholesterol 121 LDL Cholesterol 48.0 VLDL Cholesterol 101.4 HDL Cholesterol 34 L Heart Disease Risk Ratio 3.56 11/03/16 11/02/16 01:08 22:03 WBC RBC Hgb Hct MCV MCH MCHC RDW Plt Count MPV Neut % (Auto) Lymph % (Auto) [place] % (Auto) Eos % (Auto) Baso % (Auto) Neut # (Auto) Lymph # (Auto) [place] # (Auto) Eos # (Auto) Baso # (Auto) Immature Gran % Nucleated RBC % Immature Gran # Nucleated RBCs # Sodium Potassium Chloride Carbon Dioxide Anion Gap BUN Creatinine GFR Calculation BUN/Creatinine Ratio Glucose Calculated Osmolality Calcium Magnesium Total Bilirubin AST ALT Alkaline Phosphatase Troponin I 0.017 < 0.015 B-Natriuretic Peptide Total Protein Albumin Globulin Albumin/Globulin Ratio Triglycerides Cholesterol LDL Cholesterol VLDL Cholesterol HDL Cholesterol Heart Disease Risk Ratio DS: Provider Date of admission: 11/02/16 20:36 Primary care physician: Charis Elmore MD Attending physician on admission: Cyn Simon, Discharging clinician: HANNAH Segura Expected date of discharge: 11/03/16
[2016-11-03 12:15] VITALS: BP 135/75
[2016-11-03] MEDS: SODIUM CHLORIDE 0.9% 1,000 ML IV SCH (15:17)
== END 2016-11-03 15:40 | disposition home or self-care (01) | DRG 313 ==
LOC: EDBD → EDUNIT# → N.ED 18:46 → N.EDINP 20:36 → N.TELEN 21:11
PROVIDERS: ADMIT Internal Medicine Cardiovascular Disease; ATTEND Internal Medicine Cardiovascular Disease

== ENCOUNTER 2017-08-11 08:12 | Observation (INO) ==
[2017-08-11] MEDS ORDERED: ASPIRIN 325 MG TABLET PO STA (09:01)
[2017-08-11] MEDS ORDERED: MORPHINE 2 MG/1 ML SYRINGE IV STA ×2 (09:12→10:09)
[2017-08-11] MEDS ORDERED: NITROGLYCERIN 2% OINT 1 INCH/GM PACK TOP STA (09:12)
[2017-08-11] MEDS ORDERED: ENOXAPARIN 100 MG/ML SYRINGE SUBCUT STA (09:12)
[2017-08-11] MEDS ORDERED: ONDANSETRON 4 MG/2 ML VIAL IV STA (09:12)
[2017-08-11] MEDS ORDERED: NITROGLYCERIN 2% OINT 1 INCH/GM PACK TOP ONE (09:14)
[2017-08-11] MEDS ORDERED: ENOXAPARIN 100 MG/ML SYRINGE SUBCUT ONE (09:14)
[2017-08-11] MEDS ORDERED: MORPHINE 2 MG/1 ML SYRINGE ONE ×2 (09:15→10:10)
[2017-08-11] MEDS ORDERED: ONDANSETRON 4 MG/2 ML VIAL ONE (09:15)
[2017-08-11] MEDS ORDERED: ASPIRIN 325 MG TABLET ONE (09:15)
[2017-08-11] MEDS ORDERED: NITROGLYCERIN SL 0.4 MG TABLET SL ONE ×2 (09:24→10:15)
[2017-08-11] MEDS: NITROGLYCERIN SL 0.4 MG TABLET SL PRN ×2 (09:25→10:15)
[2017-08-11 09:28] LABS: Basophils # 0.1 10*3/uL (0.0-0.2); Basophils % 1.1 % (0.0-0.8); Eosinophils # 0.2 10*3/uL (0.0-0.87); Eosinophils % 1.6 % (0.00-10.9); Hematocrit 49.4 VOL% (42.0-52.0); Hemoglobin 16.5 GM/DL (14.0-18.0); Immature Granulocytes % 0.5 %; Immature Granulocytes Absolute 0.05 #; Lymphocytes # 3.3 10*3/uL (1.4-4.0); Lymphocytes % 30.8 % (21.2-54.2); Mean Corpuscular HGB Conc 33.4 GM/DL (32-36); Mean Corpuscular Hemoglobin 31 PG (27-34); Mean Corpuscular Volume 92.2 FL (87-102); Mean Platelet Volume 9.3 FL (9.6-12.0); Monocytes # 0.8 10*3/uL (0.11-0.8); Monocytes % 7.3 % (1.7-12.7); Neutrophils # 6.3 10*3/uL (1.4-7.4); Neutrophils % 58.7 % (38.7-73.9); Platelet Count 335 T/CUMM (130-400); Red Blood Count 5.36 MC/CUMM (3.8-5.5); Red Cell Distribution Width 12.6 % (9.3-17.3); White Blood Count 10.7 T/CUMM (4-12)
[2017-08-11 09:32] LABS: INR 0.9; Partial Thromboplastin Time 29.6 SECS (0-40)
[2017-08-11 10:06] LABS: Alanine Aminotransferase 19 U/L (16-61); Albumin 4.1 G/DL (3.4-5.0); Alkaline Phosphatase 123 U/L (45-117); Aspartate Amino Transferase 17 U/L (0-37); Bilirubin,Total < 0.39 MG/DL (0.2-1.0); Blood Urea Nitrogen 9 MG/DL (7-18); Calcium 9.2 MG/DL (8.5-10.1); Glucose 89 MG/DL (74-106); Potassium 4.3 MMOL/L (3.5-5.1); Sodium 136 MMOL/L (136-145); Total Protein 7.8 G/DL (6.4-8.3)
[2017-08-11] MEDS ORDERED: MAGNESIUM SULF RIDER 2 GM in PREMIX 1 EACH IV PRN (11:04)
[2017-08-11] MEDS ORDERED: ZALEPLON 5 MG CAPSULE PO PRN (11:04)
[2017-08-11] MEDS ORDERED: ONDANSETRON 4 MG/2 ML VIAL IV PRN (11:04)
[2017-08-11] MEDS ORDERED: ACETAMINOPHEN 325 MG TABLET PO PRN (11:04)
[2017-08-11] MEDS ORDERED: MAGNESIUM SULF RIDER 4 GM in PREMIX 1 EACH IV PRN (11:04)
[2017-08-11] MEDS ORDERED: NITROGLYCERIN SL 0.4 MG TABLET SL PRN (11:10)
[2017-08-11] MEDS ORDERED: INFLUENZA VIRUS VACCINE 0.5 ML SYRINGE IM ONE (13:44)
[2017-08-11] MEDS ORDERED: PNEUMOCOCCAL VACCINE (13 VALENT) 0.5 ML SYRINGE IM ONE (13:44)
[2017-08-11] MEDS: KETOROLAC 30 MG/1 ML VIAL IV SCH ×2 (14:05→21:02)
[2017-08-11] MEDS: METOPROLOL TARTRATE 25 MG TABLET PO SCH ×2 (14:05→20:58)
[2017-08-11] MEDS ORDERED: IBUPROFEN 800 MG TABLET PO SCH (15:00)
[2017-08-11] MEDS: ISOSORBIDE MONONITRATE 60 MG TABLET PO SCH (20:57)
[2017-08-11] MEDS: RANOLAZINE 500 MG TABLET PO SCH (20:58)
[2017-08-11] MEDS: ATORVASTATIN 40 MG TABLET PO SCH (20:58)
[2017-08-11] MEDS: PANTOPRAZOLE 40 MG TABLET PO SCH (20:58)
[2017-08-11] MEDS: AMITRIPTYLINE 75 MG TABLET PO SCH (20:59)
[2017-08-11] MEDS: CLOPIDOGREL 75 MG TABLET PO SCH (20:59)
[2017-08-12] MEDS: KETOROLAC 30 MG/1 ML VIAL IV SCH ×2 (02:15→09:55)
[2017-08-12] MEDS: CITALOPRAM 20 MG TABLET PO SCH (09:45)
[2017-08-12] MEDS: RANOLAZINE 500 MG TABLET PO SCH ×2 (09:46→21:46)
[2017-08-12] MEDS: ASPIRIN EC 81 MG TABLET PO SCH (09:46)
[2017-08-12] MEDS: PANTOPRAZOLE 40 MG TABLET PO SCH ×2 (09:46→21:45)
[2017-08-12] MEDS: METOPROLOL TARTRATE 25 MG TABLET PO SCH ×2 (09:46→21:45)
[2017-08-12] MEDS: VALSARTAN/HCTZ 80-12.5 MG TABLET PO SCH (09:46)
[2017-08-12] MEDS: VERAPAMIL SR 240 MG TABLET PO SCH (09:47)
[2017-08-12] MEDS: ENOXAPARIN 40 MG/0.4 ML SYRINGE SUBCUT SCH (09:53)
[2017-08-12] MEDS ORDERED: diphenhydrAMINE CAP 25 MG CAPSULE PO ONE (11:51)
[2017-08-12] MEDS ORDERED: SODIUM CHLORIDE 0.9% 1,000 ML IV SCH (12:00)
[2017-08-12] MEDS ORDERED: DIAZEPAM 5 MG TABLET PO ONE (12:48)
[2017-08-12] MEDS ORDERED: LIDOCAINE 1% 20 ML VIAL ONE (13:32)
[2017-08-12] MEDS ORDERED: HEPARIN/NACL 0.9% 2 UNITS/ML 1,000 ML IV ONE ×2 (13:32→14:01)
[2017-08-12] MEDS ORDERED: VERAPAMIL 5 MG/2 ML VIAL ONE (13:33)
[2017-08-12] MEDS ORDERED: NITROGLYCERIN DRIP 0 MG/0 ML BOTTLE IV ONE (13:33)
[2017-08-12] MEDS ORDERED: LIDOCAINE 2%/EPI 20 ML VIAL ONE (13:45)
[2017-08-12] MEDS ORDERED: MIDAZOLAM 2 MG/2 ML VIAL ONE (14:02)
[2017-08-12] MEDS ORDERED: fentaNYL 100 MCG/2 ML VIAL ONE (14:02)
[2017-08-12] MEDS ORDERED: ROPIVACAINE 0.5% 30 ML VIAL NERVEBLOCK ONE (16:15)
[2017-08-12] MEDS ORDERED: TRIAMCINOLONE ACETONIDE 40 MG/1 ML VIAL IM ONE (16:16)
[2017-08-12] MEDS: AMITRIPTYLINE 75 MG TABLET PO SCH (21:45)
[2017-08-12] MEDS: CLOPIDOGREL 75 MG TABLET PO SCH (21:45)
[2017-08-12] MEDS: ATORVASTATIN 40 MG TABLET PO SCH (21:45)
[2017-08-12] MEDS: ISOSORBIDE MONONITRATE 60 MG TABLET PO SCH (21:45)
[2017-08-13 04:52] LABS: Basophils # 0.1 10*3/uL (0.0-0.2); Basophils % 0.9 % (0.0-0.8); Eosinophils # 0.3 10*3/uL (0.0-0.87); Eosinophils % 2.7 % (0.00-10.9); Hematocrit 44.1 VOL% (42.0-52.0); Hemoglobin 15.2 GM/DL (14.0-18.0); Immature Granulocytes % 0.5 %; Immature Granulocytes Absolute 0.05 #; Lymphocytes % 38.2 % (21.2-54.2); Mean Corpuscular HGB Conc 34.5 GM/DL (32-36); Mean Corpuscular Hemoglobin 32 PG (27-34); Mean Corpuscular Volume 91.7 FL (87-102); Mean Platelet Volume 9.5 FL (9.6-12.0); Monocytes # 0.8 10*3/uL (0.11-0.8); Neutrophils # 5.2 10*3/uL (1.4-7.4); Neutrophils % 49.7 % (38.7-73.9); Platelet Count 287 T/CUMM (130-400); Red Blood Count 4.81 MC/CUMM (3.8-5.5); Red Cell Distribution Width 12.6 % (9.3-17.3); White Blood Count 10.4 T/CUMM (4-12)
[2017-08-13 05:16] LABS: Calcium 8.6 MG/DL (8.5-10.1); Potassium 4.4 MMOL/L (3.5-5.1)
[2017-08-13 05:19] LABS: Risk Ratio 8.16
[2017-08-13] MEDS: CITALOPRAM 20 MG TABLET PO SCH (08:21)
[2017-08-13] MEDS: PANTOPRAZOLE 40 MG TABLET PO SCH (08:21)
[2017-08-13] MEDS: VALSARTAN/HCTZ 80-12.5 MG TABLET PO SCH (08:21)
[2017-08-13] MEDS: RANOLAZINE 500 MG TABLET PO SCH (08:21)
[2017-08-13] MEDS: METOPROLOL TARTRATE 25 MG TABLET PO SCH (08:22)
[2017-08-13] MEDS: ASPIRIN EC 81 MG TABLET PO SCH (08:22)
[2017-08-13] MEDS: VERAPAMIL SR 240 MG TABLET PO SCH (08:27)
[2017-08-13] MEDS: ENOXAPARIN 40 MG/0.4 ML SYRINGE SUBCUT SCH (11:48)
[2017-08-13 12:01] VITALS: BP 106/57
== END 2017-08-13 15:24 | disposition home or self-care (01) ==
LOC: N.EDINP 08:12 → N.ED 08:12 → N.EDINP 13:13 → N.TELEN 13:19
PROVIDERS: ADMIT Internal Medicine Cardiovascular Disease; ATTEND Internal Medicine Cardiovascular Disease
PROC: CLCCHCL (ICD-10-PCS; 2017-08-12 15:15)

== ENCOUNTER 2018-01-11 12:25 | Inpatient (IN) ==
[2018-01-11 13:16] LABS: Troponin I Only < 0.015 NG/ML (0.00-0.045)
[2018-01-11 13:24] LABS: Basophils # 0.1 10*3/uL (0.0-0.2); Basophils % 0.8 % (0.0-0.8); Eosinophils # 0.2 10*3/uL (0.0-0.87); Eosinophils % 1.3 % (0.00-10.9); Hematocrit 49.6 VOL% (42.0-52.0); Immature Granulocytes % 0.7 %; Immature Granulocytes Absolute 0.09 #; Lymphocytes # 3.4 10*3/uL (1.4-4.0); Lymphocytes % 25.9 % (21.2-54.2); Mean Corpuscular HGB Conc 34.3 GM/DL (32-36); Mean Corpuscular Hemoglobin 31 PG (27-34); Mean Corpuscular Volume 91.3 FL (87-102); Mean Platelet Volume 9.4 FL (9.6-12.0); Monocytes # 0.9 10*3/uL (0.11-0.8); Monocytes % 6.9 % (1.7-12.7); Neutrophils # 8.4 10*3/uL (1.4-7.4); Neutrophils % 64.4 % (38.7-73.9); Platelet Count 315 T/CUMM (130-400); Red Blood Count 5.43 MC/CUMM (3.8-5.5)
[2018-01-11 13:30] LABS: PT Patient Result 10.2 SECS; Partial Thromboplastin Time 32.7 SECS (0-40)
[2018-01-11 13:36] LABS: Albumin 3.8 G/DL (3.4-5.0); Bilirubin,Total 0.4 MG/DL (0.2-1.0); Osmolality,Calculated 273.5 MOS/KG (273-304); Potassium 3.9 MMOL/L (3.5-5.1); Total Protein 8.1 G/DL (6.4-8.3)
[2018-01-11 17:14] LABS: Risk Ratio 6.77; VLDL CHOLESTEROL 94.6 MG/DL
[2018-01-11 17:32] LABS: Apearance,Urine CLEAR (Clear); Bilirubin,Urine Negative (Negative); Blood, Urine Negative (Negative); Glucose,Urine (UA) Negative (Negative); Ketones,Urine Negative (Negative); Mucus,Urine Occasional /LPF (Occasional); Nitrite,Urine Negative (Negative); Protein,Urine Negative; Urine Color Yellow (Yellow); Urine Specific Gravity 1.006 (1.001-1.035); Urine Urobilinogen < 2.0 EU/DL (0.2-1.0)
[2018-01-11 17:33] LABS: Barbiturates Screen,Urine Negative (Negative); Benzodiazepines Screen,Urine Negative (Negative); Cannabinoid Screen,Urine Negative (Negative); Opiate Screen,Urine Positive (Negative); Phencyclidine Screen,Urine Negative (Negative)
[2018-01-12 04:53] LABS: Basophils # 0.1 10*3/uL (0.0-0.2); Basophils % 1.1 % (0.0-0.8); Eosinophils # 0.3 10*3/uL (0.0-0.87); Eosinophils % 2.1 % (0.00-10.9); Hematocrit 45.3 VOL% (42.0-52.0); Hemoglobin 14.8 GM/DL (14.0-18.0); Immature Granulocytes % 1.1 %; Immature Granulocytes Absolute 0.14 #; Lymphocytes # 3.9 10*3/uL (1.4-4.0); Lymphocytes % 31.9 % (21.2-54.2); Mean Corpuscular HGB Conc 32.7 GM/DL (32-36); Mean Corpuscular Hemoglobin 30 PG (27-34); Mean Platelet Volume 9.5 FL (9.6-12.0); Monocytes # 1.1 10*3/uL (0.11-0.8); Monocytes % 8.8 % (1.7-12.7); Neutrophils # 6.8 10*3/uL (1.4-7.4); Platelet Count 273 T/CUMM (130-400); Red Blood Count 4.87 MC/CUMM (3.8-5.5); White Blood Count 12.3 T/CUMM (4-12)
[2018-01-12 05:25] LABS: Bilirubin,Total 0.4 MG/DL (0.2-1.0); Calcium 8.7 MG/DL (8.5-10.1); Total Protein 6.6 G/DL (6.4-8.3)
[2018-01-12 05:26] LABS: Osmolality,Calculated 274.5 MOS/KG (273-304); Potassium 3.8 MMOL/L (3.5-5.1)
[2018-01-13 06:38] LABS: Basophils # 0.1 10*3/uL (0.0-0.2); Basophils % 0.4 % (0.0-0.8); Eosinophils # 0.1 10*3/uL (0.0-0.87); Eosinophils % 0.7 % (0.00-10.9); Hematocrit 44.4 VOL% (42.0-52.0); Hemoglobin 14.8 GM/DL (14.0-18.0); Immature Granulocytes % 1.2 %; Immature Granulocytes Absolute 0.14 #; Lymphocytes # 2.6 10*3/uL (1.4-4.0); Lymphocytes % 21.6 % (21.2-54.2); Mean Corpuscular HGB Conc 33.3 GM/DL (32-36); Mean Corpuscular Hemoglobin 31 PG (27-34); Mean Corpuscular Volume 92.7 FL (87-102); Mean Platelet Volume 9.5 FL (9.6-12.0); Monocytes # 0.9 10*3/uL (0.11-0.8); Monocytes % 7.5 % (1.7-12.7); Neutrophils # 8.3 10*3/uL (1.4-7.4); Neutrophils % 68.6 % (38.7-73.9); Platelet Count 290 T/CUMM (130-400); Red Blood Count 4.79 MC/CUMM (3.8-5.5); Red Cell Distribution Width 12.9 % (9.3-17.3); White Blood Count 12.1 T/CUMM (4-12)
[2018-01-13 07:03] LABS: Calcium 8.5 MG/DL (8.5-10.1); Osmolality,Calculated 271.8 MOS/KG (273-304); Potassium 4.2 MMOL/L (3.5-5.1)
[2018-01-13 11:38] VITALS: BP 129/78
== END 2018-01-13 16:00 | disposition home or self-care (01) | DRG 206 ==
LOC: N.ED 12:25 → N.EDINP 15:13 → N.TELEN 17:53
PROVIDERS: ADMIT Internal Medicine; ATTEND Internal Medicine

== ENCOUNTER 2019-05-26 09:03 | Observation (INO) ==
[2019-05-26] MEDS ORDERED: ONDANSETRON 4 MG/2 ML VIAL IV STA (09:20)
[2019-05-26] MEDS ORDERED: HYDROmorphone 2 MG/1 ML VIAL IV STA ×2 (09:20→11:48)
[2019-05-26 09:44] LABS: Basophils # 0.1 10*3/uL (0.0-0.2); Basophils % 0.7 % (0.0-0.8); Eosinophils # 0.1 10*3/uL (0.0-0.87); Eosinophils % 0.9 % (0.00-10.9); Hematocrit 50.2 VOL% (42.0-52.0); Hemoglobin 16.7 GM/DL (14.0-18.0); Immature Granulocytes % 0.7 %; Immature Granulocytes Absolute 0.08 #; Lymphocytes # 2.7 10*3/uL (1.4-4.0); Lymphocytes % 22.1 % (21.2-54.2); Mean Corpuscular HGB Conc 33.3 GM/DL (32-36); Mean Platelet Volume 9.2 FL (9.6-12.0); Monocytes % 7.1 % (1.7-12.7); Neutrophils % 68.5 % (38.7-73.9); Platelet Count 322 T/CUMM (130-400); Red Blood Count 5.34 MC/CUMM (3.8-5.5); Red Cell Distribution Width 12.7 % (9.3-17.3); White Blood Count 12.2 T/CUMM (4-12)
[2019-05-26 10:02] LABS: Alanine Aminotransferase 21 U/L (16-61); Alkaline Phosphatase 112 U/L (45-117); Aspartate Amino Transferase 11 U/L (0-37); Bilirubin,Total < 0.39 MG/DL (0.2-1.0); Blood Urea Nitrogen 8 MG/DL (7-18); Calcium 8.7 MG/DL (8.5-10.1); Estimated Glom Filtration Rate 126 ML/MIN; Glucose 104 MG/DL (74-106); Osmolality,Calculated 270.8 MOS/KG (273-304); Total Protein 8.3 G/DL (6.4-8.3)
[2019-05-26 10:36] LABS: Apearance,Urine CLEAR (Clear); Bilirubin,Urine Negative (Negative); Blood, Urine Negative (Negative); Glucose,Urine (UA) Negative (Negative); Ketones,Urine Negative (Negative); Nitrite,Urine Negative (Negative); Protein,Urine Negative; RBC,Urine 1 /HPF (0-4); Urine Color Yellow (Yellow); Urine Urobilinogen < 2.0 EU/DL (0.2-1.0)
[2019-05-26] MEDS ORDERED: ONDANSETRON 4 MG/2 ML VIAL IV PRN (10:58)
[2019-05-26] MEDS ORDERED: ACETAMINOPHEN 325 MG TABLET PO PRN (10:58)
[2019-05-26] MEDS ORDERED: SODIUM CHLORIDE 0.9% 1,000 ML IV STA (12:06)
[2019-05-26] MEDS: DEXTROSE 5% LACTATED RINGERS 1,000 ML IV SCH ×2 (12:33→19:47)
[2019-05-26] MEDS: MORPHINE 4 MG/1 ML VIAL IV PRN ×3 (13:39→21:05)
[2019-05-26] MEDS: cefOXitin 2,000 MG in SYRINGE 1 EACH IV SCH ×2 (13:41→19:48)
[2019-05-27] MEDS: cefOXitin 2,000 MG in SYRINGE 1 EACH IV SCH ×4 (00:19→18:29)
[2019-05-27] MEDS: MORPHINE 4 MG/1 ML VIAL IV PRN ×6 (00:58→21:21)
[2019-05-27] MEDS: DEXTROSE 5% LACTATED RINGERS 1,000 ML IV SCH ×2 (04:20→13:14)
[2019-05-27 05:34] LABS: Basophils # 0.1 10*3/uL (0.0-0.2); Basophils % 1.1 % (0.0-0.8); Eosinophils # 0.3 10*3/uL (0.0-0.87); Eosinophils % 3.8 % (0.00-10.9); Hematocrit 46.4 VOL% (42.0-52.0); Hemoglobin 15.2 GM/DL (14.0-18.0); Immature Granulocytes % 0.5 %; Immature Granulocytes Absolute 0.04 #; Lymphocytes # 2.9 10*3/uL (1.4-4.0); Lymphocytes % 35.2 % (21.2-54.2); Mean Corpuscular HGB Conc 32.8 GM/DL (32-36); Mean Corpuscular Volume 94.5 FL (87-102); Mean Platelet Volume 9.4 FL (9.6-12.0); Monocytes % 8.1 % (1.7-12.7); Neutrophils % 51.3 % (38.7-73.9); Platelet Count 277 T/CUMM (130-400); Red Blood Count 4.91 MC/CUMM (3.8-5.5); Red Cell Distribution Width 12.6 % (9.3-17.3); White Blood Count 8.2 T/CUMM (4-12)
[2019-05-27 06:00] LABS: Calcium 8.5 MG/DL (8.5-10.1); Osmolality,Calculated 280.1 MOS/KG (273-304)
[2019-05-27] MEDS: PANTOPRAZOLE 40 MG TABLET PO SCH (08:54)
[2019-05-27] MEDS ORDERED: VALSARTAN/HCTZ 80-12.5 MG TABLET PO SCH (09:00)
[2019-05-27] MEDS: carvediloL 12.5 MG TABLET PO SCH ×2 (12:22→21:21)
[2019-05-27] MEDS ORDERED: NITROGLYCERIN SL 0.4 MG TABLET SL PRN (13:05)
[2019-05-27] MEDS: hydroCHLOROthiazide 25 MG TABLET PO SCH (13:13)
[2019-05-27] MEDS: VALSARTAN 160 MG TABLET PO SCH (13:13)
[2019-05-27] MEDS ORDERED: AMITRIPTYLINE 75 MG TABLET PO SCH (21:00)
[2019-05-27] MEDS ORDERED: ISOSORBIDE MONONITRATE 60 MG TABLET PO SCH (21:00)
[2019-05-28] MEDS: DEXTROSE 5% LACTATED RINGERS 1,000 ML IV SCH ×3 (00:07→14:27)
[2019-05-28] MEDS: cefOXitin 2,000 MG in SYRINGE 1 EACH IV SCH ×2 (00:09→06:42)
[2019-05-28] MEDS: MORPHINE 4 MG/1 ML VIAL IV PRN ×2 (02:56→06:46)
[2019-05-28 08:41] VITALS: BP 120/61
[2019-05-28] MEDS ORDERED: VERAPAMIL SR 240 MG TABLET PO SCH (09:00)
[2019-05-28] MEDS: VALSARTAN 160 MG TABLET PO SCH (09:57)
[2019-05-28] MEDS: carvediloL 12.5 MG TABLET PO SCH (09:57)
[2019-05-28] MEDS: hydroCHLOROthiazide 25 MG TABLET PO SCH (09:58)
[2019-05-28] MEDS: PANTOPRAZOLE 40 MG TABLET PO SCH (09:58)
== END 2019-05-28 12:10 | disposition home or self-care (01) ==
LOC: N.EDINP 09:03 → N.ED 09:03 → N.3E 12:37
PROVIDERS: ADMIT Surgery; ATTEND Surgery

== ENCOUNTER 2019-05-29 12:08 | Inpatient (IN) ==
[2019-05-29 12:35] LABS: Basophils # 0.1 10*3/uL (0.0-0.2); Basophils % 0.7 % (0.0-0.8); Eosinophils # 0.2 10*3/uL (0.0-0.87); Eosinophils % 1.6 % (0.00-10.9); Hematocrit 51.7 VOL% (42.0-52.0); Hemoglobin 17.3 GM/DL (14.0-18.0); Immature Granulocytes % 0.5 %; Immature Granulocytes Absolute 0.07 #; Lymphocytes # 3.8 10*3/uL (1.4-4.0); Lymphocytes % 24.4 % (21.2-54.2); Mean Corpuscular HGB Conc 33.5 GM/DL (32-36); Mean Corpuscular Volume 93.3 FL (87-102); Mean Platelet Volume 9.1 FL (9.6-12.0); Monocytes % 6.2 % (1.7-12.7); Neutrophils % 66.6 % (38.7-73.9); Platelet Count 342 T/CUMM (130-400); Red Blood Count 5.54 MC/CUMM (3.8-5.5); Red Cell Distribution Width 12.5 % (9.3-17.3); White Blood Count 15.5 T/CUMM (4-12)
[2019-05-29] MEDS ORDERED: SODIUM CHLORIDE 0.9% 1,000 ML IV STA (12:35)
[2019-05-29 12:43] LABS: Apearance,Urine CLEAR (Clear); Bilirubin,Urine Negative (Negative); Blood, Urine Negative (Negative); Glucose,Urine (UA) Negative (Negative); Ketones,Urine Negative (Negative); Nitrite,Urine Negative (Negative); Protein,Urine Negative; RBC,Urine 1 /HPF (0-4); Urine Color Yellow (Yellow); Urine Specific Gravity 1.014 (1.001-1.035); Urine Urobilinogen < 2.0 EU/DL (0.2-1.0)
[2019-05-29 12:55] LABS: Albumin 4.1 G/DL (3.4-5.0); Bilirubin,Total 0.4 MG/DL (0.2-1.0); Calcium 9.1 MG/DL (8.5-10.1); Osmolality,Calculated 272.5 MOS/KG (273-304); Total Protein 8.4 G/DL (6.4-8.3)
[2019-05-29] MEDS ORDERED: MORPHINE 4 MG/1 ML VIAL IV STA (13:53)
[2019-05-29] MEDS ORDERED: ONDANSETRON 4 MG/2 ML VIAL IV ONE (13:53)
[2019-05-29] MEDS ORDERED: ACETAMINOPHEN 325 MG TABLET PO PRN (14:01)
[2019-05-29] MEDS ORDERED: ONDANSETRON 4 MG/2 ML VIAL IV PRN (14:01)
[2019-05-29] MEDS ORDERED: INFLUENZA VIRUS VACCINE 0.5 ML SYRINGE IM ONE (15:48)
[2019-05-29] MEDS: DEXTROSE 5% LACTATED RINGERS 1,000 ML IV SCH (16:19)
[2019-05-29] MEDS: PIPERACILLIN/TAZOBACTAM 3,375 MG in SODIUM CHLORIDE 0.9% 100 ML IV SCH ×3 (16:19→22:25)
[2019-05-29] MEDS: HYDROmorphone 2 MG/1 ML VIAL IV PRN ×2 (16:28→20:25)
[2019-05-30] MEDS: HYDROmorphone 2 MG/1 ML VIAL IV PRN ×6 (01:11→23:13)
[2019-05-30] MEDS: PIPERACILLIN/TAZOBACTAM 3,375 MG in SODIUM CHLORIDE 0.9% 100 ML IV SCH ×3 (05:39→23:11)
[2019-05-30] MEDS: DEXTROSE 5% LACTATED RINGERS 1,000 ML IV SCH ×2 (07:20→14:40)
[2019-05-30] MEDS ORDERED: NITROGLYCERIN SL 0.4 MG TABLET SL PRN (10:22)
[2019-05-30] MEDS: PANTOPRAZOLE 40 MG TABLET PO SCH (13:35)
[2019-05-30] MEDS: RANOLAZINE 500 MG TABLET PO SCH (20:59)
[2019-05-30] MEDS: ISOSORBIDE MONONITRATE 60 MG TABLET PO SCH (20:59)
[2019-05-30] MEDS: carvediloL 12.5 MG TABLET PO SCH (20:59)
[2019-05-30] MEDS: AMITRIPTYLINE 75 MG TABLET PO SCH (20:59)
[2019-05-31] MEDS: HYDROmorphone 2 MG/1 ML VIAL IV PRN ×4 (04:31→20:23)
[2019-05-31] MEDS: DEXTROSE 5% LACTATED RINGERS 1,000 ML IV SCH ×3 (04:34→15:15)
[2019-05-31 04:46] LABS: Basophils # 0.1 10*3/uL (0.0-0.2); Eosinophils # 0.4 10*3/uL (0.0-0.87); Eosinophils % 3.8 % (0.00-10.9); Hematocrit 43.5 VOL% (42.0-52.0); Hemoglobin 14.4 GM/DL (14.0-18.0); Immature Granulocytes % 0.5 %; Immature Granulocytes Absolute 0.05 #; Lymphocytes # 2.3 10*3/uL (1.4-4.0); Lymphocytes % 21.1 % (21.2-54.2); Mean Corpuscular HGB Conc 33.1 GM/DL (32-36); Mean Platelet Volume 9.3 FL (9.6-12.0); Monocytes % 7.7 % (1.7-12.7); Neutrophils % 65.9 % (38.7-73.9); Platelet Count 307 T/CUMM (130-400); Red Blood Count 4.63 MC/CUMM (3.8-5.5); Red Cell Distribution Width 12.6 % (9.3-17.3); White Blood Count 10.7 T/CUMM (4-12)
[2019-05-31] MEDS: PIPERACILLIN/TAZOBACTAM 3,375 MG in SODIUM CHLORIDE 0.9% 100 ML IV SCH ×3 (06:25→22:54)
[2019-05-31] MEDS: VERAPAMIL SR 240 MG TABLET PO SCH (08:56)
[2019-05-31] MEDS: carvediloL 12.5 MG TABLET PO SCH ×2 (08:56→20:23)
[2019-05-31] MEDS: ASPIRIN EC 81 MG TABLET PO SCH (08:56)
[2019-05-31] MEDS: hydroCHLOROthiazide 12.5 MG CAPSULE PO SCH (08:58)
[2019-05-31] MEDS: PANTOPRAZOLE 40 MG TABLET PO SCH (08:58)
[2019-05-31] MEDS: RANOLAZINE 500 MG TABLET PO SCH ×2 (08:58→20:23)
[2019-05-31] MEDS ORDERED: VALSARTAN 160 MG TABLET PO SCH (09:00)
[2019-05-31] MEDS: VALSARTAN 160 MG TABLET PO SCH (10:16)
[2019-05-31] MEDS: ISOSORBIDE MONONITRATE 60 MG TABLET PO SCH (20:23)
[2019-05-31] MEDS: AMITRIPTYLINE 75 MG TABLET PO SCH (20:23)
[2019-06-01] MEDS: HYDROmorphone 2 MG/1 ML VIAL IV PRN ×5 (00:59→21:41)
[2019-06-01] MEDS: PIPERACILLIN/TAZOBACTAM 3,375 MG in SODIUM CHLORIDE 0.9% 100 ML IV SCH ×3 (05:54→21:42)
[2019-06-01] MEDS: DEXTROSE 5% LACTATED RINGERS 1,000 ML IV SCH ×3 (06:08→15:41)
[2019-06-01] MEDS: carvediloL 12.5 MG TABLET PO SCH ×2 (09:46→20:09)
[2019-06-01] MEDS: VALSARTAN 160 MG TABLET PO SCH (09:46)
[2019-06-01] MEDS: VERAPAMIL SR 240 MG TABLET PO SCH (09:46)
[2019-06-01] MEDS: RANOLAZINE 500 MG TABLET PO SCH ×2 (09:46→20:09)
[2019-06-01] MEDS: ASPIRIN EC 81 MG TABLET PO SCH (09:47)
[2019-06-01] MEDS: PANTOPRAZOLE 40 MG TABLET PO SCH (09:47)
[2019-06-01] MEDS: hydroCHLOROthiazide 12.5 MG CAPSULE PO SCH (09:47)
[2019-06-01] MEDS ORDERED: BUPIVACAINE MPF 0.25% 30 ML VIAL ONE (12:11)
[2019-06-01] MEDS ORDERED: LIDOCAINE 1%/EPI INJ 20 ML VIAL ONE (12:11)
[2019-06-01 13:40] LABS: Troponin I < 0.015 NG/ML (0.00-0.045)
[2019-06-01] MEDS ORDERED: MIDAZOLAM 2 MG/2 ML VIAL ONE (14:30)
[2019-06-01] MEDS ORDERED: PROPOFOL 200 MG/20 ML VIAL IV ONE (14:30)
[2019-06-01] MEDS ORDERED: SEVOFLURANE 1 UNIT/15 MINUTE INH ONE (14:30)
[2019-06-01] MEDS ORDERED: LIDOCAINE 2% 5 ML VIAL ONE ×2 (14:30→14:55)
[2019-06-01] MEDS ORDERED: ONDANSETRON 4 MG/2 ML VIAL ONE (14:31)
[2019-06-01] MEDS ORDERED: DEXAMETHASONE 4 MG/1 ML VIAL ONE (14:31)
[2019-06-01] MEDS ORDERED: LACTATED RINGERS 1,000 ML IV ONE (14:31)
[2019-06-01] MEDS ORDERED: fentaNYL 100 MCG/2 ML VIAL ONE ×2 (14:31→14:55)
[2019-06-01] MEDS ORDERED: NEOSTIGMINE 10 MG/10 ML VIAL ONE (14:31)
[2019-06-01] MEDS ORDERED: ePHEDrine 50 MG/ML AMP ONE (14:31)
[2019-06-01] MEDS ORDERED: SUCCINYLCHOLINE 200 MG/10 ML VIAL ONE (14:31)
[2019-06-01] MEDS ORDERED: ROCURONIUM 100 MG/10 ML VIAL IV ONE (14:31)
[2019-06-01] MEDS ORDERED: GLYCOPYRROLATE 0.4 MG/2 ML VIAL ONE ×2 (14:31)
[2019-06-01] MEDS ORDERED: TISSUE ADHESIVE 1 EACH APPLICATOR TOP ONE (14:32)
[2019-06-01] MEDS ORDERED: ALBUTEROL/IPRATROPIUM 3 ML NEB RESP TX ONE ×2 (14:54→15:21)
[2019-06-01] MEDS ORDERED: EPINEPHrine 1 MG/ML VIAL ONE (14:55)
[2019-06-01] MEDS: ISOSORBIDE MONONITRATE 60 MG TABLET PO SCH (20:09)
[2019-06-01] MEDS: AMITRIPTYLINE 75 MG TABLET PO SCH (20:09)
[2019-06-02] MEDS: HYDROmorphone 2 MG/1 ML VIAL IV PRN ×2 (02:26→06:42)
[2019-06-02] MEDS: PIPERACILLIN/TAZOBACTAM 3,375 MG in SODIUM CHLORIDE 0.9% 100 ML IV SCH (05:39)
[2019-06-02 07:45] VITALS: BP 142/79
[2019-06-02] MEDS: VERAPAMIL SR 240 MG TABLET PO SCH (09:25)
[2019-06-02] MEDS: carvediloL 12.5 MG TABLET PO SCH (09:25)
[2019-06-02] MEDS: VALSARTAN 160 MG TABLET PO SCH (09:25)
[2019-06-02] MEDS: PANTOPRAZOLE 40 MG TABLET PO SCH (09:25)
[2019-06-02] MEDS: hydroCHLOROthiazide 12.5 MG CAPSULE PO SCH (09:25)
[2019-06-02] MEDS: RANOLAZINE 500 MG TABLET PO SCH (09:25)
[2019-06-02] MEDS: ASPIRIN EC 81 MG TABLET PO SCH (09:25)
[2019-06-02] MEDS: DEXTROSE 5% LACTATED RINGERS 1,000 ML IV SCH ×2 (11:12)
== END 2019-06-02 11:09 | disposition home or self-care (01) | DRG 343 ==
LOC: N.EDINP 12:08 → N.ED 12:08 → N.3E 15:00
PROVIDERS: ADMIT Surgery; ATTEND Surgery

== ENCOUNTER 2019-07-16 10:42 | Inpatient (IN) ==
[2019-07-16 11:07] LABS: Basophils # 0.1 10*3/uL (0.0-0.2); Basophils % 0.6 % (0.0-0.8); Eosinophils # 0.1 10*3/uL (0.0-0.87); Eosinophils % 1.1 % (0.00-10.9); Hematocrit 46.2 VOL% (42.0-52.0); Hemoglobin 15.6 GM/DL (14.0-18.0); Immature Granulocytes % 0.6 %; Immature Granulocytes Absolute 0.08 #; Lymphocytes # 2.9 10*3/uL (1.4-4.0); Lymphocytes % 23.1 % (21.2-54.2); Mean Corpuscular HGB Conc 33.8 GM/DL (32-36); Mean Corpuscular Volume 92.8 FL (87-102); Mean Platelet Volume 9.1 FL (9.6-12.0); Monocytes % 7.9 % (1.7-12.7); Neutrophils % 66.7 % (38.7-73.9); Platelet Count 327 T/CUMM (130-400); Red Blood Count 4.98 MC/CUMM (3.8-5.5); Red Cell Distribution Width 12.8 % (9.3-17.3); White Blood Count 12.7 T/CUMM (4-12)
[2019-07-16] MEDS ORDERED: MORPHINE 4 MG/1 ML VIAL IV STA ×2 (11:09→13:10)
[2019-07-16] MEDS ORDERED: NITROGLYCERIN 2% OINT 1 INCH/GM PACK TOP STA (11:09)
[2019-07-16] MEDS ORDERED: METOPROLOL TARTRATE 5 MG/5 ML VIAL IV STA (11:09)
[2019-07-16] MEDS ORDERED: ONDANSETRON 4 MG/2 ML VIAL IM STA (11:24)
[2019-07-16 11:27] LABS: Alanine Aminotransferase 20 U/L (16-61); Albumin 3.9 G/DL (3.4-5.0); Alkaline Phosphatase 124 U/L (45-117); Aspartate Amino Transferase 14 U/L (0-37); Bilirubin,Total < 0.39 MG/DL (0.2-1.0); Blood Urea Nitrogen 7 MG/DL (7-18); Calcium 8.6 MG/DL (8.5-10.1); Estimated Glom Filtration Rate 126 ML/MIN; Glucose 99 MG/DL (74-106); Total Protein 7.5 G/DL (6.4-8.3)
[2019-07-16 11:31] LABS: PT Patient Result 10.7 SECS (9.6-12.2)
[2019-07-16] MEDS ORDERED: ONDANSETRON 4 MG/2 ML VIAL IV STA (11:45)
[2019-07-16] MEDS ORDERED: ALBUTEROL 2.5 MG/3 ML NEB RESP TX PRN (13:23)
[2019-07-16] MEDS ORDERED: ONDANSETRON 4 MG/2 ML VIAL IV PRN (13:23)
[2019-07-16] MEDS ORDERED: ACETAMINOPHEN 325 MG TABLET PO PRN (13:23)
[2019-07-16] MEDS ORDERED: NITROGLYCERIN DRIP 50 MG/250 ML BOTTLE IV PRN (13:30)
[2019-07-16] MEDS ORDERED: INFLUENZA VIRUS VACCINE 0.5 ML SYRINGE IM ONE (15:28)
[2019-07-16] MEDS: NICOTINE 14 MG/24 HR PATCH TRANSDERM SCH (16:40)
[2019-07-16] MEDS: MORPHINE 4 MG/1 ML VIAL IV PRN ×2 (16:40→20:54)
[2019-07-16] MEDS: ATORVASTATIN 40 MG TABLET PO SCH (20:55)
[2019-07-16] MEDS: TICAGRELOR 90 MG TABLET PO SCH (20:55)
[2019-07-16] MEDS: AMITRIPTYLINE 75 MG TABLET PO SCH (20:56)
[2019-07-16] MEDS: PANTOPRAZOLE 40 MG TABLET PO SCH (20:56)
[2019-07-16] MEDS ORDERED: ENOXAPARIN 40 MG/0.4 ML SYRINGE SUBCUT SCH (21:00)
[2019-07-17] MEDS: MORPHINE 4 MG/1 ML VIAL IV PRN ×5 (02:12→20:18)
[2019-07-17 05:08] LABS: Basophils # 0.1 10*3/uL (0.0-0.2); Basophils % 0.5 % (0.0-0.8); Eosinophils # 0.2 10*3/uL (0.0-0.87); Eosinophils % 1.3 % (0.00-10.9); Hematocrit 43.9 VOL% (42.0-52.0); Hemoglobin 14.3 GM/DL (14.0-18.0); Immature Granulocytes % 1.2 %; Immature Granulocytes Absolute 0.21 #; Lymphocytes # 2.9 10*3/uL (1.4-4.0); Lymphocytes % 16.6 % (21.2-54.2); Mean Corpuscular HGB Conc 32.6 GM/DL (32-36); Mean Corpuscular Volume 93.4 FL (87-102); Mean Platelet Volume 9.5 FL (9.6-12.0); Monocytes % 7.5 % (1.7-12.7); Neutrophils % 72.9 % (38.7-73.9); Platelet Count 314 T/CUMM (130-400); Red Cell Distribution Width 12.8 % (9.3-17.3); White Blood Count 17.5 T/CUMM (4-12)
[2019-07-17 05:46] LABS: Calcium 8.6 MG/DL (8.5-10.1)
[2019-07-17] MEDS: ENOXAPARIN 100 MG/ML SYRINGE SUBCUT SCH ×2 (07:44→21:24)
[2019-07-17] MEDS ORDERED: NITROGLYCERIN SL 0.4 MG TABLET SL PRN (07:44)
[2019-07-17] MEDS: METOPROLOL TARTRATE 25 MG TABLET PO SCH ×3 (07:57→21:23)
[2019-07-17] MEDS ORDERED: PANTOPRAZOLE 40 MG TABLET PO SCH ×2 (09:00)
[2019-07-17] MEDS: ASPIRIN EC 81 MG TABLET PO SCH (09:25)
[2019-07-17] MEDS: VALSARTAN 160 MG TABLET PO SCH (09:25)
[2019-07-17] MEDS: hydroCHLOROthiazide 25 MG TABLET PO SCH (09:25)
[2019-07-17] MEDS: PANTOPRAZOLE 40 MG TABLET PO SCH ×2 (09:26→21:24)
[2019-07-17] MEDS: NICOTINE 14 MG/24 HR PATCH TRANSDERM SCH (09:26)
[2019-07-17] MEDS: VERAPAMIL SR 240 MG TABLET PO SCH (09:27)
[2019-07-17] MEDS: TICAGRELOR 90 MG TABLET PO SCH ×2 (09:27→21:23)
[2019-07-17] MEDS: RANOLAZINE 500 MG TABLET PO SCH ×2 (09:28→21:23)
[2019-07-17] MEDS: NITROGLYCERIN 2% OINT 1 INCH/GM PACK TOP SCH (17:54)
[2019-07-17] MEDS: ATORVASTATIN 40 MG TABLET PO SCH (21:23)
[2019-07-17] MEDS: ISOSORBIDE MONONITRATE 60 MG TABLET PO SCH (21:24)
[2019-07-17] MEDS: AMITRIPTYLINE 75 MG TABLET PO SCH (21:24)
[2019-07-18] MEDS: NITROGLYCERIN 2% OINT 1 INCH/GM PACK TOP SCH ×3 (01:37→23:10)
[2019-07-18] MEDS: MORPHINE 4 MG/1 ML VIAL IV PRN ×4 (01:38→22:01)
[2019-07-18 08:22] LABS: Basophils # 0.1 10*3/uL (0.0-0.2); Basophils % 0.6 % (0.0-0.8); Eosinophils # 0.2 10*3/uL (0.0-0.87); Hematocrit 44.4 VOL% (42.0-52.0); Immature Granulocytes % 0.6 %; Immature Granulocytes Absolute 0.06 #; Lymphocytes # 2.3 10*3/uL (1.4-4.0); Lymphocytes % 23.7 % (21.2-54.2); Mean Corpuscular HGB Conc 33.8 GM/DL (32-36); Mean Corpuscular Volume 91.5 FL (87-102); Mean Platelet Volume 9.4 FL (9.6-12.0); Monocytes % 8.3 % (1.7-12.7); Neutrophils % 64.8 % (38.7-73.9); Platelet Count 293 T/CUMM (130-400); Red Blood Count 4.85 MC/CUMM (3.8-5.5); Red Cell Distribution Width 12.9 % (9.3-17.3); White Blood Count 9.5 T/CUMM (4-12)
[2019-07-18 08:36] LABS: Calcium 8.9 MG/DL (8.5-10.1); Osmolality,Calculated 266.2 MOS/KG (273-304)
[2019-07-18] MEDS: NICOTINE 14 MG/24 HR PATCH TRANSDERM SCH (10:16)
[2019-07-18] MEDS: ENOXAPARIN 100 MG/ML SYRINGE SUBCUT SCH (10:16)
[2019-07-18] MEDS ORDERED: MAGNESIUM SULF RIDER 2 GM in PREMIX 1 EACH IV PRN (12:52)
[2019-07-18] MEDS ORDERED: diphenhydrAMINE CAP 25 MG CAPSULE PO ONE (12:52)
[2019-07-18] MEDS ORDERED: DIAZEPAM 5 MG TABLET PO ONE (12:52)
[2019-07-18] MEDS ORDERED: POTASSIUM CHLORIDE RIDER 10 MEQ in PREMIX 1 EACH IV PRN (12:52)
[2019-07-18] MEDS: METOPROLOL TARTRATE 25 MG TABLET PO SCH ×2 (13:08→22:03)
[2019-07-18] MEDS: PANTOPRAZOLE 40 MG TABLET PO SCH ×2 (13:08→22:03)
[2019-07-18] MEDS: TICAGRELOR 90 MG TABLET PO SCH ×2 (13:08→22:03)
[2019-07-18] MEDS: ASPIRIN EC 81 MG TABLET PO SCH (13:08)
[2019-07-18 13:09] LABS: Apearance,Urine CLEAR (Clear); Bacteria,Urine Occasional /HPF (Few); Bilirubin,Urine Negative (Negative); Blood, Urine Negative (Negative); Glucose,Urine (UA) Negative (Negative); Ketones,Urine Negative (Negative); Mucus,Urine Occasional /LPF (Occasional); Nitrite,Urine Negative (Negative); Protein,Urine Negative; Squamous Epithelial Cell,Urine Occasional /HPF (0-10); Urine Color Yellow (Yellow); Urine Urobilinogen < 2.0 EU/DL (0.2-1.0)
[2019-07-18] MEDS: VERAPAMIL SR 240 MG TABLET PO SCH (13:09)
[2019-07-18] MEDS: VALSARTAN 160 MG TABLET PO SCH (13:09)
[2019-07-18] MEDS: SODIUM CHLORIDE 0.9% 1,000 ML IV SCH ×2 (13:12→22:04)
[2019-07-18] MEDS ORDERED: HEPARIN/NACL 0.9% 2 UNITS/ML 1,000 ML IV ONE (13:45)
[2019-07-18] MEDS ORDERED: LIDOCAINE 1% 20 ML VIAL ONE (14:35)
[2019-07-18] MEDS ORDERED: MIDAZOLAM 2 MG/2 ML VIAL ONE ×3 (14:36→15:02)
[2019-07-18] MEDS ORDERED: fentaNYL 100 MCG/2 ML VIAL ONE ×2 (14:36→15:02)
[2019-07-18] MEDS ORDERED: BIVALIRUDIN 250 MG VIAL IV ONE (15:13)
[2019-07-18] MEDS: hydroCHLOROthiazide 25 MG TABLET PO SCH (16:25)
[2019-07-18] MEDS: RANOLAZINE 500 MG TABLET PO SCH ×2 (16:25→22:02)
[2019-07-18] MEDS: AMITRIPTYLINE 75 MG TABLET PO SCH (22:02)
[2019-07-18] MEDS: ISOSORBIDE MONONITRATE 60 MG TABLET PO SCH (22:02)
[2019-07-18] MEDS: ATORVASTATIN 40 MG TABLET PO SCH (22:03)
[2019-07-19 05:09] LABS: Basophils # 0.1 10*3/uL (0.0-0.2); Basophils % 0.7 % (0.0-0.8); Eosinophils # 0.3 10*3/uL (0.0-0.87); Eosinophils % 2.4 % (0.00-10.9); Hemoglobin 14.4 GM/DL (14.0-18.0); Immature Granulocytes % 0.9 %; Lymphocytes # 2.9 10*3/uL (1.4-4.0); Lymphocytes % 25.4 % (21.2-54.2); Mean Corpuscular HGB Conc 33.5 GM/DL (32-36); Mean Corpuscular Volume 92.9 FL (87-102); Mean Platelet Volume 9.5 FL (9.6-12.0); Monocytes % 7.9 % (1.7-12.7); Neutrophils % 62.7 % (38.7-73.9); Platelet Count 316 T/CUMM (130-400); Red Blood Count 4.63 MC/CUMM (3.8-5.5); Red Cell Distribution Width 12.8 % (9.3-17.3); White Blood Count 11.2 T/CUMM (4-12)
[2019-07-19 05:35] LABS: Calcium 8.5 MG/DL (8.5-10.1); Osmolality,Calculated 271.8 MOS/KG (273-304)
[2019-07-19] MEDS: SODIUM CHLORIDE 0.9% 1,000 ML IV SCH (05:55)
[2019-07-19 08:42] VITALS: BP 143/86
[2019-07-19] MEDS: ASPIRIN EC 81 MG TABLET PO SCH (08:52)
[2019-07-19] MEDS: METOPROLOL TARTRATE 25 MG TABLET PO SCH (08:52)
[2019-07-19] MEDS: VALSARTAN 160 MG TABLET PO SCH (08:52)
[2019-07-19] MEDS: VERAPAMIL SR 240 MG TABLET PO SCH (08:52)
[2019-07-19] MEDS: hydroCHLOROthiazide 25 MG TABLET PO SCH (08:52)
[2019-07-19] MEDS: RANOLAZINE 500 MG TABLET PO SCH (08:52)
[2019-07-19] MEDS: TICAGRELOR 90 MG TABLET PO SCH (08:53)
[2019-07-19] MEDS: NICOTINE 14 MG/24 HR PATCH TRANSDERM SCH (08:53)
[2019-07-19] MEDS: PANTOPRAZOLE 40 MG TABLET PO SCH (08:53)
== END 2019-07-19 12:27 | disposition home or self-care (01) | DRG 247 ==
LOC: N.ED 10:42 → N.EDINP 13:25 → SUATTDRO 13:25 → N.ICU 14:14 → N.TELEN 07-17 18:48
PROVIDERS: ADMIT Internal Medicine; ATTEND Internal Medicine
PROC: CLCCHCL (ICD-10-PCS; 2019-07-18 15:45)

== ENCOUNTER 2020-05-06 16:31 | Observation (INO) ==
[2020-05-06] MEDS ORDERED: MORPHINE 4 MG/1 ML VIAL IV ONE ×2 (16:54→17:23)
[2020-05-06] MEDS ORDERED: ONDANSETRON 4 MG/2 ML VIAL IV STA (16:54)
[2020-05-06] MEDS ORDERED: NITROGLYCERIN SL 0.4 MG TABLET SL STA ×3 (16:54→17:56)
[2020-05-06] MEDS ORDERED: ASPIRIN CHEW 81 MG TABLET PO STA (16:54)
[2020-05-06] MEDS ORDERED: MORPHINE 4 MG/1 ML VIAL ONE (16:58)
[2020-05-06] MEDS ORDERED: ASPIRIN 325 MG TABLET ONE (16:58)
[2020-05-06 17:10] LABS: Basophils # 0.1 10*3/uL (0.0-0.2); Basophils % 0.8 % (0.0-0.8); Eosinophils # 0.3 10*3/uL (0.0-0.87); Eosinophils % 1.9 % (0.00-10.9); Hematocrit 49.9 VOL% (42.0-52.0); Immature Granulocytes % 0.6 %; Immature Granulocytes Absolute 0.09 #; Lymphocytes # 4.6 10*3/uL (1.4-4.0); Lymphocytes % 31.8 % (21.2-54.2); Mean Corpuscular HGB Conc 34.1 GM/DL (32-36); Mean Corpuscular Volume 93.1 FL (87-102); Mean Platelet Volume 9.2 FL (9.6-12.0); Monocytes % 7.3 % (1.7-12.7); Neutrophils % 57.6 % (38.7-73.9); Platelet Count 360 T/CUMM (130-400); Red Blood Count 5.36 MC/CUMM (3.8-5.5); Red Cell Distribution Width 12.9 % (9.3-17.3); White Blood Count 14.4 T/CUMM (4-12)
[2020-05-06 17:17] LABS: Troponin I < 0.015 NG/ML (0.00-0.045)
[2020-05-06 17:18] LABS: PT Patient Result 10.5 SECS (9.8-11.9); Partial Thromboplastin Time 36.4 SECS (23.9-33.8)
[2020-05-06 17:24] LABS: Alanine Aminotransferase 22 U/L (16-61); Albumin 3.9 G/DL (3.4-5.0); Alkaline Phosphatase 111 U/L (45-117); Amylase 60 U/L (25-115); Aspartate Amino Transferase 22 U/L (0-37); Bilirubin,Total < 0.39 MG/DL (0.2-1.0); Blood Urea Nitrogen 8 MG/DL (7-18); Calcium 9.3 MG/DL (8.5-10.1); Estimated Glom Filtration Rate 96 ML/MIN; Glucose 114 MG/DL (74-106); Osmolality,Calculated 268.1 MOS/KG (273-304); Total Protein 8.5 G/DL (6.4-8.3)
[2020-05-06 17:30] LABS: Eosinophils 1 % (0-10); Lymphocytes 31 % (20-55); Segmented Neutrophils 61 % (50-85); Total Cells Counted 100
[2020-05-06 17:31] LABS: Platelet Estimate Adequate; Reactive Lymphocytes 1+
[2020-05-06] MEDS ORDERED: ONDANSETRON 4 MG/2 ML VIAL IV PRN (18:02)
[2020-05-06] MEDS ORDERED: DEXTROSE 50% 25 GM/50 ML VIAL IV PRN (18:02)
[2020-05-06] MEDS ORDERED: GLUCAGON 1 MG VIAL IM PRN (18:02)
[2020-05-06] MEDS: MORPHINE 4 MG/1 ML VIAL IV PRN (19:50)
[2020-05-06] MEDS: METOPROLOL TARTRATE 25 MG TABLET PO SCH (20:36)
[2020-05-06] MEDS: RANOLAZINE 500 MG TABLET PO SCH (20:36)
[2020-05-06] MEDS: ATORVASTATIN 40 MG TABLET PO SCH (20:37)
[2020-05-06] MEDS: ISOSORBIDE MONONITRATE 60 MG TABLET PO SCH (20:37)
[2020-05-06] MEDS: TICAGRELOR 90 MG TABLET PO SCH (20:37)
[2020-05-06] MEDS ORDERED: ENOXAPARIN 40 MG/0.4 ML SYRINGE SUBCUT SCH (21:00)
[2020-05-07] MEDS: MORPHINE 4 MG/1 ML VIAL IV PRN ×5 (00:31→13:38)
[2020-05-07 06:51] LABS: Basophils # 0.2 10*3/uL (0.0-0.2); Basophils % 1.1 % (0.0-0.8); Eosinophils # 0.3 10*3/uL (0.0-0.87); Eosinophils % 2.3 % (0.00-10.9); Hematocrit 44.8 VOL% (42.0-52.0); Hemoglobin 15.1 GM/DL (14.0-18.0); Immature Granulocytes % 1.1 %; Immature Granulocytes Absolute 0.16 #; Lymphocytes # 3.1 10*3/uL (1.4-4.0); Lymphocytes % 21.4 % (21.2-54.2); Mean Corpuscular HGB Conc 33.7 GM/DL (32-36); Mean Corpuscular Volume 93.9 FL (87-102); Mean Platelet Volume 9.1 FL (9.6-12.0); Neutrophils % 66.1 % (38.7-73.9); Platelet Count 340 T/CUMM (130-400); Red Blood Count 4.77 MC/CUMM (3.8-5.5); Red Cell Distribution Width 12.9 % (9.3-17.3); White Blood Count 14.2 T/CUMM (4-12)
[2020-05-07 07:10] LABS: Calcium 8.5 MG/DL (8.5-10.1); Osmolality,Calculated 272.8 MOS/KG (273-304); Risk Ratio 7.57; Thyroid Stimulating Hormone 1.4 uIU/ml (0.358-3.74); VLDL CHOLESTEROL 131.4 MG/DL
[2020-05-07] MEDS ORDERED: INFLUENZA VIRUS VACCINE 0.5 ML SYRINGE IM ONE (09:00)
[2020-05-07] MEDS: METOPROLOL TARTRATE 25 MG TABLET PO SCH ×2 (09:15→21:17)
[2020-05-07] MEDS: TICAGRELOR 90 MG TABLET PO SCH ×2 (09:15→21:17)
[2020-05-07] MEDS: PANTOPRAZOLE 40 MG TABLET PO SCH (09:15)
[2020-05-07] MEDS: hydroCHLOROthiazide 25 MG TABLET PO SCH (09:16)
[2020-05-07] MEDS: RANOLAZINE 500 MG TABLET PO SCH ×2 (09:16→21:17)
[2020-05-07] MEDS: OLMESARTAN 20 MG TABLET PO SCH (09:16)
[2020-05-07] MEDS: ASPIRIN EC 81 MG TABLET PO SCH (09:16)
[2020-05-07] MEDS: VERAPAMIL SR 240 MG TABLET PO SCH (09:16)
[2020-05-07] MEDS ORDERED: ACETAMINOPHEN 325 MG TABLET PO PRN (13:51)
[2020-05-07] MEDS ORDERED: diphenhydrAMINE CAP 25 MG CAPSULE PO ONE (14:36)
[2020-05-07] MEDS ORDERED: MAGNESIUM SULF RIDER 2 GM in PREMIX 1 EACH IV PRN ×2 (14:36→15:09)
[2020-05-07] MEDS ORDERED: DIAZEPAM 5 MG TABLET PO ONE (14:36)
[2020-05-07] MEDS ORDERED: POTASSIUM CHLORIDE RIDER 10 MEQ in PREMIX 1 EACH IV PRN ×2 (14:36→15:09)
[2020-05-07] MEDS ORDERED: SODIUM CHLORIDE 0.45% 1,000 ML IV SCH (15:00)
[2020-05-07] MEDS ORDERED: MIDAZOLAM 2 MG/2 ML VIAL ONE ×2 (15:15→15:50)
[2020-05-07] MEDS ORDERED: diphenhydrAMINE 50 MG/1 ML VIAL ONE (15:15)
[2020-05-07] MEDS ORDERED: fentaNYL 100 MCG/2 ML VIAL ONE (15:15)
[2020-05-07] MEDS ORDERED: HEPARIN 5,000 UNIT/1 ML VIAL ONE (15:33)
[2020-05-07] MEDS ORDERED: TICAGRELOR 90 MG TABLET ONE (16:32)
[2020-05-07] MEDS ORDERED: SODIUM CHLORIDE 0.9% 1,000 ML IV SCH (17:30)
[2020-05-07 18:09] LABS: Troponin I < 0.015 NG/ML (0.00-0.045)
[2020-05-07] MEDS ORDERED: NICOTINE 21 MG/24 HR PATCH TRANSDERM PRN (19:52)
[2020-05-07] MEDS: ISOSORBIDE MONONITRATE 60 MG TABLET PO SCH (21:17)
[2020-05-07] MEDS: ATORVASTATIN 40 MG TABLET PO SCH (21:17)
[2020-05-08 02:12] LABS: Basophils # 0.1 10*3/uL (0.0-0.2); Basophils % 0.6 % (0.0-0.8); Eosinophils # 0.3 10*3/uL (0.0-0.87); Eosinophils % 1.8 % (0.00-10.9); Hematocrit 44.4 VOL% (42.0-52.0); Hemoglobin 15.1 GM/DL (14.0-18.0); Immature Granulocytes % 1.1 %; Immature Granulocytes Absolute 0.16 #; Lymphocytes # 3.4 10*3/uL (1.4-4.0); Lymphocytes % 24.1 % (21.2-54.2); Mean Corpuscular Volume 92.7 FL (87-102); Mean Platelet Volume 8.7 FL (9.6-12.0); Monocytes % 8.9 % (1.7-12.7); Neutrophils % 63.5 % (38.7-73.9); Platelet Count 315 T/CUMM (130-400); Red Blood Count 4.79 MC/CUMM (3.8-5.5); White Blood Count 14.2 T/CUMM (4-12)
[2020-05-08 02:44] LABS: Calcium 8.4 MG/DL (8.5-10.1); Osmolality,Calculated 273.8 MOS/KG (273-304)
[2020-05-08 02:48] LABS: Troponin I 0.044 NG/ML (0.00-0.045)
[2020-05-08 07:08] LABS: Bilirubin,Urine Negative (Negative); Blood, Urine Negative (Negative); Glucose,Urine (UA) Negative (Negative); Ketones,Urine Negative (Negative); Mucus,Urine Occasional /LPF (Occasional); Nitrite,Urine Negative (Negative); Protein,Urine Negative; RBC,Urine <1 /HPF (0-4); Urine Appearance CLEAR (Clear); Urine Color Yellow (Yellow); Urine Specific Gravity 1.015 (1.001-1.035); Urine Urobilinogen < 2.0 EU/DL (0.2-1.0); WBC,Urine <1 /HPF (0-6)
[2020-05-08] MEDS ORDERED: buPROPion 75 MG TABLET PO SCH (09:00)
[2020-05-08] MEDS ORDERED: FENOFIBRATE 145 MG TABLET PO SCH (09:00)
[2020-05-08] MEDS ORDERED: cilostazoL 50 MG TABLET PO SCH (09:00)
[2020-05-08] MEDS: ASPIRIN EC 81 MG TABLET PO SCH (09:28)
[2020-05-08] MEDS: VERAPAMIL SR 240 MG TABLET PO SCH (09:28)
[2020-05-08] MEDS: hydroCHLOROthiazide 25 MG TABLET PO SCH (09:28)
[2020-05-08] MEDS: METOPROLOL TARTRATE 25 MG TABLET PO SCH (09:28)
[2020-05-08] MEDS: TICAGRELOR 90 MG TABLET PO SCH (09:29)
[2020-05-08] MEDS: OLMESARTAN 20 MG TABLET PO SCH (09:29)
[2020-05-08] MEDS: PANTOPRAZOLE 40 MG TABLET PO SCH (09:29)
[2020-05-08] MEDS: RANOLAZINE 500 MG TABLET PO SCH (09:29)
[2020-05-08 09:57] LABS: Troponin I 0.224 NG/ML (0.00-0.045)
[2020-05-08 11:53] VITALS: BP 128/75
[2020-05-08] MEDS ORDERED: ROSUVASTATIN 20 MG TABLET PO SCH (21:00)
[2020-06-01] MEDS ORDERED: ASPIRIN CHEW 81 MG TABLET PO SCH (09:00)
[2020-06-01] MEDS ORDERED: TICAGRELOR 90 MG TABLET PO SCH (09:00)
[2020-06-01] MEDS ORDERED: VALSARTAN/HCTZ 160-12.5 MG TABLET PO SCH (09:00)
[2020-06-01] MEDS ORDERED: VERAPAMIL SR 240 MG TABLET PO SCH (09:00)
[2020-06-01] MEDS ORDERED: cilostazoL 50 MG TABLET PO SCH (09:00)
[2020-06-01] MEDS ORDERED: buPROPion 75 MG TABLET PO SCH (09:00)
[2020-06-01] MEDS ORDERED: ISOSORBIDE MONONITRATE 60 MG TABLET PO SCH (09:00)
[2020-06-01] MEDS ORDERED: METOPROLOL TARTRATE 25 MG TABLET PO SCH (09:00)
[2020-06-01] MEDS ORDERED: HEPARIN/NACL 0.9% 2 UNITS/ML 1,000 ML IV ONE (14:01)
[2020-06-01] MEDS ORDERED: LIDOCAINE 1% 20 ML VIAL ONE (14:01)
== END 2020-05-08 13:00 | disposition home or self-care (01) ==
LOC: N.ED 16:31 → N.EDINP 16:31 → N.TELEN 18:25
PROVIDERS: ADMIT Internal Medicine; ATTEND Internal Medicine
PROC: CLCCHCL (ICD-10-PCS; 2020-05-07 16:15)

== ENCOUNTER 2020-05-31 22:44 | Observation (INO) ==
[2020-05-31] MEDS ORDERED: ASPIRIN 325 MG TABLET PO STA (22:58)
[2020-05-31] MEDS ORDERED: NITROGLYCERIN SL 0.4 MG TABLET SL STA (23:06)
[2020-05-31 23:12] LABS: Basophils # 0.2 10*3/uL (0.0-0.2); Eosinophils # 0.4 10*3/uL (0.0-0.87); Eosinophils % 2.1 % (0.00-10.9); Hematocrit 45.8 VOL% (42.0-52.0); Hemoglobin 15.5 GM/DL (14.0-18.0); Immature Granulocytes % 0.7 %; Immature Granulocytes Absolute 0.13 #; Lymphocytes # 3.9 10*3/uL (1.4-4.0); Lymphocytes % 20.9 % (21.2-54.2); Mean Corpuscular HGB Conc 33.8 GM/DL (32-36); Mean Corpuscular Volume 93.1 FL (87-102); Mean Platelet Volume 9.2 FL (9.6-12.0); Monocytes % 6.8 % (1.7-12.7); Neutrophils % 68.5 % (38.7-73.9); Platelet Count 313 T/CUMM (130-400); Red Blood Count 4.92 MC/CUMM (3.8-5.5); Red Cell Distribution Width 13.1 % (9.3-17.3); White Blood Count 18.6 T/CUMM (4-12)
[2020-05-31] MEDS ORDERED: NITROGLYCERIN 2% OINT 1 INCH/GM PACK TOP STA (23:13)
[2020-05-31] MEDS ORDERED: MORPHINE 4 MG/1 ML VIAL IV STA (23:13)
[2020-05-31 23:31] LABS: Alanine Aminotransferase 23 U/L (16-61); Albumin 3.7 G/DL (3.4-5.0); Alkaline Phosphatase 97 U/L (45-117); Aspartate Amino Transferase 12 U/L (0-37); Bilirubin,Total < 0.39 MG/DL (0.2-1.0); Blood Urea Nitrogen 12 MG/DL (7-18); Estimated Glom Filtration Rate 125 ML/MIN; Glucose 121 MG/DL (74-106); Osmolality,Calculated 279.4 MOS/KG (273-304); Total Protein 7.3 G/DL (6.4-8.3)
[2020-06-01 00:17] LABS: PT Patient Result 10.3 SECS (9.8-11.9)
[2020-06-01] MEDS ORDERED: GLUCAGON 1 MG VIAL IM PRN (00:42)
[2020-06-01] MEDS ORDERED: DOCUSATE SODIUM 100 MG CAPSULE PO PRN (00:42)
[2020-06-01] MEDS ORDERED: DEXTROSE 50% 25 GM/50 ML VIAL IV PRN (00:42)
[2020-06-01] MEDS ORDERED: BISACODYL 5 MG TABLET PO PRN (00:42)
[2020-06-01] MEDS: MORPHINE 4 MG/1 ML VIAL IV PRN ×6 (01:07→23:09)
[2020-06-01] MEDS ORDERED: NICOTINE 21 MG/24 HR PATCH TRANSDERM PRN (01:59)
[2020-06-01] MEDS: cefTRIAXone 1,000 MG VIAL IV SCH (02:50)
[2020-06-01] MEDS: ONDANSETRON 4 MG/2 ML VIAL IV PRN ×2 (02:58→09:53)
[2020-06-01] MEDS ORDERED: diphenhydrAMINE CAP 25 MG CAPSULE PO ONE ×2 (07:55→14:30)
[2020-06-01] MEDS ORDERED: DIAZEPAM 5 MG TABLET PO ONE ×2 (07:55→14:30)
[2020-06-01] MEDS ORDERED: SODIUM CHLORIDE 0.45% 1,000 ML IV SCH (08:00)
[2020-06-01] MEDS: DOXYCYCLINE HYCLATE INJ 100 MG in SODIUM CHLORIDE 0.9% 100 ML IV SCH ×2 (08:33→21:36)
[2020-06-01] MEDS: ASPIRIN CHEW 81 MG TABLET PO SCH (08:34)
[2020-06-01] MEDS ORDERED: ENOXAPARIN 40 MG/0.4 ML SYRINGE SUBCUT SCH (09:00)
[2020-06-01] MEDS ORDERED: ENOXAPARIN 100 MG/ML SYRINGE SUBCUT SCH (09:00)
[2020-06-01] MEDS: METOPROLOL TARTRATE 25 MG TABLET PO SCH ×2 (09:50→21:38)
[2020-06-01] MEDS: hydroCHLOROthiazide 12.5 MG CAPSULE PO SCH (09:50)
[2020-06-01] MEDS: RANOLAZINE 500 MG TABLET PO SCH ×2 (09:50→21:37)
[2020-06-01] MEDS: VERAPAMIL SR 240 MG TABLET PO SCH (09:50)
[2020-06-01] MEDS: OLMESARTAN 20 MG TABLET PO SCH (09:51)
[2020-06-01] MEDS: TICAGRELOR 90 MG TABLET PO SCH ×2 (09:51→21:37)
[2020-06-01] MEDS ORDERED: diphenhydrAMINE CAP 25 MG CAPSULE ONE (14:10)
[2020-06-01] MEDS ORDERED: fentaNYL 100 MCG/2 ML VIAL ONE ×2 (14:25→14:50)
[2020-06-01] MEDS ORDERED: MIDAZOLAM 2 MG/2 ML VIAL ONE ×3 (14:25→14:50)
[2020-06-01] MEDS ORDERED: BIVALIRUDIN 250 MG VIAL IV ONE (14:58)
[2020-06-01] MEDS ORDERED: MORPHINE 10 MG/1 ML VIAL ONE (15:31)
[2020-06-01] MEDS ORDERED: hydrALAZINE 20 MG/1 ML VIAL ONE (15:33)
[2020-06-01] MEDS ORDERED: NITROGLYCERIN DRIP 50 MG/250 ML BOTTLE IV ONE (15:36)
[2020-06-01] MEDS ORDERED: METOPROLOL TARTRATE 5 MG/5 ML VIAL IV ONE (15:40)
[2020-06-01] MEDS ORDERED: NITROGLYCERIN SL 0.4 MG TABLET SL PRN (16:03)
[2020-06-01] MEDS ORDERED: ACETAMINOPHEN 325 MG TABLET PO PRN (16:03)
[2020-06-01] MEDS ORDERED: ONDANSETRON 4 MG/2 ML VIAL ONE (16:11)
[2020-06-01] MEDS ORDERED: ONDANSETRON 4 MG/2 ML VIAL IV ONE (16:27)
[2020-06-01] MEDS ORDERED: ROSUVASTATIN 20 MG TABLET PO SCH (21:00)
[2020-06-01] MEDS ORDERED: ISOSORBIDE MONONITRATE 60 MG TABLET PO SCH (21:00)
[2020-06-01] MEDS: cilostazoL 50 MG TABLET PO SCH (21:38)
[2020-06-02] MEDS: cefTRIAXone 1,000 MG VIAL IV SCH (02:27)
[2020-06-02] MEDS: MORPHINE 4 MG/1 ML VIAL IV PRN (03:41)
[2020-06-02 06:04] LABS: Basophils # 0.1 10*3/uL (0.0-0.2); Basophils % 0.5 % (0.0-0.8); Eosinophils # 0.2 10*3/uL (0.0-0.87); Eosinophils % 1.4 % (0.00-10.9); Hematocrit 44.9 VOL% (42.0-52.0); Hemoglobin 15.5 GM/DL (14.0-18.0); Immature Granulocytes % 0.6 %; Immature Granulocytes Absolute 0.08 #; Lymphocytes % 22.1 % (21.2-54.2); Mean Corpuscular HGB Conc 34.5 GM/DL (32-36); Mean Corpuscular Volume 91.8 FL (87-102); Mean Platelet Volume 9.1 FL (9.6-12.0); Monocytes % 7.1 % (1.7-12.7); Neutrophils % 68.3 % (38.7-73.9); Platelet Count 332 T/CUMM (130-400); Red Blood Count 4.89 MC/CUMM (3.8-5.5); White Blood Count 13.5 T/CUMM (4-12)
[2020-06-02 06:18] LABS: Calcium 8.9 MG/DL (8.5-10.1)
[2020-06-02] MEDS ORDERED: FENOFIBRATE 145 MG TABLET PO SCH (09:00)
[2020-06-02] MEDS ORDERED: ENOXAPARIN 40 MG/0.4 ML SYRINGE SUBCUT SCH (10:04)
[2020-06-02] MEDS: DOXYCYCLINE HYCLATE INJ 100 MG in SODIUM CHLORIDE 0.9% 100 ML IV SCH (10:56)
[2020-06-02] MEDS: RANOLAZINE 500 MG TABLET PO SCH (10:57)
[2020-06-02] MEDS: ASPIRIN CHEW 81 MG TABLET PO SCH (10:57)
[2020-06-02] MEDS: OLMESARTAN 20 MG TABLET PO SCH (10:58)
[2020-06-02] MEDS: VERAPAMIL SR 240 MG TABLET PO SCH (10:58)
[2020-06-02] MEDS: hydroCHLOROthiazide 12.5 MG CAPSULE PO SCH (10:58)
[2020-06-02] MEDS: cilostazoL 50 MG TABLET PO SCH (10:59)
[2020-06-02] MEDS: TICAGRELOR 90 MG TABLET PO SCH (10:59)
[2020-06-02] MEDS: METOPROLOL TARTRATE 25 MG TABLET PO SCH (10:59)
[2020-06-02 12:14] VITALS: BP 134/74
[2020-06-02] MEDS ORDERED: POTASSIUM CHLORIDE 20 MEQ TABLET PO ONE (12:36)
== END 2020-06-02 12:16 | disposition home or self-care (01) ==
LOC: EDUNIT# → EDBD → N.EDINP 22:44 → N.ED 22:44 → N.TELEN 06-01 01:42
PROVIDERS: ADMIT Emergency Medicine; ATTEND Emergency Medicine
PROC: CLCCHCL (ICD-10-PCS; 2020-06-01 14:45)

== ENCOUNTER 2020-06-04 11:42 | Observation (INO) ==
[2020-06-04 12:10] LABS: Basophils # 0.1 10*3/uL (0.0-0.2); Basophils % 0.8 % (0.0-0.8); Eosinophils # 0.2 10*3/uL (0.0-0.87); Eosinophils % 1.3 % (0.00-10.9); Hematocrit 50.3 VOL% (42.0-52.0); Hemoglobin 17.3 GM/DL (14.0-18.0); Immature Granulocytes % 0.5 %; Immature Granulocytes Absolute 0.06 #; Lymphocytes # 2.9 10*3/uL (1.4-4.0); Lymphocytes % 22.8 % (21.2-54.2); Mean Corpuscular HGB Conc 34.4 GM/DL (32-36); Mean Corpuscular Volume 93.3 FL (87-102); Mean Platelet Volume 9.2 FL (9.6-12.0); Monocytes % 5.9 % (1.7-12.7); Neutrophils % 68.7 % (38.7-73.9); Platelet Count 339 T/CUMM (130-400); Red Blood Count 5.39 MC/CUMM (3.8-5.5); White Blood Count 12.7 T/CUMM (4-12)
[2020-06-04 12:17] LABS: PT Patient Result 10.9 SECS (9.8-11.9); Partial Thromboplastin Time 33.9 SECS (23.9-33.8)
[2020-06-04 12:31] LABS: Albumin 4.5 G/DL (3.4-5.0); Bilirubin,Total 1.1 MG/DL (0.2-1.0); Calcium 9.1 MG/DL (8.5-10.1); Osmolality,Calculated 274.7 MOS/KG (273-304); Total Protein 8.4 G/DL (6.4-8.3)
[2020-06-04] MEDS ORDERED: ENOXAPARIN 100 MG/ML SYRINGE SUBCUT STA (13:28)
[2020-06-04] MEDS ORDERED: NITROGLYCERIN SL 0.4 MG TABLET SL ONE (13:29)
[2020-06-04] MEDS ORDERED: ENOXAPARIN 100 MG/ML SYRINGE SUBCUT ONE (13:30)
[2020-06-04] MEDS: NITROGLYCERIN SL 0.4 MG TABLET SL PRN ×2 (13:40→13:50)
[2020-06-04] MEDS ORDERED: ONDANSETRON 4 MG/2 ML VIAL IV PRN (13:43)
[2020-06-04] MEDS ORDERED: MAGNESIUM SULF RIDER 2 GM in PREMIX 1 EACH IV PRN (13:43)
[2020-06-04] MEDS ORDERED: diphenhydrAMINE CAP 25 MG CAPSULE PO PRN (13:43)
[2020-06-04] MEDS ORDERED: SIMETHICONE CHEW 125 MG TABLET PO PRN (13:43)
[2020-06-04] MEDS ORDERED: MAGNESIUM SULF RIDER 4 GM in PREMIX 1 EACH IV PRN (13:43)
[2020-06-04] MEDS ORDERED: NITROGLYCERIN SL 0.4 MG TABLET SL PRN (13:47)
[2020-06-04] MEDS ORDERED: METOPROLOL TARTRATE 25 MG TABLET PO STA (13:49)
[2020-06-04] MEDS ORDERED: SODIUM CHLORIDE 0.45% 1,000 ML IV SCH (14:00)
[2020-06-04] MEDS ORDERED: FUROSEMIDE 20 MG/2 ML VIAL IV ONE (15:22)
[2020-06-04] MEDS ORDERED: NITROGLYCERIN 2% OINT 1 INCH/GM PACK TOP STA (15:45)
[2020-06-04] MEDS ORDERED: METOPROLOL TARTRATE 5 MG/5 ML VIAL IV STA (15:45)
[2020-06-04] MEDS ORDERED: NITROGLYCERIN 2% OINT 1 INCH/GM PACK TOP ONE (15:46)
[2020-06-04] MEDS ORDERED: FUROSEMIDE 40 MG/4 ML VIAL ONE (16:03)
[2020-06-04] MEDS ORDERED: MORPHINE 4 MG/1 ML VIAL IV PRN (16:19)
[2020-06-04] MEDS ORDERED: hydrALAZINE 20 MG/1 ML VIAL IV PRN (16:59)
[2020-06-04] MEDS ORDERED: MORPHINE 4 MG/1 ML VIAL IV STA (17:00)
[2020-06-04] MEDS ORDERED: KETOROLAC 30 MG/1 ML VIAL IV ONE (17:43)
[2020-06-04] MEDS ORDERED: KETOROLAC 30 MG/1 ML VIAL IV STA (19:51)
[2020-06-04] MEDS ORDERED: NITROGLYCERIN DRIP 50 MG/250 ML BOTTLE IV PRN (20:53)
[2020-06-04] MEDS ORDERED: AMITRIPTYLINE 75 MG TABLET PO SCH (21:00)
[2020-06-04] MEDS ORDERED: ROSUVASTATIN 20 MG TABLET PO SCH (21:00)
[2020-06-04] MEDS ORDERED: cilostazoL 50 MG TABLET PO SCH (21:00)
[2020-06-04] MEDS ORDERED: ISOSORBIDE MONONITRATE 60 MG TABLET PO SCH (21:00)
[2020-06-04] MEDS: RANOLAZINE 500 MG TABLET PO SCH (21:33)
[2020-06-04] MEDS: TICAGRELOR 90 MG TABLET PO SCH (21:33)
[2020-06-04] MEDS: buPROPion 75 MG TABLET PO SCH (21:33)
[2020-06-04] MEDS: METOPROLOL TARTRATE 25 MG TABLET PO SCH (21:33)
[2020-06-04] MEDS: PANTOPRAZOLE 40 MG TABLET PO SCH (21:33)
[2020-06-05 06:28] LABS: Basophils # 0.1 10*3/uL (0.0-0.2); Basophils % 0.9 % (0.0-0.8); Eosinophils # 0.4 10*3/uL (0.0-0.87); Eosinophils % 2.9 % (0.00-10.9); Hematocrit 45.5 VOL% (42.0-52.0); Hemoglobin 15.5 GM/DL (14.0-18.0); Immature Granulocytes % 0.7 %; Immature Granulocytes Absolute 0.09 #; Lymphocytes % 30.5 % (21.2-54.2); Mean Corpuscular HGB Conc 34.1 GM/DL (32-36); Mean Corpuscular Volume 92.9 FL (87-102); Mean Platelet Volume 9.2 FL (9.6-12.0); Platelet Count 319 T/CUMM (130-400); White Blood Count 13.3 T/CUMM (4-12)
[2020-06-05 06:52] LABS: Atypical Lymphocytes Few; Eosinophils 6 % (0-10); Hypochromasia Slight; Lymphocytes 31 % (20-55); Platelet Estimate Adequate; Segmented Neutrophils 53 % (50-85); Total Cells Counted 100
[2020-06-05 06:54] LABS: Albumin 3.6 G/DL (3.4-5.0); Bilirubin,Total 0.9 MG/DL (0.2-1.0); Osmolality,Calculated 278.5 MOS/KG (273-304); Total Protein 7.5 G/DL (6.4-8.3)
[2020-06-05 08:35] VITALS: BP 124/77
[2020-06-05] MEDS: buPROPion 75 MG TABLET PO SCH (08:40)
[2020-06-05] MEDS: TICAGRELOR 90 MG TABLET PO SCH (08:40)
[2020-06-05] MEDS: PANTOPRAZOLE 40 MG TABLET PO SCH (08:40)
[2020-06-05] MEDS: METOPROLOL TARTRATE 25 MG TABLET PO SCH (08:40)
[2020-06-05] MEDS: RANOLAZINE 500 MG TABLET PO SCH (08:40)
[2020-06-05 08:47] LABS: Barbiturates Screen,Urine Negative (Negative); Benzodiazepines Screen,Urine Positive (Negative); Cannabinoid Screen,Urine Negative (Negative); Opiate Screen,Urine Positive (Negative); Phencyclidine Screen,Urine Negative (Negative)
[2020-06-05] MEDS ORDERED: VERAPAMIL SR 240 MG TABLET PO SCH (09:00)
[2020-06-05] MEDS ORDERED: ASPIRIN EC 81 MG TABLET PO SCH (09:00)
[2020-06-05] MEDS ORDERED: PANTOPRAZOLE 40 MG TABLET PO SCH (09:00)
[2020-06-05] MEDS ORDERED: FENOFIBRATE 145 MG TABLET PO SCH (09:00)
[2020-06-05] MEDS ORDERED: hydroCHLOROthiazide 25 MG TABLET PO SCH (09:00)
[2020-06-05] MEDS ORDERED: OLMESARTAN 20 MG TABLET PO SCH (09:00)
== END 2020-06-05 14:25 | disposition home or self-care (01) ==
LOC: N.ED 11:42 → N.EDINP 11:42 → N.TELES 21:16
PROVIDERS: ADMIT Internal Medicine Cardiovascular Disease; ATTEND Internal Medicine Cardiovascular Disease

== ENCOUNTER 2021-08-17 16:54 | Observation (INO) ==
[2021-08-17] MEDS ORDERED: NITROGLYCERIN 2% OINT 1 INCH/GM PACK TOP STA (17:12)
[2021-08-17] MEDS ORDERED: MORPHINE 4 MG/1 ML VIAL IV STA ×2 (17:12→17:52)
[2021-08-17] MEDS ORDERED: NITROGLYCERIN 2% OINT 1 INCH/GM PACK TOP ONE (17:13)
[2021-08-17] MEDS ORDERED: MORPHINE 4 MG/1 ML VIAL ONE (17:13)
[2021-08-17 17:26] LABS: Basophils # 0.1 10*3/uL (0.0-0.2); Basophils % 0.6 % (0.0-0.8); Eosinophils # 0.5 10*3/uL (0.0-0.87); Eosinophils % 3.8 % (0.00-10.9); Hematocrit 43.5 VOL% (42.0-52.0); Hemoglobin 13.9 GM/DL (14.0-18.0); Immature Granulocytes % 0.7 %; Immature Granulocytes Absolute 0.09 #; Lymphocytes % 22.2 % (21.2-54.2); Mean Corpuscular Volume 95.4 FL (87-102); Mean Platelet Volume 9.4 FL (9.6-12.0); Monocytes % 7.8 % (1.7-12.7); Neutrophils % 64.9 % (38.7-73.9); Platelet Count 395 T/CUMM (130-400); Red Blood Count 4.56 MC/CUMM (3.8-5.5); Red Cell Distribution Width 13.6 % (9.3-17.3); White Blood Count 13.7 T/CUMM (4-12)
[2021-08-17] MEDS ORDERED: LABETALOL 20 MG/4 ML SYRINGE IV STA (17:51)
[2021-08-17] MEDS ORDERED: LABETALOL 20 MG/4 ML SYRINGE IV ONE (17:52)
[2021-08-17] MEDS ORDERED: ONDANSETRON 4 MG/2 ML VIAL ONE (17:52)
[2021-08-17] MEDS ORDERED: ONDANSETRON 4 MG/2 ML VIAL IV STA (17:52)
[2021-08-17 17:56] LABS: Alanine Aminotransferase 19 U/L (16-61); Albumin 3.4 G/DL (3.4-5.0); Alkaline Phosphatase 74 U/L (45-117); Aspartate Amino Transferase 16 U/L (0-37); Bilirubin,Total < 0.39 MG/DL (0.20-1.00); Blood Urea Nitrogen 8 MG/DL (7-18); Carbon Dioxide 26 MMOL/L (21-32); Estimated Glom Filtration Rate 118 ML/MIN; Glucose 101 MG/DL (74-106); Osmolality,Calculated 272.7 MOS/KG (273-304); Potassium 3.7 MMOL/L (3.5-5.1); Sodium 138 MMOL/L (136-145)
[2021-08-17] MEDS ORDERED: cefTRIAXone 1,000 MG in SODIUM CHLORIDE 0.9% 100 ML IV STA (17:57)
[2021-08-17] MEDS ORDERED: AZITHROMYCIN INJ 500 MG in SODIUM CHLORIDE 0.9% 250 ML IV STA (17:57)
[2021-08-17] MEDS ORDERED: fentaNYL 100 MCG/2 ML VIAL IV STA (19:31)
[2021-08-17] MEDS ORDERED: ZALEPLON 5 MG CAPSULE PO PRN (19:38)
[2021-08-17] MEDS ORDERED: DOCUSATE SODIUM 100 MG CAPSULE PO PRN (19:38)
[2021-08-17] MEDS ORDERED: LACTULOSE 20 GM/30 ML UDCUP PO PRN (19:38)
[2021-08-17] MEDS ORDERED: NICOTINE 21 MG/24 HR PATCH TRANSDERM PRN (19:38)
[2021-08-17] MEDS ORDERED: SIMETHICONE CHEW 125 MG TABLET PO PRN (19:38)
[2021-08-17] MEDS ORDERED: hydrALAZINE 20 MG/1 ML VIAL IV PRN (19:38)
[2021-08-17] MEDS ORDERED: ALUMINUM/MAGNES/SIMETH MAX STR 30 ML UDCUP PO PRN (19:38)
[2021-08-17] MEDS ORDERED: NITROGLYCERIN SL 0.4 MG TABLET SL PRN (19:49)
[2021-08-17] MEDS: guaiFENesin/DM ER 600-30 MG TABLET PO SCH (20:57)
[2021-08-17] MEDS: ENOXAPARIN 40 MG/0.4 ML SYRINGE SUBCUT SCH (20:57)
[2021-08-17] MEDS: NICOTINE 21 MG/24 HR PATCH TRANSDERM SCH (20:57)
[2021-08-17] MEDS: FAMOTIDINE 20 MG TABLET PO SCH (22:33)
[2021-08-17] MEDS: TICAGRELOR 90 MG TABLET PO SCH (22:33)
[2021-08-17] MEDS: ROSUVASTATIN 20 MG TABLET PO SCH (22:33)
[2021-08-17] MEDS: buPROPion SR 100 MG TABLET PO SCH (22:33)
[2021-08-17] MEDS: METOPROLOL TARTRATE 25 MG TABLET PO SCH (22:33)
[2021-08-17] MEDS: RANOLAZINE 500 MG TABLET PO SCH (22:33)
[2021-08-17] MEDS: GABAPENTIN 400 MG CAPSULE PO SCH (22:34)
[2021-08-17] MEDS: ISOSORBIDE MONONITRATE 30 MG TABLET PO SCH (22:34)
[2021-08-17] MEDS: MORPHINE 4 MG/1 ML VIAL IV PRN (22:47)
[2021-08-18] MEDS: ALBUTEROL/IPRATROPIUM 3 ML NEB RESP TX SCH ×4 (00:35→19:37)
[2021-08-18] MEDS: MORPHINE 4 MG/1 ML VIAL IV PRN ×4 (04:15→20:36)
[2021-08-18 05:12] LABS: Basophils # 0.1 10*3/uL (0.0-0.2); Basophils % 0.9 % (0.0-0.8); Eosinophils # 0.5 10*3/uL (0.0-0.87); Eosinophils % 4.4 % (0.00-10.9); Hematocrit 42.3 VOL% (42.0-52.0); Hemoglobin 13.6 GM/DL (14.0-18.0); Immature Granulocytes % 0.8 %; Lymphocytes # 3.3 10*3/uL (1.4-4.0); Lymphocytes % 26.7 % (21.2-54.2); Mean Corpuscular HGB Conc 32.2 GM/DL (32-36); Mean Corpuscular Volume 96.1 FL (87-102); Mean Platelet Volume 9.6 FL (9.6-12.0); Monocytes % 7.6 % (1.7-12.7); Neutrophils % 59.6 % (38.7-73.9); Platelet Count 352 T/CUMM (130-400); Red Cell Distribution Width 13.6 % (9.3-17.3); White Blood Count 12.2 T/CUMM (4-12)
[2021-08-18 05:44] LABS: Calcium 8.5 MG/DL (8.5-10.1); Osmolality,Calculated 279.3 MOS/KG (273-304); Thyroid Stimulating Hormone 1.9 uIU/ml (0.358-3.74); VLDL Cholesterol 37.4 MG/DL
[2021-08-18] MEDS ORDERED: PANTOPRAZOLE 40 MG TABLET PO SCH (09:00)
[2021-08-18] MEDS: buPROPion SR 100 MG TABLET PO SCH ×2 (09:00→20:38)
[2021-08-18] MEDS ORDERED: ASPIRIN EC 325 MG TABLET PO SCH (09:00)
[2021-08-18] MEDS ORDERED: LEVOFLOXACIN INJ 750 MG/150 ML PREMIX IV SCH (09:00)
[2021-08-18] MEDS: NICOTINE 21 MG/24 HR PATCH TRANSDERM SCH (09:01)
[2021-08-18] MEDS: FAMOTIDINE 20 MG TABLET PO SCH ×2 (09:01→20:38)
[2021-08-18] MEDS: ASPIRIN EC 81 MG TABLET PO SCH (09:01)
[2021-08-18] MEDS: guaiFENesin/DM ER 600-30 MG TABLET PO SCH ×2 (09:01→20:38)
[2021-08-18] MEDS: TICAGRELOR 90 MG TABLET PO SCH ×2 (09:01→20:38)
[2021-08-18] MEDS: FENOFIBRATE 145 MG TABLET PO SCH (09:01)
[2021-08-18] MEDS: GABAPENTIN 400 MG CAPSULE PO SCH ×3 (09:01→20:38)
[2021-08-18] MEDS: METOPROLOL TARTRATE 25 MG TABLET PO SCH ×2 (09:01→20:38)
[2021-08-18] MEDS: RANOLAZINE 500 MG TABLET PO SCH ×2 (09:01→20:38)
[2021-08-18] MEDS ORDERED: KETOROLAC 30 MG/1 ML VIAL IV ONE (11:26)
[2021-08-18] MEDS ORDERED: KETOROLAC 10 MG TABLET PO PRN (11:27)
[2021-08-18] MEDS: ROSUVASTATIN 20 MG TABLET PO SCH (20:38)
[2021-08-18] MEDS: ISOSORBIDE MONONITRATE 30 MG TABLET PO SCH (20:38)
[2021-08-18] MEDS: ENOXAPARIN 40 MG/0.4 ML SYRINGE SUBCUT SCH (20:39)
[2021-08-18] MEDS ORDERED: AZITHROMYCIN INJ 500 MG in SODIUM CHLORIDE 0.9% 250 ML IV SCH (21:00)
[2021-08-18] MEDS ORDERED: cefTRIAXone 1,000 MG in SODIUM CHLORIDE 0.9% 100 ML IV SCH (21:00)
[2021-08-18] MEDS: ONDANSETRON 4 MG/2 ML VIAL IV PRN (22:42)
[2021-08-19] MEDS: ALBUTEROL/IPRATROPIUM 3 ML NEB RESP TX SCH ×2 (00:20→07:17)
[2021-08-19] MEDS: ONDANSETRON 4 MG/2 ML VIAL IV PRN (03:59)
[2021-08-19 04:51] LABS: Basophils # 0.1 10*3/uL (0.0-0.2); Basophils % 0.4 % (0.0-0.8); Eosinophils # 0.3 10*3/uL (0.0-0.87); Eosinophils % 1.6 % (0.00-10.9); Hematocrit 44.5 VOL% (42.0-52.0); Hemoglobin 14.5 GM/DL (14.0-18.0); Immature Granulocytes % 0.7 %; Immature Granulocytes Absolute 0.12 #; Lymphocytes # 0.8 10*3/uL (1.4-4.0); Lymphocytes % 4.7 % (21.2-54.2); Mean Corpuscular HGB Conc 32.6 GM/DL (32-36); Mean Corpuscular Volume 94.7 FL (87-102); Mean Platelet Volume 9.4 FL (9.6-12.0); Monocytes % 3.8 % (1.7-12.7); Neutrophils % 88.8 % (38.7-73.9); Platelet Count 338 T/CUMM (130-400); Red Cell Distribution Width 13.5 % (9.3-17.3); White Blood Count 17.9 T/CUMM (4-12)
[2021-08-19 05:14] LABS: Calcium 8.7 MG/DL (8.5-10.1); Osmolality,Calculated 277.7 MOS/KG (273-304); Potassium 3.9 MMOL/L (3.5-5.1)
[2021-08-19 05:17] LABS: Eosinophils 2 % (0-10); Lymphocytes 5 % (20-55); Segmented Neutrophils 90 % (50-85); Total Cells Counted 100
[2021-08-19 05:18] LABS: Hypochromia Slight; Microcytosis Slight; Platelet Estimate Normal
[2021-08-19] MEDS: buPROPion SR 100 MG TABLET PO SCH (08:44)
[2021-08-19] MEDS: ASPIRIN EC 81 MG TABLET PO SCH (08:44)
[2021-08-19] MEDS: FENOFIBRATE 145 MG TABLET PO SCH (08:45)
[2021-08-19] MEDS: FAMOTIDINE 20 MG TABLET PO SCH (08:45)
[2021-08-19] MEDS: METOPROLOL TARTRATE 25 MG TABLET PO SCH (08:45)
[2021-08-19] MEDS: RANOLAZINE 500 MG TABLET PO SCH (08:45)
[2021-08-19] MEDS: guaiFENesin/DM ER 600-30 MG TABLET PO SCH (08:45)
[2021-08-19] MEDS: TICAGRELOR 90 MG TABLET PO SCH (08:45)
[2021-08-19] MEDS: GABAPENTIN 400 MG CAPSULE PO SCH (08:45)
[2021-08-19] MEDS: NICOTINE 21 MG/24 HR PATCH TRANSDERM SCH (08:46)
[2021-08-19] MEDS ORDERED: cefTRIAXone 1,000 MG in SODIUM CHLORIDE 0.9% 100 ML IV SCH (09:00)
[2021-08-19] MEDS ORDERED: AZITHROMYCIN 250 MG TABLET PO SCH (09:00)
[2021-08-19 09:53] VITALS: BP 134/74
== END 2021-08-19 10:29 | disposition home or self-care (01) ==
LOC: EDBD → EDUNIT# → N.EDINP 16:54 → N.ED 16:54 → SUATTDRO 19:31 → N.TELES 21:31
PROVIDERS: ADMIT Emergency Medicine; ATTEND Internal Medicine

== ENCOUNTER 2022-02-14 21:21 | Observation (INO) ==
[2022-02-14 21:44] LABS: Basophils # 0.1 10*3/uL (0.0-0.2); Basophils % 1.1 % (0.0-0.8); Eosinophils # 0.4 10*3/uL (0.0-0.87); Eosinophils % 3.1 % (0.00-10.9); Hematocrit 42.2 VOL% (42.0-52.0); Hemoglobin 13.8 GM/DL (14.0-18.0); Immature Granulocytes % 0.5 %; Immature Granulocytes Absolute 0.06 #; Lymphocytes # 3.6 10*3/uL (1.4-4.0); Lymphocytes % 32.2 % (21.2-54.2); Mean Corpuscular HGB Conc 32.7 GM/DL (32-36); Mean Corpuscular Volume 98.8 FL (87-102); Mean Platelet Volume 9.5 FL (9.6-12.0); Neutrophils % 54.1 % (38.7-73.9); Platelet Count 414 T/CUMM (130-400); Red Blood Count 4.27 MC/CUMM (3.8-5.5); Red Cell Distribution Width 12.7 % (9.3-17.3); White Blood Count 11.3 T/CUMM (4-12)
[2022-02-14] MEDS ORDERED: NITROGLYCERIN 2% OINT 1 INCH/GM PACK TOP STA (21:48)
[2022-02-14] MEDS ORDERED: MORPHINE 2 MG/1 ML SYRINGE IV STA ×2 (21:48→22:18)
[2022-02-14 22:05] LABS: Alanine Aminotransferase 23 U/L (16-61); Albumin 3.3 G/DL (3.4-5.0); Alkaline Phosphatase 76 U/L (45-117); Aspartate Amino Transferase 21 U/L (0-37); Bilirubin,Total < 0.39 MG/DL (0.20-1.00); Blood Urea Nitrogen 4 MG/DL (7-18); Calcium 8.4 MG/DL (8.5-10.1); Carbon Dioxide 26 MMOL/L (21-32); Chloride 110 MMOL/L (98-107); Glucose 97 MG/DL (74-106); Potassium 3.2 MMOL/L (3.5-5.1); Sodium 143 MMOL/L (136-145); Total Protein 6.7 G/DL (6.4-8.2)
[2022-02-14] MEDS ORDERED: GLUCAGON 1 MG VIAL IM PRN (23:20)
[2022-02-14] MEDS ORDERED: ACETAMINOPHEN 325 MG TABLET PO PRN (23:39)
[2022-02-15] MEDS ORDERED: DEXTROSE 10% 250 ML BAG IV PRN (00:33)
[2022-02-15] MEDS: MORPHINE 2 MG/1 ML SYRINGE IV PRN ×3 (01:00→01:11)
[2022-02-15] MEDS ORDERED: LACTATED RINGERS 1,000 ML IV SCH (01:00)
[2022-02-15] MEDS: NITROGLYCERIN SL 0.4 MG TABLET SL PRN ×4 (01:38→10:05)
[2022-02-15 02:14] LABS: Alanine Aminotransferase 19 U/L (16-61); Albumin 3.2 G/DL (3.4-5.0); Alkaline Phosphatase 72 U/L (45-117); Aspartate Amino Transferase 21 U/L (0-37); Bilirubin,Total < 0.39 MG/DL (0.20-1.00); Blood Urea Nitrogen 4 MG/DL (7-18); Calcium 8.8 MG/DL (8.5-10.1); Carbon Dioxide 25 MMOL/L (21-32); Chloride 110 MMOL/L (98-107); Cholesterol 142 MG/DL (50-200); Glucose 98 MG/DL (74-106); HDL Cholesterol 38 MG/DL (40-60); Osmolality,Calculated 277.3 MOS/KG (273-304); Potassium 3.2 MMOL/L (3.5-5.1); Risk Ratio 3.74; Sodium 141 MMOL/L (136-145); Total Protein 6.2 G/DL (6.4-8.2); Triglycerides 236 MG/DL (2-150); VLDL Cholesterol 47.2 MG/DL
[2022-02-15] MEDS: POTASSIUM CHLORIDE 20 MEQ TABLET PO PRN ×2 (03:10→09:46)
[2022-02-15] MEDS: hydrALAZINE 20 MG/1 ML VIAL IV PRN ×2 (03:13→15:52)
[2022-02-15 05:08] LABS: Basophils # 0.1 10*3/uL (0.0-0.2); Basophils % 0.8 % (0.0-0.8); Eosinophils # 0.4 10*3/uL (0.0-0.87); Eosinophils % 3.4 % (0.00-10.9); Hematocrit 40.5 VOL% (42.0-52.0); Hemoglobin 13.2 GM/DL (14.0-18.0); Immature Granulocytes % 0.6 %; Immature Granulocytes Absolute 0.08 #; Lymphocytes # 3.5 10*3/uL (1.4-4.0); Lymphocytes % 27.1 % (21.2-54.2); Mean Corpuscular HGB Conc 32.6 GM/DL (32-36); Mean Corpuscular Volume 100.2 FL (87-102); Mean Platelet Volume 9.8 FL (9.6-12.0); Monocytes # 0.9 10*3/uL (0.11-0.8); Monocytes % 7.1 % (1.7-12.7); Platelet Count 393 T/CUMM (130-400); Red Blood Count 4.04 MC/CUMM (3.8-5.5); Red Cell Distribution Width 12.6 % (9.3-17.3)
[2022-02-15] MEDS ORDERED: ASPIRIN EC 325 MG TABLET PO SCH (09:00)
[2022-02-15] MEDS: TICAGRELOR 90 MG TABLET PO SCH ×2 (09:37→20:09)
[2022-02-15] MEDS: FAMOTIDINE 20 MG TABLET PO SCH ×2 (09:37→20:10)
[2022-02-15] MEDS: METOPROLOL TARTRATE 25 MG TABLET PO SCH ×2 (09:37→20:10)
[2022-02-15] MEDS: MONTELUKAST 10 MG TABLET PO SCH (09:37)
[2022-02-15] MEDS: ENOXAPARIN 40 MG/0.4 ML SYRINGE SUBCUT SCH (09:37)
[2022-02-15] MEDS: MULTIVITAMIN (CENTRUM) TABLET PO SCH (09:37)
[2022-02-15 10:23] LABS: Calcium 8.7 MG/DL (8.5-10.1); Osmolality,Calculated 277.3 MOS/KG (273-304); Potassium 3.7 MMOL/L (3.5-5.1)
[2022-02-15] MEDS ORDERED: MORPHINE 2 MG/1 ML SYRINGE IV ONE (11:48)
[2022-02-15] MEDS ORDERED: ALUM/MAG/SIMETH/LIDO VISC 1:1 30 ML BOTTLE PO STA (11:48)
[2022-02-15] MEDS: GABAPENTIN 300 MG CAPSULE PO SCH (12:02)
[2022-02-15] MEDS ORDERED: DIAZEPAM 5 MG TABLET PO ONE (12:48)
[2022-02-15] MEDS ORDERED: diphenhydrAMINE CAP 25 MG CAPSULE PO ONE (12:48)
[2022-02-15] MEDS ORDERED: HEPARIN/NACL 0.9% 2 UNITS/ML 2,000 UNIT/1,000 ML BAG IV ONE (12:52)
[2022-02-15] MEDS ORDERED: HYDROmorphone 1 MG/1 ML SYRINGE ONE ×2 (12:52→13:32)
[2022-02-15] MEDS ORDERED: MIDAZOLAM 2 MG/2 ML VIAL ONE (12:52)
[2022-02-15] MEDS ORDERED: SODIUM CHLORIDE 0.45% 1,000 ML IV SCH (13:00)
[2022-02-15] MEDS ORDERED: diphenhydrAMINE 50 MG/1 ML VIAL ONE (13:22)
[2022-02-15] MEDS ORDERED: ONDANSETRON 4 MG/2 ML VIAL IV PRN (13:58)
[2022-02-15] MEDS ORDERED: hydrALAZINE 20 MG/1 ML VIAL IV ONE (15:52)
[2022-02-15] MEDS ORDERED: LOSARTAN 25 MG TABLET PO SCH (16:00)
[2022-02-15] MEDS: LOSARTAN 25 MG TABLET PO SCH (20:10)
[2022-02-15] MEDS: NICOTINE 21 MG/24 HR PATCH TRANSDERM SCH (20:10)
[2022-02-15] MEDS ORDERED: ISOSORBIDE MONONITRATE 30 MG TABLET PO SCH (21:00)
[2022-02-15] MEDS ORDERED: ROSUVASTATIN 20 MG TABLET PO SCH (21:00)
[2022-02-15] MEDS ORDERED: hydrALAZINE 25 MG TABLET PO SCH (21:00)
[2022-02-16 05:11] LABS: Basophils # 0.1 10*3/uL (0.0-0.2); Basophils % 1.3 % (0.0-0.8); Eosinophils # 0.4 10*3/uL (0.0-0.87); Eosinophils % 3.3 % (0.00-10.9); Hematocrit 39.6 VOL% (42.0-52.0); Hemoglobin 12.7 GM/DL (14.0-18.0); Immature Granulocytes Absolute 0.11 #; Lymphocytes % 28.1 % (21.2-54.2); Mean Corpuscular HGB Conc 32.1 GM/DL (32-36); Mean Platelet Volume 9.6 FL (9.6-12.0); Monocytes # 1.1 10*3/uL (0.11-0.8); Monocytes % 9.7 % (1.7-12.7); Neutrophils % 56.6 % (38.7-73.9); Platelet Count 356 T/CUMM (130-400); Red Blood Count 3.92 MC/CUMM (3.8-5.5); Red Cell Distribution Width 12.8 % (9.3-17.3); White Blood Count 10.8 T/CUMM (4-12)
[2022-02-16 05:37] LABS: Calcium 8.4 MG/DL (8.5-10.1); Osmolality,Calculated 278.3 MOS/KG (273-304); Potassium 3.6 MMOL/L (3.5-5.1)
[2022-02-16 07:34] VITALS: BP 118/60
[2022-02-16] MEDS: TICAGRELOR 90 MG TABLET PO SCH (08:17)
[2022-02-16] MEDS: MONTELUKAST 10 MG TABLET PO SCH (08:17)
[2022-02-16] MEDS: MULTIVITAMIN (CENTRUM) TABLET PO SCH (08:18)
[2022-02-16] MEDS: GABAPENTIN 300 MG CAPSULE PO SCH (08:18)
[2022-02-16] MEDS: ENOXAPARIN 40 MG/0.4 ML SYRINGE SUBCUT SCH (08:18)
[2022-02-16] MEDS: NICOTINE 21 MG/24 HR PATCH TRANSDERM SCH (08:18)
[2022-02-16] MEDS: METOPROLOL TARTRATE 25 MG TABLET PO SCH (08:18)
[2022-02-16] MEDS: LOSARTAN 25 MG TABLET PO SCH (08:18)
[2022-02-16] MEDS: FAMOTIDINE 20 MG TABLET PO SCH (08:18)
[2022-02-16] MEDS ORDERED: ASPIRIN EC 81 MG TABLET PO SCH (09:00)
== END 2022-02-16 10:46 | disposition home or self-care (01) ==
LOC: N.EDINP 21:21 → N.ED 21:21 → N.2W 02-15 12:59
PROVIDERS: ADMIT Hospitalist; ATTEND Hospitalist
PROC: CLCCHCL (ICD-10-PCS; 2022-02-15 13:15)